=== PATIENT | male | born 1965 | race Caucasian/White ===

== ENCOUNTER 2018-09-10 07:36 | Day surgery (SDC) | payer OTHER ==
--- OUTSIDE RECORDS SUMMARY | 2018-09-10 07:50 | XMS REPORT | Continuity of Care Document ---
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 Inactive [facility] MI, Drug Form: 2013 AUSTEN, Dosing Weight 58.182, kg, ONCE, Start date: 01/25/14 17:00:00, Duration: 1 doses or times, Stop date: 01/25/14 17:00:00Notes: Non formulary item Cascara sagrada 450 mg, 1 cap, Inactive [facility] Route: PO, Drug 2013 Form: CAP, Dosing Weight 58.182, kg, ONCE, Start date: 01/25/14 14:00:00, Stop date: 01/25/14 14:00:00Notes: Non-Formulary Item Milk of Magnesia 60 ml, Route: Inactive [facility] PO, Drug Form: 2014 SUSP, Dosing Weight 58.182, kg, ONCE, Start date: 01/25/14 14:00:00, Stop date: 01/25/14 14:00:00Notes: (Same as: Milk of Magnesia, MOM) Baclofen 10 mg, 1 tab, No Longer [facility] Route: GT, Drug Active 2013 form: TAB, TID, Dosing Weight 66, kg, Start date: 01/25/14 13:00:00, Duration: 60 day, Stop date: 03/26/14 8:30:00Notes: (Same As: Kassandraal) sennosides, [facility] 8.8 mg, 5 mL, Inactive [facility] Route: GT, Drug 2013 Form: SYRP, Dosing Weight 66, kg, QNoon, Start date: 01/25/14 12:00:00, Duration: 60 day, Stop date: 03/25/14 12:00:00Notes: (Same as: Senokot) Amantadine 100 mg, 10 mL, No Longer [facility] Route: GT, Drug Active 2013 form: SYRP, BID, Dosing Weight 66, kg, Start date: 01/25/14 12:00:00, Duration: 60 day, Stop date: 03/26/14 7:00:00Notes: (Same as: Symmetrel) Metoclopramide 5 mg, 5 mL, No Longer [facility] Route: GT, Drug Active 2013 form: SYRP, Q6H, Dosing Weight 66, kg, Start date: 01/25/14 12:00:00, Duration: 60 day, Stop date: 03/26/14 6:00:00Notes: (Same as: Reglan) Take 30 min before meals POLYETHYLENE GLYCOL 17 gm, 1 pkt, No Longer [facility] 3350 Route: GT, Drug Active 2013 form: PWDR, Daily, Dosing Weight 66, kg, Start date: 01/25/14 8:30:00, Duration: 30 day, Stop date: 02/23/14 8:30:00Notes: Dissolve in 8 oz of water or juice. (Same as: Miralax) lansoprazole 30 mg, Route: No Longer [facility] GT, Drug form: Active 2013 TABDIS, Daily, Dosing Weight 66, kg, Start date: 01/25/14 8:30:00, Duration: 30 day, Stop date: 02/23/14 8:30:00 aspirin 325 mg 325 mg, 1 tab, No Longer [facility] tablet Route: GT, Drug Active 2013 form: TAB, Daily, Dosing Weight 66, kg, Start date: 01/25/14 8:30:00, Duration: 60 day, Stop date: 03/25/14 8:30:00Notes: Take with food. NexIUM 40 mg, 1 pkt, No Longer [facility] Route: GT, Drug Active 2013 form: PWDR, Before Breakfast, Start date: 01/25/14 7:30:00, Duration: 30 day, Stop date: 03/25/14 7:30:00Notes: Same as: NexIUM Non-Formulary For nasogastric/gas tric use empty the contents of the sachet into a cup with 15 mL water and drawn up into the syringe, allow to thicken over 2 minutes, and administer within 30 minutes. Propranolol 20 mg, 2 tab, No Longer [facility] Route: GT, Drug Active 2013 form: TAB, Q8H, Dosing Weight 66, kg, Start date: 01/25/14 0:00:00, Duration: 60 day, Stop date: 03/25/14 16:00:00Notes: Give with food. (Same as: Inderal) Levetiracetam 250 500 mg, 5 mL, No Longer [facility] MG Oral Tablet Route: GT, Drug Active 2013 [Keppra] form: SOLN, BID, Dosing Weight 66, kg, Start date: 01/24/14 21:00:00, Duration: 60 day, Stop date: 03/25/14 8:30:00Notes: Same as: Keppra Enoxaparin 30 mg, 0.3 mL, No Longer [facility] Route: SUB-Q, Active 2013 Drug form: INJ, Q12H, Dosing Weight 66, kg, Start date: 01/24/14 21:00:00, Duration: 30 day, Stop date: 02/23/14 9:00:00Notes: (Same as: Lovenox) Docusate Sodium 100 100 mg, 10 mL, No Longer [facility] MG Oral Capsule Route: GT, Drug Active 2013 [Colace] form: LIQ, Q12H, Dosing Weight 66, kg, Start date: 01/24/14 21:00:00, Duration: 60 day, Stop date: 03/25/14 9:00:00Notes: (Same as: Colace) Baclofen 15 mg, 1.5 tab, No Longer [facility] Route: GT, Drug Active 2013 form: TAB, TID, Dosing Weight 66, kg, Start date: 01/24/14 21:00:00, Duration: 60 day, Stop date: 03/25/14 13:00:00Notes: (Same As: Lioresal) Amantadine 100 mg, 10 mL, No Longer [facility] Route: GT, Drug Active 2013 form: SYRP, BID, Dosing Weight 66, kg, Start date: 01/24/14 21:00:00, Duration: 30 day, Stop date: 02/23/14 8:30:00Notes: (Same as: Symmetrel) Metoclopramide 10 mg, 10 mL, No Longer [facility] Route: GT, Drug Active 2013 form: SYRP, Q6H, Dosing Weight 66, kg, Start date: 01/24/14 18:00:00, Duration: 30 day, Stop date: 02/23/14 12:00:00Notes: (Same as: Reglan) Take 30 min before meals Phenobarbital 1,320 mg, 20.31 No Longer [facility] mL, Route: IVP, Active 2013 Drug form: INJ, PRN, Dosing Weight 66, kg, PRN Seizure, Start date: 01/24/14 17:20:00, Duration: 60 day, Stop date: 03/25/14 16:19:00Notes: (Same as: Barbita) Lorazepam 2 mg, 1 mL, No Longer [facility] Route: IVP, Active 2013 Drug form: INJ, PRN, Dosing Weight 66, kg, PRN Seizure, Start date: 01/24/14 17:20:00, Duration: 60 day, Stop date: 03/25/14 16:19:00Notes: (Same as: Ativan) Phenytoin 990 mg, 19.8 No Longer [facility] mL, Route: IVP, Active 2013 Drug form: INJ, PRN, Dosing Weight 66, kg, PRN Seizure, Start date: 01/24/14 17:20:00, Duration: 60 day, Stop date: 03/25/14 16:19:00Notes: (Same as: Dilantin) Concentration=5 0mg/ml Do not infuse faster than 50 mg/min Saline Flush 0.9% 10 mL, Route: No Longer [facility] IVP, Drug Form: 2013 INJ, Dosing Weight 66, kg, PRN, PRN Line Flush, Start date: 01/24/14 17:20:00, Duration: 30 day, Stop date: 02/23/14 17:19:00Notes: (Same as: BD Posiflush) Bisacodyl 10 mg, 1 supp, No Longer [facility] Route: MI, Drug Active 2013 form: SUPP, Daily, Dosing Weight 66, kg, PRN as needed for constipation, Start date: 01/24/14 17:09:00, Duration: 30 day, Stop date: 02/23/14 17:08:00Notes: (Same As: Dulcolax, Bisco-Lax) Tylenol 325 mg, 10.15 No Longer [facility] mL, Route: GT, Active 2013 Drug form: LIQ, Q4H, Dosing Weight 66, kg, PRN Pain, Start date: 01/24/14 17:09:00, Duration: 30 day, Stop date: 02/23/14 17:08:00Notes: Max acetaminophen=4 000mg/day (4 gm/day). (Same as: Tylenol) Acetaminophen 325 1 tab, Route: No Longer [facility] MG / Hydrocodone GT, Drug Form: Active 2013 Bitartrate 5 MG TAB, Dosing Oral Tablet [Artie Weight 66, kg, 5/325] Q6H, PRN as needed for pain, Start date: 01/24/14 17:09:00, Stop date: 03/26/14 17:08:00Notes: (Same as: Artie 325/5) Do not exceed 4gm/day of acetaminophen. Baclofen 15 mg, PEG, On Hold [facility] TID, 0 2013 Refill(s) Acetaminophen 325 325 mg=1 tab, On Hold [facility] MG Oral Tablet PEG, Q4H, Pain, 2014 [Tylenol] # 60 tab, 0 Refill(s) Levetiracetam 250 500 mg=2 tab, On Hold [facility] MG Oral Tablet PEG, BID, # 120 2014 [Keppra] tab, 0 Refill(s) lansoprazole 30 mg 30 mg=1 tab, On Hold [facility] oral tablet, PEG, Daily, # 2014 disintegrating 30 tab, 0 Refill(s) Acetaminophen 325 1 tab, PEG, On Hold [facility] MG / Hydrocodone Q6H, # 30 tab, 2014 Bitartrate 5 MG 0 Refill(s) Oral Tablet [Artie 5/325] Docusate Sodium 100 100 mg=1 cap, On Hold [facility] MG Oral Capsule PEG, Q12H, 2014 [Colace] Constipation, # 20 cap, 0 Refill(s) polyethylene glycol 17 gm, PEG, Active [place] 3350 oral powder Daily, # 527 2014 Medical for reconstitution gm, 0 Center Refill(s), other pantoprazole 40 mg =40 mg, IVP, Active [facility] intravenous BID, # 500 mg, 2014 Medical injection 0 Refill(s), Center other metoclopramide 5 10 mg=2 mL, Active [place] mg/mL injectable IVP, Q6H, # 200 2014 Medical solution mL, 0 Center Refill(s), other Melatonin 3 mg oral 3 mg=1 tab, PO, Active [facility] tablet Bedtime, # 60 2013 Medical tab, 0 Center Refill(s), other labetalol 5 mg/mL 10 mg=2 mL, IV, Active [facility] intravenous Q4H, 2013 Medical solution Hypertension | Center sbp greater than 140 and hr greater than 100, # 200 mL, 0 Refill(s), other Erythromycin 800 mg=10 mL, Active [facility] Ethylsuccinate 80 PO, ABXQ6H, # 2013 Medical MG/ML Oral 200 mL, 0 Center Suspension Refill(s), other enoxaparin 30 30 mg=0.3 mL, Active [place] mg/0.3 mL SUB-Q, Q12H, # 2013 Medical subcutaneous 30 mL, 0 Center solution Refill(s), other bisacodyl 10 mg 10 mg=1 supp, Active [facility] rectal suppository MI, ONCE, 2013 Medical Constipation, # Center 1 supp, 0 Refill(s), other aspirin 325 mg 325 mg=1 tab, Active [facility] tablet PO, Daily, # 50 2013 Medical tab, 0 Center Refill(s), other amantadine 10 mg/ml 100 mg=10 mL, Active [facility] cmpd oral PO, BID, # 500 2013 Medical suspension mL, 0 Center Refill(s), other Potassium Chloride 40 mEq=30 mL, Active [facility] 1.33 MEQ/ML Oral PEG, ONCE, 2013 Medical Solution Abnormal Lab Center Result, # 30 mL, 0 Refill(s), other senna 8.8 mg/5 mL 17.6 mg=10 mL, Active [facility] oral syrup PO, QNoon, # 2013 Medical 240 mL, 0 Center Refill(s), other propranolol 20 mg 20 mg=1 tab, Active [facility] oral tablet PO, Q8H, # 30 2013 Medical tab, 0 Center Refill(s), other Erythromycin 800 mg, 10 mL, No Longer [facility] Ethylsuccinate 80 Route: PO, Drug Active 2013 Medical MG/ML Oral Form: SUSP, Center Suspension Dosing Weight 66, kg, ABXQ6H, Start date: 12/26/13 23:00:00, Stop date: 01/25/14 17:00:00Notes: (Same as: E.E.S.-400) Magnesium Sulfate 2 gm, 50 mL, Inactive [facility] Route: IVPB2013 Medical Drug form: INJ, Center Q2H, Dosing Weight 66, kg, Total dose=4 gm, Start date: 12/26/13 10:00:00, Duration: 2 doses or times, Stop date: 12/26/13 12:00:00 Reglan 10 mg, 2 mL, No Longer [facility] Route: IVP, Active 2013 Medical Drug form: INJ, Center Q6H, Dosing Weight 66, kg, Start date: 12/25/13 0:00:00, Duration: 30 day, Stop date: 01/23/14 18:00:00Notes: (Same as: Reglan) Erythromycin 500 mg, 1 tab, No Longer [facility] Route: PO, Drug Active 2013 Medical form: TAB, Center ABXQ6H, Dosing Weight 66, kg, Start date: 12/24/13 20:00:00, Duration: 30 day, Stop date: 01/23/14 16:00:00Notes: (Same as: erythromycin base) Give With Food "Do Not Crush" magnesium sulfate 2 gm, 50 mL, Inactive [facility] Route: IVPB2013 Medical Drug form: INJ, Center Q2H, Dosing Weight 66, kg, Total dose=4 gm, Start date: 12/24/13 16:05:00, Duration: 1 doses or times, Stop date: 12/24/13 16:05:00 Magnesium Sulfate 2 gm, 50 mL, Inactive [facility] Route: IVPB2013 Medical Drug form: INJ, Center Q2H, Dosing Weight 66, kg, Total dose=4 gm, Start date: 12/24/13 10:00:00, Duration: 2 doses or times, Stop date: 12/24/13 12:00:00 Phosphorus / 18 mmol, 6 mL, Inactive [facility] Potassium Route: IVPB2013 Medical ONCE, Dosing Center Weight 66, kg, Start date: 12/24/13 9:52:00, Stop date: 12/24/13 9:52:00Notes: (Same as: K Phosphate.) 1 mMol phoshate has 1.47 mEq potassium Infuse over 4 hours Potassium Chloride 20 mEq, 100 mL, Inactive [place] Route: IVPB, 2013 Medical Drug form: INJ, Center ONCE, Dosing Weight 66, kg, Start date: 12/24/13 9:51:00, Stop date: 12/24/13 9:51:00Notes: (Same as: KCL) Infuse no faster than 10 mEq/hr if given peripherally. Neutra-Phos 2 pkt, Route: Inactive [facility] PO, Drug Form: 2013 Medical PDR/REC, Dosing Center Weight 66, kg, ONCE, Start date: 12/24/13 9:25:00, Stop date: 12/24/13 9:25:00Notes: (Same as: Neutra-Phos) Each 1.25 gm pkt has 250mg phosphorous. Mix w/2.5oz water and stir. Potassium Chloride 40 mEq, 2 tab, Inactive [facility] Route: PO, Drug 2013 Medical form: ERTAB, Center ONCE, Dosing Weight 66, kg, Electrolyte replacement, Start date: 12/24/13 9:25:00, Stop date: 12/24/13 9:25:00Notes: (Same as: K-Dur 20) "Do Not Crush" With food and full glass of water Protonix 80 mg, Route: No Longer [facility] IVP, BID, Active 2013 Medical Dosing Weight Center 66, kg, Start date: 12/24/13 9:00:00, Duration: 30 day, Stop date: 01/22/14 17:00:00 Protonix 40 mg, Route: No Longer [facility] IVP, Drug form: Active 2013 Medical INJ, BID, Center Dosing Weight 66, kg, Start date: 12/23/13 17:00:00, Duration: 30 day, Stop date: 01/22/14 9:00:00Notes: For IV push reconstitute with 10 ml 0.9% sodium chloride and push over 2 minutes. (Same as: Protonix) Protonix 40 mg, Route: Inactive [facility] IVP, Drug form: 2013 Medical INJ, Daily, Center Dosing Weight 66, kg, Patient is NPO, Priority: STAT, Start date: 12/23/13 6:48:00, Duration: 30 day, Stop date: 01/21/14 9:00:00Notes: (Same as: Protonix) Propranolol 20 mg, 1 tab, No Longer [facility] Route: PO, Drug Active 2013 Medical form: TAB, Q8H, Center Dosing Weight 66, kg, Start date: 12/23/13 0:00:00, Duration: 30 day, Stop date: 01/21/14 16:00:00Notes: Give with food. (Same as: Inderal) Geodon 20 mg, 1 cap, No Longer [facility] Route: PO, Drug Active 2013 Medical form: CAP, Center Q12H, Dosing Weight 66, kg, PRN Agitation, Start date: 12/22/13 19:25:00, Duration: 30 day, Stop date: 01/21/14 19:24:00Notes: (Same As: Geodon) Give with Food Labetalol 10 mg, 2 mL, No Longer [place] Route: IV, Drug Active 2013 Medical form: INJ, Q4H, Center Dosing Weight 66, kg, PRN Hypertension, Start date: 12/22/13 19:25:00, Duration: 30 day, Stop date: 01/21/14 19:24:00, sbp greater than 140 and hr greater than 100 Potassium Chloride 20 mEq, 100 mL, Inactive [place] Route: IVPB, 2013 Medical Drug form: INJ, Center ONCE, Dosing Weight 66, kg, Start date: 12/22/13 16:09:00, Stop date: 12/22/13 16:09:00Notes: (Same as: KCL) Infuse no faster than 10 mEq/hr if given peripherally. Potassium Chloride 40 mEq, 30 mL, No Longer [facility] Route: PEG, Active 2013 Medical Drug form: LIQ, Center ONCE, Dosing Weight 66, kg, PRN Abnormal Lab Result, Electrolyte replacement, Start date: 12/22/13 16:07:00, Stop date: 01/21/14 16:06:00Notes: (Same as: Potassium Chloride) Lactated Ringers IV 1,000 mL, Rate: No Longer [facility] 1,000 mL 100 ml/hr, Active 2013 Medical Infuse over: 10 Center hr, Route: IV, Dosing Weight 66 kg, Total Volume: 1,000, Start date: 12/22/13 15:20:00, Duration: 30 day, Stop date: 01/21/14 15:19:00 Calcium Chloride 1,000 mL, Rate: Inactive [facility] 0.0014 MEQ/ML / 125 ml/hr, 2013 Medical Potassium Chloride Infuse over: 8 Center 0.004 MEQ/ML / hr, Route: IV, Sodium Chloride Dosing Weight 0.103 MEQ/ML / 66 kg, Total Sodium Lactate Volume: 1,000, 0.028 MEQ/ML Start date: Injectable Solution 12/21/13 14:44:00, Stop date: 12/22/13 0:00:00 Metoprolol 1 mg, 1 mL, Inactive 12/21[facility] Route: IVP2013 Medical Drug form: INJ, Center Q5Min, Dosing Weight 66, kg, PRN Other -See Comment, Start date: 12/21/13 14:44:00, Duration: 5 doses or times, Stop date: 12/22/13 0:00:00Notes: (Same as: Lopressor) Push over 2 minutes Hydromorphone 0.5 mg, 0.25 Inactive [facility] mL, Route: IVP, 2013 Medical Drug form: INJ, Center Q5Min, Dosing Weight 66, kg, PRN Pain Score 7-10, Start date: 12/21/13 14:44:00, Duration: 4 doses or times, Stop date: 12/22/13 0:00:00Notes: Same as: Dilaudid Ondansetron 4 mg, 2 mL, Inactive 12/21[facility] Route: IVP, 2013 Medical Drug form: INJ, Center ONCE, Dosing Weight 66, kg, PRN Nausea & Vomiting, Start date: 12/21/13 14:44:00Notes: (Same as: Zofran) Fleet Enema 133 ml, Route: Inactive 12/18[facility] [place], Drug Form: 2013 Medical AUSTEN, Dosing Center Weight 66, kg, ONCE, Start date: 12/18/13 11:03:00, Stop date: 12/18/13 11:03:00 Fleet Enema 133 ml, Route: Inactive [facility] MI, Drug Form: 2013 Medical AUSTEN, Dosing Center Weight 66, kg, ONCE, Start date: 12/17/13 21:12:00, Stop date: 12/17/13 21:12:00 Fleet Enema 133 ml, Route: Inactive [facility] MI, Drug Form: 2013 Medical AUSTEN, Dosing Center Weight 66, kg, ONCE, STAT, Start date: 12/17/13 20:03:00, Stop date: 12/17/13 20:03:00 Fleet Enema 133 ml, Route: Inactive [facility] MI, Drug Form: 2013 Medical AUSTEN, Dosing Center Weight 66, kg, ONCE, Start date: 12/17/13 18:39:00, Stop date: 12/17/13 18:39:00 Miralax 17 gm, 1 pkt, No Longer [place] Route: PEG, Active 2013 Medical Drug form: Center PWDR, Daily, Dosing Weight 66, kg, Start date: 12/17/13 15:00:00, Duration: 30 day, Stop date: 01/16/14 9:00:00Notes: Dissolve in 8 oz of water or juice. (Same as: Miralax) Bisacodyl 10 mg, 1 supp, No Longer [facility] Route: MI, Drug Active 2013 Medical form: SUPP, Center ONCE, Dosing Weight 66, kg, PRN Constipation, Start date: 12/17/13 11:43:00Notes: (Same As: Dulcolax, Bisco-Lax) Fleet Enema 133 ml, Route: Inactive [facility] MI, Drug Form: 2013 Medical AUSTEN, Dosing Center Weight 66, kg, ONCE, Start date: 12/17/13 8:30:00, Stop date: 12/17/13 8:30:00 Zosyn 3.375 gm, Inactive [facility] Route: IVPB, 2013 Medical Drug form: Center PDR/INJ, ABXQ6H, Dosing Weight 66, kg, Start date: 12/17/13 8:00:00, Duration: 30 day, Stop date: 01/16/14 2:00:00 Iohexol 78 mL, Route: No Longer [place] IVP, Drug Form: Active 2013 Medical SOLN, Dosing Center Weight 66, kg, ONCALL, STAT, Start date: 12/17/13 1:40:00, Duration: 1 doses or times, Stop date: 12/18/13 0:00:00, Weight=60 - 74kg -- "To be infused by Radiology Staff ONLY"Special Instructions: Weight=60 - 74kg -- "To be infused by Radiology Staff ONLY"Notes: (same as:Omnipaque 350). Flagyl 500 mg, 100 mL, No Longer [place] Route: IVPB, 2013 Medical Drug form: INJ, Center ABXQ6H, Dosing Weight 66, kg, Start date: 12/16/13 22:00:00, Duration: 30 day, Stop date: 01/15/14 16:00:00Notes: (Same as: Flagyl) Avoid alcohol. Zosyn 3.375 gm, No Longer [place] Route: IVPB, 2013 Medical Drug form: Center PDR/INJ, ABXQ8H, Dosing Weight 66, kg, CrCl >=20 ml/min infuse over 4 hours, Start date: 12/16/13 22:00:00, Stop date: 01/15/14 14:00:00Notes: (Same as: Zosyn) Dosing based on Piperacillin component NS 1,000 mL 1,000 mL, Rate: No Longer [place] 100 ml/hr, 2013 Medical Infuse over: 10 Center hr, Route: IV, Dosing Weight 66 kg, Total Volume: 1,000, Start date: 12/16/13 21:47:00, Duration: 30 day, Stop date: 01/15/14 21:46:00 Propranolol 20 mg, Route: No Longer [place] PEG, Drug form: Active 2013 Medical TAB, Q6H, Center Dosing Weight 66, kg, Start date: 12/16/13 12:00:00, Duration: 30 day, Stop date: 01/15/14 6:00:00Notes: Give with food. (Same as: Inderal) Amantadine 100 mg, 10 mL, No Longer [place] Route: PO, Drug Active 2013 Medical form: SYRP, Center BID, Dosing Weight 66, kg, please change time to 8 am and noon, Start date: 12/16/13 12:00:00, Duration: 30 day, Stop date: 01/15/14 8:00:00Notes: (Same as: Symmetrel) Milk of Magnesia 30 ml, Route: Inactive [place] PEG, Drug Form: 2013 Medical SUSP, Dosing Center Weight 66, kg, ONCE, Start date: 12/16/13 11:18:00, Stop date: 12/16/13 11:18:00Notes: (Same as: Milk of Magnesia, MOM) Ritalin 5 mg, 1 tab, No Longer [facility] Route: PO, Drug Active 2013 Medical form: TAB, Center BID-12-14, Dosing Weight 66, kg, please change time to 8 am and noon, Start date: 12/16/13 8:00:00, Duration: 30 day, Stop date: 01/14/14 13:00:00Notes: (Same as:Ritalin) Acetaminophen 325 1 tab, Route: No Longer [place] MG / Hydrocodone PEG, Drug Form: Active 2013 Medical Bitartrate 5 MG TAB, Dosing Center Oral Tablet [Artie Weight 66, kg, 5/325] Q6H, Start date: 12/15/13 18:00:00, Duration: 30 day, Stop date: 01/14/14 12:00:00Notes: (Same as: Artie 325/5) Do not exceed 4gm/day of acetaminophen. Acetaminophen 325 1 tab, Route: No Longer [place] MG / Hydrocodone PEG, Drug Form: Active 2013 Medical Bitartrate 5 MG TAB, Dosing Center Oral Tablet [Artie Weight 66, kg, 5/325] Q6H, PRN Pain, Start date: 12/15/13 13:46:00, Stop date: 01/14/14 13:45:00Notes: (Same as: Artie 325/5) Do not exceed 4gm/day of acetaminophen. Acetaminophen 325 1 tab, Route: Inactive [place] MG / Hydrocodone PO, Drug Form: 2013 Medical Bitartrate 5 MG TAB, Dosing Center Oral Tablet [Artie Weight 66, kg, 5/325] Q6H, PRN Pain, Start date: 12/15/13 13:45:00, Duration: 30 day, Stop date: 01/14/14 13:44:00 Melatonin 3 mg oral 3 mg, 1 tab, No Longer [place] tablet Route: PO, Drug Active 2013 Medical Form: TAB, Center Dosing Weight 66, kg, Bedtime, Start date: 12/14/13 21:00:00, Duration: 30 day, Stop date: 01/12/14 21:00:00Notes: (Same as: Melatonin) Non-Formulary Drug Dulcolax Laxative 10 mg, 1 supp, No Longer [facility] Route: [place], Drug Active 2013 Medical form: SUPP, Center Bedtime, Start date: 12/14/13 21:00:00, Duration: 30 day, Stop date: 01/12/14 21:00:00Notes: (Same As: Dulcolax, Bisco-Lax) Levaquin 500 mg, 1 tab, No Longer [facility] Route: PEG, Active 2013 Medical Drug form: TAB, Center [id number], Dosing Weight 66, kg, Start date: 12/14/13 19:00:00, Duration: 30 day, Stop date: 01/12/14 19:00:00 Ritalin 5 mg, 1 tab, No Longer [place] Route: PO, Drug Active 2013 Medical form: TAB, BID, Center Dosing Weight 66, kg, please change time to 8 am and noon, Start date: 12/14/13 17:00:00, Duration: 30 day, Stop date: 01/13/14 9:00:00Notes: (Same as:Ritalin) sennosides, [facility] 17.6 mg, 10 mL, No Longer [facility] Route: PO, Drug Active 2013 Medical Form: SYRP, Center Dosing Weight 66, kg, QNoon, Start date: 12/14/13 12:00:00, Duration: 30 day, Stop date: 01/12/14 12:00:00Notes: (Same as: Senokot) Amantadine 50 mg, 5 mL, No Longer [facility] Route: PO, Drug Active 2013 Medical form: SYRP, Center BID, Dosing Weight 66, kg, please change time to 8 am and noon, Start date: 12/14/13 12:00:00, Duration: 30 day, Stop date: 01/13/14 8:00:00Notes: (Same as: Symmetrel) Oxycodone 2.5 mg, 2.5 mL, No Longer [place] Hydrochloride 5 MG Route: PO, Drug Active 2013 Medical Oral Tablet form: LIQ, Q6H, Center Dosing Weight 81.818, kg, Start date: 12/14/13 12:00:00, Duration: 30 day, Stop date: 01/13/14 6:00:00Notes: (Same as: 'Roxicodone) Milk of Magnesia 30 ml, Route: Inactive [facility] PEG, Drug Form: 2013 Medical SUSP, Dosing Center Weight 66, kg, ONCE, Start date: 12/14/13 11:21:00, Stop date: 12/14/13 11:21:00Notes: (Same as: Milk of Magnesia, MOM) Tylenol 325 mg, 1 tab, No Longer [facility] Route: PO, Drug Active 2013 Medical form: TAB, Q4H, Center Dosing Weight 66, kg, PRN Fever, Start date: 12/13/13 4:39:00, Duration: 30 day, Stop date: 01/12/14 4:38:00Notes: Do not exceed 4 gm/day. (Same as: Tylenol) Bromocriptine 0.8 2.5 mg, 1 tab, No Longer [place] MG Oral Tablet Route: PO, Drug Active 2013 Medical form: TAB, Center Q12H, Dosing Weight 66, kg, Start date: 12/12/13 9:00:00, Duration: 30 day, Stop date: 01/10/14 21:00:00Notes: (Same As: Parlodel) Morphine 2 mg, Route: Inactive [place] IVP, ONCE, 2013 Medical Dosing Weight Center 66, kg, Start date: 12/12/13 4:10:00, Stop date: 12/12/13 4:10:00 Morphine 2 mg, 1 mL, Inactive [place] Route: IVP, 2013 Medical Drug form: INJ, Center ONCE, Dosing Weight 66, kg, Start date: 12/11/13 22:39:00, Stop date: 12/11/13 22:39:00Notes: (Same as:MORPhine Sulfate) magnesium sulfate 2 gm, 50 mL, Inactive [place] Route: IVPB, 2013 Medical Drug form: INJ, Center ONCE, Start date: 12/10/13 4:30:00, Stop date: 12/10/13 4:30:00 Rocuronium 50 mg, 5 mL, Inactive [place] Route: IV, Drug 2013 Medical form: INJ, Center ONCE, Dosing Weight 66, kg, Start date: 12/09/13 11:40:00, Stop date: 12/09/13 11:40:00Notes: (Same as: Rodolfo) Propofol 10 MG/ML 1,000 mg, 100 No Longer [place] Injectable mL, Rate: Active 2013 Medical Suspension Titrate as Center directed, Dosing Weight 66, kg, Route: IV, Total Volume: 100 ml, Start date: 12/09/13 11:38:00, Duration: 30 day, Stop date: 01/08/14 11:37:00, Replace Every: 12 hrNotes: If Diprivan - change bottle & tubing every 12 hr Per state nursing law propofol can only be given by a nurse if patient is intubated or being intubated (unless the nurse is a CONSTRUCTION CARPENTER). Same as: Diprivan Lidocaine 5 ml, Route: Inactive [place] Hydrochloride 40 MUCOUS MEM, 2013 Medical MG/ML Mucous Drug Form: [place] Membrane Topical SOLN, Dosing Solution Weight 66, kg, ONCE, Start date: 12/09/13 11:15:00, Stop date: 12/09/13 11:15:00Notes: (Same as: Xylocaine) Fentanyl 200 microgram, Inactive [place] 4 mL, Route: 2013 Medical IVP, Drug form: Center INJ, ONCE, Dosing Weight 66, kg, Start date: 12/09/13 11:15:00, Stop date: 12/09/13 11:15:00Notes: (Same as: Sublimaze) Preservative free. Propofol 10 MG/ML 500 mg, 50 mL, No Longer [place] Injectable Rate: Titrate Active 2013 Medical Suspension as directed, Center Dosing Weight 66, kg, Route: IV, Total Volume: 50 ml, Start date: 12/09/13 11:14:00, Duration: 30 day, Stop date: 01/08/14 11:13:00, Replace Every: 12 hrNotes: If Diprivan - change bottle & tubing every 12 hr Per state nursing law propofol can only be given by a nurse if patient is intubated or being intubated (unless the nurse is a CONSTRUCTION CARPENTER). Same as: Diprivan Magnesium Sulfate 1 gm, 100 mL, Inactive [place] Route: IVPB, 2013 Medical Drug form: INJ, Center ONCE, Dosing Weight 66, kg, Total dose=2 gm, Start date: 12/07/13 10:55:00, Duration: 1 doses or times, Stop date: 12/07/13 10:55:00 potassium 250 mg, 1 tab, No Longer [place] phosphate-sodium Route: PO, Drug Active 2013 Medical phosphate 250 mg-45 Form: TAB, Center mg-298 mg oral TID-Before tablet Meals, Start date: 12/06/13 18:00:00, Duration: 30 day, Stop date: 01/05/14 16:30:00Notes: Non-Fomrulary Drug. (Same as: K-Phos) Ancef 2 gm, Route: Inactive [facility] IVPB, ONCE, 2013 Medical Dosing Weight Center 66, kg, Start date: 12/06/13 16:01:00, Duration: 1 doses or times, Stop date: 12/06/13 16:01:00 Dulcolax Laxative 10 mg, 1 supp, No Longer [facility] Route: MI, Drug Active 2013 Medical form: SUPP, Center Daily, Start date: 12/06/13 9:00:00, Duration: 30 day, Stop date: 01/04/14 9:00:00Notes: (Same As: Dulcolax, Bisco-Lax) Neutra-Phos 1 pkt, Route: Inactive [facility] PO, Drug Form: 2013 Medical PDR/REC, Dosing Center Weight 66, kg, TID-Before Meals, Start date: 12/06/13 7:30:00, Duration: 30 day, Stop date: 01/04/14 16:30:00Notes: (Same as: Neutra-Phos) Each 1.25 gm pkt has 250mg phosphorous. Mix w/2.5oz water and stir. Magnesium Sulfate 2 gm, 50 mL, Inactive [facility] Route: IVPB2013 Medical Drug form: INJ, Center ONCE, Dosing Weight 66, kg, Start date: 12/06/13 5:57:00, Duration: 2 hr, Stop date: 12/06/13 5:57:00 Magnesium Sulfate 2 gm, 50 mL, Inactive [facility] Route: IVPB2013 Medical Drug form: INJ, Center ONCE, Dosing Weight 66, kg, Total dose=2 gm, Start date: 12/06/13 3:10:00, Duration: 1 doses or times, Stop date: 12/06/13 3:10:00 Dilantin 100 mg, 2 mL, No Longer [facility] Route: IV, Drug Active 2013 Medical form: INJ, Q8H, Center Start date: 12/05/13 12:00:00, Stop date: 12/08/13 18:15:00Notes: (Same as: Dilantin) Do not infuse greater than 50 mg/min. potassium 500 mg, 2 tab, No Longer [facility] phosphate-sodium Route: NG, Drug Active 2013 Medical phosphate 250 mg-45 Form: TAB, Q6H, Center mg-298 mg oral Start date: tablet 12/05/13 12:00:00, Duration: 3 day, Stop date: 12/08/13 6:00:00Notes: Non-Fomrulary Drug. (Same as: K-Phos) Neutra-Phos 2 pkt, Route: Inactive [place] NG, Dosing 2013 Medical Weight 66, kg, Center Q6H, Start date: 12/05/13 12:00:00, Duration: 30 day, Stop date: 01/04/14 6:00:00 Lovenox 30 mg, 0.3 mL, No Longer [facility] Route: SUB-Q, Active 2013 Medical Drug form: INJ, Center Q12H, Dosing Weight 66, kg, Priority: NOW, Start date: 12/05/13 11:07:00, Duration: 30 day, Stop date: 02/03/14 4:00:00Notes: (Same as: Lovenox) Potassium Chloride 20 mEq, 15 mL, No Longer [facility] 1.33 MEQ/ML Oral Route: PO, Drug Active 2013 Medical Solution form: LIQ, Center Daily, Dosing Weight 66, kg, Start date: 12/05/13 9:00:00, Duration: 30 day, Stop date: 01/03/14 9:00:00 Aspirin / Calcium 325 mg, 1 tab, No Longer [facility] Carbonate Route: PO, Drug Active 2013 Medical form: TAB, Center Daily, Dosing Weight 66, kg, Start date: 12/05/13 9:00:00, Duration: 30 day, Stop date: 02/02/14 9:00:00Notes: Take with food. Propranolol 15 mg, 1.5 tab, No Longer [facility] Route: PO, Drug Active 2013 Medical form: TAB, Q6H, Center Dosing Weight 66, kg, Start date: 12/04/13 12:00:00, Stop date: 01/03/14 6:00:00Notes: Give with food. (Same as: Inderal) Potassium Chloride 20 mEq, 15 mL, Inactive [facility] 1.33 MEQ/ML Oral Route: PO, Drug 2013 Medical Solution form: LIQ, Center ONCE, Dosing Weight 66, kg, Start date: 12/04/13 10:36:00, Stop date: 12/04/13 10:36:00Notes: (Same as: Potassium Chloride) Haldol 2 mg, 1 tab, No Longer [facility] Route: PO, Drug Active 2013 Medical form: TAB, TID, Center Dosing Weight 66, kg, PRN Agitation, Start date: 12/04/13 10:30:00, Duration: 30 day, Stop date: 01/03/14 10:29:00Notes: (Same as: Haldol) Aspirin / Calcium 325 mg, 1 tab, Inactive [facility] Carbonate Route: NG, Drug 2013 Medical form: TAB, Center Daily, Dosing Weight 66, kg, Start date: 12/04/13 9:00:00, Duration: 30 day, Stop date: 01/02/14 9:00:00Notes: Take with food. Dilantin 300 mg, 3 cap, No Longer [facility] Route: PO, Drug Active 2013 Medical form: ERCAP, Alexander Bedtime, Dosing Weight 81.818, kg, Start date: 12/03/13 21:00:00, Duration: 30 day, Stop date: 01/01/14 21:00:00Notes: (Same as: Dilantin) Do not open, crush, or chew. Reglan 10 mg, 10 mL, Inactive [facility] Route: NG, Drug 2013 Medical form: SYRP, [place] ONCE, Dosing Weight 66, kg, Start date: 12/03/13 17:20:00, Stop date: 12/03/13 17:20:00Notes: (Same as: Reglan) Take 30 min before meals Lyrica 50 mg, 1 cap, No Longer [facility] Route: PO, Drug Active 2013 Medical form: CAP, Q8H, Center Dosing Weight 66, kg, Start date: 12/03/13 16:00:00, Duration: 30 day, Stop date: 01/02/14 8:00:00Notes: Same as Lyrica aspirin 325 mg 325 mg, 1 tab, Inactive [facility] tablet Route: PO, Drug 2013 Medical form: TAB, Center Daily, Dosing Weight 66, kg, Priority: NOW, Start date: 12/03/13 14:50:00, Duration: 30 day, Stop date: 01/02/14 9:00:00Notes: Take with food. Bisacodyl 10 mg, 2 tab, No Longer [facility] Route: PO, Drug Active 2013 Medical form: ECTAB, Center Daily, Dosing Weight 81.818, kg, Start date: 12/03/13 9:00:00, Duration: 30 day, Stop date: 01/01/14 9:00:00Notes: (Same As: Dulcolax, Correctol) (Do Not Crush) "Do Not Crush" docusate sodium 100 mg, 1 cap, Inactive [facility] Route: PO, Drug 2013 Medical form: CAP, BID, Center Dosing Weight 81.818, kg, Start date: 12/03/13 9:00:00, Duration: 30 day, Stop date: 01/01/14 17:00:00Notes: (Same as: Colace) (Do Not Crush) Celebrex 200 mg, 2 cap, No Longer [place] Route: PO, Drug Active 2013 Medical form: CAP, Center Q12H, Dosing Weight 66, kg, Start date: 12/03/13 9:00:00, Duration: 30 day, Stop date: 01/01/14 21:00:00Notes: NSAID. Please check indication. Not for seizure. (Same As: CeleBREX ) Famotidine 20 mg, 2 mL, No Longer [place] Route: IV, Drug Active 2013 Medical form: INJ, Center Q12H, Dosing Weight 81.818, kg, Start date: 12/03/13 9:00:00, Duration: 30 day, Stop date: 01/01/14 21:00:00Notes: (Same as: Pepcid) Docusate 100 mg, 10 mL, No Longer [place] Route: NG, Drug Active 2013 Medical form: LIQ, Center Q12H, Dosing Weight 66, kg, Start date: 12/03/13 8:58:00, Stop date: 02/01/14 9:00:00Notes: (Same as: Colace) Magnesium Sulfate 4 gm, 100 mL, Inactive [place] Route: IV, Drug 2013 Medical form: INJ, Center ONCE, Dosing Weight 66, kg, Start date: 12/03/13 8:49:00, Stop date: 12/03/13 8:49:00 Tylenol 1,000 mg, 2 No Longer [place] tab, Route: PO, Active 2013 Medical Drug form: TAB, Center Q6H, Dosing Weight 81.818, kg, Start date: 12/03/13 6:00:00, Duration: 30 day, Stop date: 01/02/14 0:00:00Notes: Max acetaminophen 4000 mg/day (4 gm/day). (Same as: Tylenol Extra Strength) Oxycodone 5 mg, 1 tab, No Longer [place] Hydrochloride 5 MG Route: PO, Drug Active 2013 Medical Oral Tablet form: TAB, Q6H, Center Dosing Weight 81.818, kg, Start date: 12/03/13 6:00:00, Duration: 30 day, Stop date: 01/02/14 0:00:00Notes: (Same as: Roxicodone) NS 1,000 mL 1,000 mL, Rate: No Longer [place] 100 ml/hr, Active 2013 Medical Infuse over: 10 Center hr, Route: IV, Dosing Weight 81.818 kg, Total Volume: 1,000, Start date: 12/03/13 4:00:00, Duration: 30 day, Stop date: 01/02/14 3:59:00 Oxycodone 5 mg, 1 tab, No Longer [place] Hydrochloride 5 MG Route: NG, Drug Active 2013 Medical Oral Tablet form: TAB, Q4H, Center Dosing Weight 81.818, kg, PRN Pain Score 6-10, Start date: 12/03/13 3:43:00, Stop date: 01/02/14 3:42:00Notes: (Same as: Roxicodone) Dextrose 50% 12.5 gm, 25 mL, No Longer [place] Syringe Route: IVP, Active 2013 Medical Drug Form: INJ, Center Dosing Weight 81.818, kg, PRN, PRN Abnormal Lab Result, Start date: 12/03/13 3:42:00, Duration: 30 day, Stop date: 01/02/14 3:41:00, For [facility]SBG 40mg/dL - 60mg/dLSpecial Instructions: For [facility]SBG 40mg/dL - 60mg/dL Insulin, Regular, 10 unit, 0.1 No Longer [place] Pork mL, Route: Active 2013 Medical SUB-Q, Drug Center form: SOLN, PRN, Dosing Weight 81.818, kg, PRN Abnormal Lab Result, Start date: 12/03/13 3:42:00, Duration: 30 day, Stop date: 01/02/14 3:41:00, For FSBG 200mg/dL - 249mg/dLSpecial Instructions: For [facility]SBG 200mg/dL - 249mg/dLNotes: (Same as: Humulin R) Roll in palms of hands gently; Do not shake vigorously. "single patient use only" (Restricted to patients requiring a dose > 60 units) Stable for 28 days at room temperature Expires in days from D ate Oxycodone 5 mg, 1 tab, No Longer [place] Hydrochloride 5 MG Route: PO, Drug Active 2013 Medical Oral Tablet form: TAB, Q4H, Center Dosing Weight 81.818, kg, PRN Pain Score 4-6, Start date: 12/02/13 23:53:00, Duration: 30 day, Stop date: 01/01/14 23:52:00Notes: (Same as: Roxicodone) Tramadol 50 mg, 1 tab, No Longer [facility] Route: PO, Drug Active 2013 Medical form: TAB, Q6H, Center Dosing Weight 81.818, kg, Priority: NOW, Start date: 12/02/13 23:53:00, Duration: 30 day, Stop date: 01/01/14 18:00:00Notes: Not to exceed 400mg/day. (Same As: Ultram) Acetaminophen 1,000 mg, 100 No Longer [place] mL, Route: Active 2013 Medical IVPB, Drug Center form: INJ, Q6H, Dosing Weight 81.818, kg, Priority: NOW, Start date: 12/02/13 23:53:00, Duration: 48 hr, Stop date: 12/04/13 18:00:00Notes: Infuse over 15 minutes Do not exceed 4gm/day of acetaminophen pregabalin 100 mg, 1 cap, No Longer [place] Route: PO, Drug Active 2013 Medical form: CAP, Q8H, Center Dosing Weight 81.818, kg, Priority: NOW, Start date: 12/02/13 23:53:00, Duration: 48 hr, Stop date: 12/04/13 16:00:00Notes: (Same as: Lyrica) celecoxib 200 mg, 2 cap, No Longer [facility] Route: PO, Drug Active 2013 Medical form: CAP, Center Q12H, Dosing Weight 81.818, kg, Priority: NOW, Start date: 12/02/13 23:53:00, Duration: 48 hr, Stop date: 12/04/13 21:00:00Notes: NSAID. Please check indication. Not for seizure. (Same As: CeleBREX ) fosphenytoin 1,000 mg, 20 No Longer [place] mL, Route: Active 2013 Medical IVPB, ONCE, Center Dosing Weight 81.818, kg, Priority: STAT, Start date: 12/02/13 23:47:00, Stop date: 12/02/13 23:47:00, Loading doseSpecial Instructions: Loading doseNotes: (Same as: Cerebyx) Stated mg=mgPE. Refrigerate ANTICONVULSANT* * Do not confuse with celebrex. Propofol 10 MG/ML 1,000 mg, 100 No Longer [place] Injectable mL, Rate: Active 2013 Medical Suspension Titrate, Dosing Center Weight 81.818, kg, Route: IV, Total Volume: 100, Start date: 12/02/13 23:44:00, Duration: 30 day, Stop date: 01/01/14 23:43:00, Replace Every: 12 hrNotes: If Diprivan - change bottle & tubing every 12 hr Per state nursing law propofol can only be given by a nurse if patient is intubated or being intubated (unless the nurse is a CONSTRUCTION CARPENTER). Same as: Diprivan Cefazolin 2 gm, Route: Inactive [place] IVPB, ONCE, 2013 Medical Dosing Weight Center 81.818, kg, Priority: STAT, Start date: 12/02/13 23:29:00, Stop date: 12/02/13 23:29:00 iodixanol 100 mL, Route: Inactive [facility] IVP, Drug Form: 2013 Medical SOLN, Dosing Center Weight 81.818, kg, ONCALL, STAT, Start date: 12/02/13 23:09:00, Duration: 1 doses or times, Dose=2.2ml/kg, Max flkh=[id number] -- "To be infused by Radiology Staff ONLY"Special Instructions: Dose=2.2ml/kg, Max ucwp=794sf -- "To be infused by Radiology Staff ONLY" Saline Flush 0.9% 5 mL, Route: No Longer [facility] IVP, Drug Form: Active 2013 Medical INJ, kg, PRN, Center PRN Line Flush, Administer at least once every 12 hours, Start date: 12/02/13 22:53:00, Duration: 30 day, Stop date: 01/01/14 22:52:00Notes: (Same as: BD Posiflush) Allergies, Adverse Reactions, Alerts Substance Category Reaction Severity Reaction Status Date Comments Source type Reported Thiopental Assertion anphlyatic Drug Active [facility] Sodium allergy [facility] Immunizations Immunization Date Given Site Status Last Comments Source Updated diphtheria/pertus 12/03/2013 Left completed [facility], sis, acel/tetanus deltoid [facility], [facility] diphtheria/pertus 12/03/2013 Left completed [facility], sis, acel/tetanus deltoid [facility], [facility] [place] Results Order Name Results Value Reference Date Interpretation Comments Source Range Ankle 3 Ankle 3 views EXAM: XR RIGHT ANKLE 3 VIEWS 09/04 - [facility] views DX - [place] EXAM: XR RIGHT FOOT 3 VIEWS This report was dictated by a Finished Yarn Examiner/Fellow. I have personally reviewed the images as well as the Resident's interpretation and agree with the findings. Read by: Karri Olivarez MD Resident: Karri Olivarez MD Dictated Date/time: 09/05/15 08:10 DATE: 09/05/2015 0748 hours Electronically Signed by: Maddi Block 09/05/15 14:35 FINAL REPORT INDICATION: Pain. 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 COMPARISON: X-ray right ankle 3 views 05/09/2015 0945 hours TECHNIQUE: Nonweightbearing AP, lateral and oblique radiographs of the right ankle FINDINGS: The overlying fiberglass cast obscures fine osseous and soft tissue detail. 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 The ankle mortise is congruent. No new or superimposed acute osseous or soft tissue abnormality is identified. IMPRESSION: Cast in place with improved appearance of the previously seen equinovarus status post reconstruction. Foot series Foot series EXAM: XR RIGHT ANKLE 3 VIEWS 09/04 - [facility] DX - [place] EXAM: XR RIGHT FOOT 3 VIEWS This report was dictated by a Finished Yarn Examiner/Fellow. I have personally reviewed the images as well as the Resident's interpretation and agree with the findings. Read by: Karri Olivarez MD Resident: Karri Olivarez MD Dictated Date/time: 09/05/15 08:10 DATE: 09/05/2015 0748 hours Electronically Signed by: Maddi Block 09/05/15 14:35 FINAL REPORT INDICATION: Pain. 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 COMPARISON: X-ray right ankle 3 views 05/09/2015 0945 hours TECHNIQUE: Nonweightbearing AP, lateral and oblique radiographs of the right ankle FINDINGS: The overlying fiberglass cast obscures fine osseous and soft tissue detail. 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 The ankle mortise is congruent. No new or superimposed acute osseous or soft tissue abnormality is identified. IMPRESSION: Cast in place with improved appearance of the previously seen equinovarus status post reconstruction. CHEM PANEL eGFR 123 07/22 Result Comment: The eGFR is calculated using the CKD-EPI formula. In most young, healthy individuals the eGFR will be >90 mL/ min/1.73m2. The eGFR declines with age. An eGFR of 60-89 may be normal in [place] mL/min/1.7 /2015 some populations, particularly the elderly, for whom the CKD-EPI formula has not been extensively validated. Use of the eGFR is not recommended in the following populations: [place] 3m2 Individuals with unstable creatinine concentrations, including patients and those with serious co-morbid conditions. Patients with extremes in muscle mass or diet. The data above are obtained from the National Kidney Disease Education Program (NKDEP) which additionally recommends that when the eGFR is used in patients with extremes of body mass index for purposes of drug dosing, the eGFR should be multiplied by the estimated BMI. CHEM PANEL Glucose Lvl 80 mg/dL 70 - 99 07/22 [facility] CHEM PANEL Creatinine 0.55 mg/dL 0.50 - 07/22 [place] Lvl 1.40 [facility] CHEM PANEL BUN 8 mg/dL 7 - 07/22 [facility] CHEM PANEL CO2 28 meq/L 24 - 32 07/22 [facility] CHEM PANEL Calcium Lvl 8.7 mg/dL 8.5 - 10.5 07/22 [facility] CHEM PANEL AGAP 11.6 meq/L 10.0 - 07/22 [place] . [facility] CHEM PANEL Chloride Lvl 95 meq/L 95 - 109 07/22 [facility] CHEM PANEL Sodium Lvl 130 meq/L 135 - 145 07/22 [facility] CHEM PANEL Potassium Lvl 4.6 meq/L 3.5 - 5.1 07/22 [facility] ELECTROLYTE CO2 21 meq/L 24 - 32 05/24 [facility] [address] ELECTROLYTE Chloride Lvl 99 meq/L 95 - 109 05/24 [facility] ELECTROLYTE Sodium Lvl 131 meq/L 135 - 145 05/24 [facility] ELECTROLYTE Potassium Lvl 4.7 meq/L 3.5 - 5.1 05/24 [facility] 2015 [facility] ELECTROLYTE AGAP 15.7 meq/L 10.0 - 05/24 [facility] . [facility] ELECTROLYTE eGFR 122 05/24 Result Comment: The eGFR is calculated using the CKD-EPI formula. In most young, healthy individuals the eGFR will be > 90 mL/min/1.73m2. The eGFR declines with age. An eGFR of 60-89 may be normal in [facility] mL/min/1. some populations, particularly the elderly, for whom the CKD-EPI formula has not been extensively validated. Use of the eGFR is not recommended in the following populations: [address] Individuals with unstable creatinine concentrations, including patients and those with serious co-morbid conditions. Patients with extremes in muscle mass or diet. The data above are obtained from the National Kidney Disease Education Program (NKDEP) which additionally recommends that when the eGFR is used in patients with extremes of body mass index for purposes of drug dosing, the eGFR should be multiplied by the estimated BMI. ELECTROLYTE Calcium Lvl 8.8 mg/dL 8.5 - 10.5 05/24 [facility]2015 [facility] ELECTROLYTE Creatinine 0.56 mg/dL 0.50 - 05/24 [facility] Lvl 1.40 /2015 [facility] ELECTROLYTE BUN 9 mg/dL 7 - 22 05/24 [facility]2015 [facility] ELECTROLYTE Glucose Lvl 72 mg/dL 70 - 99 05/[address] Hand 3 Hand 3 views RIGHT HAND, 3 views. 05/14 - [facility] views DX DX DATE: 05/14/2015 Read by: Reva Molina MD Dictated Date/time: 05/14/15 10:04 Electronically Signed by: Reva Molina MD 05/14/15 10:12 FINAL REPORT CLINICAL INDICATION: Pain. FINDINGS: Frontal, oblique, and lateral views of the right hand are obtained and submitted for interpretation. No prior study is available for comparison. The right hand and wrist are fixed in radiocarpal hyperflexion, as well as in metacarpophalangeal and proximal interphalangeal flexion, and thumb interphalangeal hyperflexion. This deformities limit edvin luation of the joint spaces, however no significant dislocation is identified. No erosive lesions or destructive lesion is identified. The bones are diffusely osteopenic. There is moderate swelling about the ankle and at the level of the knuckles. 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 Moderate soft tissue swelling about the wrist and knuckles, without associated erosions. Ankle 3 Ankle 3 views EXAM: RIGHT ANKLE 3 VIEWS 05/09 [facility] OPID views DX DX DATE: May 09, 2015 09:54:00 AM Read by: Dat Duron MD Dictated Date/time: 05/09/15 11:09 Electronically Signed by: Dat Duron MD 05/09/15 11:11 FINAL REPORT INDICATION: M25.571 Pain in right ankle and joints of right foot. ADDITIONAL CLINICAL INFORMATION: Paralysis COMPARISON: None available. TECHNIQUE: AP, lateral and oblique radiographs of the right ankle FINDINGS: The ankle is imaged in extreme plantar flexion and there is internal rotation transverse tarsal joint in keeping with spastic paralysis. Allowing for this unusual positioning, no fracture, dis location or other acute bony abnormality is identified. The ankle mortise is congruent. No soft tissue abnormality is identified. IMPRESSION: 1. 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 2. No acute traumatic abnormality or significant arthritis. ELECTROLYTE AGAP 13.0 meq/L 10.0 - 02/20 [facility] . ELECTROLYTE eGFR 112 02/20 1Result Comment: The eGFR is calculated using the CKD-EPI formula. In most young, healthy individuals the eGFR will be > 90 mL/min/1.73m2. The eGFR declines with age. An eGFR of 60-89 may be normal in [facility] mL/min/1.7 some populations, particularly the elderly, for whom the CKD-EPI formula has not been extensively validated. Use of the eGFR is not recommended in the following populations: 3m2 Individuals with unstable creatinine concentrations, including patients and those with serious co-morbid conditions. Patients with extremes in muscle mass or diet. The data above are obtained from the National Kidney Disease Education Program (NKDEP) which additionally recommends that when the eGFR is used in patients with extremes of body mass index for purposes of drug dosing, the eGFR should be multiplied by the estimated BMI. ELECTROLYTE CO2 27 meq/L 24 - 32 02/20 [facility] ELECTROLYTE Calcium Lvl 9.5 mg/dL 8.5 - 10.5 02/20 [facility] ELECTROLYTE Chloride Lvl 103 meq/L 95 - 109 02/20 [facility] ELECTROLYTE BUN 13 mg/dL 7 - 22 02/20 [facility] ELECTROLYTE Sodium Lvl 139 meq/L 135 - 145 02/20 [facility] ELECTROLYTE Creatinine 0.7 mg/dL 0.5 - 1.4 02/20 [facility] Lvl ELECTROLYTE Potassium Lvl 4.0 meq/L 3.5 - 5.1 02/20 [facility] ELECTROLYTE Glucose Lvl 87 mg/dL 70 - 99 02/20 4Interpretive Data: Adult reference range values reflect the clinical guidelines TIR of the [place] [employer]. HEMATOLOGY MPV 9.4 fL 7.4 - 10.4 02/20 [facility] HEMATOLOGY Platelet 263 K/CMM 133 - 450 02/20 [facility] HEMATOLOGY RDW 12.6 % 11.5 - 02/20 [facility] 14.5 /2014 HEMATOLOGY MCHC 33.9 g/dL 32.0 - 02/20 [facility] 36.0 /2013 HEMATOLOGY MCH 30.1 pg 27.0 - 02/20 [facility] 31.0 HEMATOLOGY MCV 88.9 fL 80.0 - 02/20 [facility] 94.0 HEMATOLOGY Hct 27.5 % 42.0 - 02/20 [facility] 54.0 HEMATOLOGY Hgb 9.3 g/dL 14.0 - 02/20 [facility] 18.0 HEMATOLOGY RBC 3.09 M/CMM 4.70 - 02/20 [facility] 6.10 HEMATOLOGY WBC 4.9 K/CMM 3.7 - 10.4 02/20 [facility] HEMATOLOGY Segs-Bands # 2.4 K/CMM 1.5 - 8.1 02/20 [facility] HEMATOLOGY Lymphocytes # 1.8 K/CMM 1.0 - 5.5 02/20 [facility] HEMATOLOGY Basophils # 0.0 K/CMM 0.0 - 0.2 02/20 [facility] HEMATOLOGY Monocytes # 0.5 K/CMM 0.0 - 0.8 02/20 [facility] HEMATOLOGY Eosinophils # 0.2 K/CMM 0.0 - 0.5 02/20 [facility] HEMATOLOGY Eosinophils 3.1 % 0.0 - 4.0 02/20 [facility] HEMATOLOGY Basophils 0.4 % 0.0 - 1.0 02/20 [facility] HEMATOLOGY Lymphocytes 37.2 % 20.0 - 02/20 [facility] 40.0 HEMATOLOGY Monocytes 11.2 % 2.0 - 12.0 02/20 [facility] HEMATOLOGY Segs 48.1 % 45.0 - 02/20 [facility] 75.0 URINE AND UA Leuk Est Negative Negative 02/15 [facility] STOOL (02/15/14 6:01 AM) URINE AND UA Nitrite Negative Negative 02/15 [facility] (02/15/14 6:01 AM) URINE AND UA pH 8.0 5.0 - 8.0 02/15 [facility] URINE AND UA Glucose Negative Negative 02/15 [facility] mg/dL mg/dL URINE AND UA Protein Negative Negative 02/15 [facility] mg/dL mg/dL URINE AND UA Turbidity Slight Cloudy Clear 02/15 [facility] (02/15/14 6:01 AM) URINE AND UA Spec Grav 1.010 <=1.030 02/15 [facility] URINE AND UA Ketones Negative Negative 02/15 [facility] mg/dL mg/dL URINE AND UA Color Yellow Yellow 02/15 [facility] *NA* (02/15/14 6:01 AM) URINE AND UA Bili Negative Negative 02/15 [facility] *NA* (02/15/14 6:01 AM) URINE AND UA Blood Negative Negative 02/15 [facility] (02/15/14 6:01 AM) URINE AND UA 0.2 EU/dL 0.1 - 1.0 02/15 [facility] Urobilinogen URINE AND UA Amorph Few /HPF None Seen 02/15 [facility] Fernanda /HPF URINE AND Micro? Performed 02/15 [facility] (02/15/14 6:01 AM) URINE AND UA Mucus None Seen None Seen 02/15 [facility] (02/15/14 6:01 AM) URINE AND UA Bacteria Few /HPF None Seen 02/15 [facility] /HPF URINE AND UA Sq Epi Rare /LPF Few /LPF 02/15 [facility] URINE AND UA WBC 0-2 /HPF None Seen 02/15 [facility] /HPF URINE AND UA RBC None Seen 0 - 2 02/15 [facility] (02/15/14 6:01 AM) CHEM PANEL eGFR 107 02/08 2Result Comment: The eGFR is calculated using the CKD-EPI formula. In most young, healthy individuals the eGFR will be > 90 mL/min/1.73m2. The eGFR declines with age. An eGFR of 60-89 may be normal in [facility] mL/min/1.7 /2013 some populations, particularly the elderly, for whom the CKD-EPI formula has not been extensively validated. Use of the eGFR is not recommended in the following populations: 3m2 Individuals with unstable creatinine concentrations, including patients and those with serious co-morbid conditions. Patients with extremes in muscle mass or diet. The data above are obtained from the National Kidney Disease Education Program (NKDEP) which additionally recommends that when the eGFR is used in patients with extremes of body mass index for purposes of drug dosing, the eGFR should be multiplied by the estimated BMI. CHEM PANEL CO2 30 meq/L 24 - 32 02/08 [facility] CHEM PANEL Calcium Lvl 9.4 mg/dL 8.5 - 10.5 02/08 [facility] CHEM PANEL Chloride Lvl 104 meq/L 95 - 109 02/08 [facility] CHEM PANEL Potassium Lvl 4.2 meq/L 3.5 - 5.1 02/08 [facility] CHEM PANEL Sodium Lvl 141 meq/L 135 - 145 02/08 [facility] CHEM PANEL Creatinine 0.8 mg/dL 0.5 - 1.4 02/08 [facility] Lv CHEM PANEL BUN 15 mg/dL 7 - 22 02/08 [facility] CHEM PANEL Glucose Lvl 84 mg/dL 70 - 99 02/08 5Interpretive Data: Adult reference range values reflect the clinical guidelines of the [place] [employer]. CHEM PANEL AGAP 11.2 meq/L 10.0 - 02/08 [facility] 20.0 HEMATOLOGY MPV 10.0 fL 7.4 - 10.4 02/08 [facility] HEMATOLOGY Platelet 295 K/CMM 133 - 450 02/08 [facility] HEMATOLOGY MCHC 33.7 g/dL 32.0 - 02/08 [facility] 36.0 /2013 HEMATOLOGY MCH 31.0 pg 27.0 - 02/08 [facility] 31.0 HEMATOLOGY RDW 12.8 % 11.5 - 02/08 [facility] 14. HEMATOLOGY MCV 92.2 fL 80.0 - 02/08 [facility] 94.0 /2013 HEMATOLOGY Hct 29.0 % 42.0 - 02/08 [facility] 54.0 HEMATOLOGY RBC 3.15 M/CMM 4.70 - 10 [facility] 6.10 HEMATOLOGY Hgb 9.8 g/dL 14.0 - 02/08 [facility] 18.0 HEMATOLOGY WBC 4.9 K/CMM 3.7 - 10.4 02/08 [facility] HEMATOLOGY Lymphocytes # 1.8 K/CMM 1.0 - 5.5 02/08 [facility] HEMATOLOGY Monocytes # 0.6 K/CMM 0.0 - 0.8 02/08 [facility] HEMATOLOGY Eosinophils # 0.1 K/CMM 0.0 - 0.5 02/08 [facility] HEMATOLOGY Segs-Bands # 2.4 K/CMM 1.5 - 8.1 02/08 [facility] HEMATOLOGY Basophils 0.4 % 0.0 - 1.0 02/08 [facility] HEMATOLOGY Basophils # 0.0 K/CMM 0.0 - 0.2 02/08 [facility] HEMATOLOGY Segs 47.7 % 45.0 - 02/08 [facility] 75.0 HEMATOLOGY Lymphocytes 36.3 % 20.0 - 02/08 [facility] 40.0 HEMATOLOGY Monocytes 12.8 % 2.0 - 12.0 02/08 [facility] HEMATOLOGY Eosinophils 2.8 % 0.0 - 4.0 02/08 [facility] ANEMIA Ferritin Lvl 38 ng/mL 22 - 275 02/02 [facility] ANEMIA UIBC 319 ug/dl 110 - 370 02/02 [facility] STUDY ANEMIA % [place] Fe 10 % 12 - 57 02/02 [facility] ANEMIA Iron 34 ug/dl 45 - 160 02/02 [facility] ANEMIA TIBC 353 ug/dl 228 - 428 02/02 [facility] CHEM PANEL eGFR 102 02/02 3Result Comment: The eGFR is calculated using the CKD-EPI formula. In most young, healthy individuals the eGFR will be > 90 mL/min/1.73m2. The eGFR declines with age. An eGFR of 60-89 may be normal in R mL/min/1. some populations, particularly the elderly, for whom the CKD-EPI formula has not been extensively validated. Use of the eGFR is not recommended in the following populations: 3m2 Individuals with unstable creatinine concentrations, including patients and those with serious co-morbid conditions. Patients with extremes in muscle mass or diet. The data above are obtained from the National Kidney Disease Education Program (NKDEP) which additionally recommends that when the eGFR is used in patients with extremes of body mass index for purposes of drug dosing, the eGFR should be multiplied by the estimated BMI. CHEM PANEL CO2 29 meq/L 24 - 32 02/02 [facility] CHEM PANEL Calcium Lvl 9.5 mg/dL 8.5 - 10.5 02/02 [facility] CHEM PANEL Sodium Lvl 139 meq/L 135 - 145 02/02 [facility] CHEM PANEL Potassium Lvl 4.2 meq/L 3.5 - 5.1 02/02 [facility] CHEM PANEL Chloride Lvl 102 meq/L 95 - 109 02/02 [facility] CHEM PANEL Creatinine 0.9 mg/dL 0.5 - 1.4 02/02 [facility] Lvl CHEM PANEL Glucose Lvl 88 mg/dL 70 - 99 02/02 6Interpretive Data: Adult reference range values reflect the clinical guidelines of the [place] [employer]. CHEM PANEL BUN 17 mg/dL 7 - 22 02/02 [facility] CHEM PANEL AGAP 12.2 meq/L 10.0 - 02/02 [facility] 20.0 HEMATOLOGY Eosinophils # 0.1 K/CMM 0.0 - 0.5 02/02 [facility] HEMATOLOGY Monocytes # 0.6 K/CMM 0.0 - 0.8 02/02 [facility] HEMATOLOGY Basophils 0.6 % 0.0 - 1.0 02/02 [facility] HEMATOLOGY Eosinophils 3.3 % 0.0 - 4.0 02/02 [facility] HEMATOLOGY Lymphocytes # 1.2 K/CMM 1.0 - 5.5 02/02 [facility] HEMATOLOGY Segs-Bands # 2.3 K/CMM 1.5 - 8.1 02/02 [facility] HEMATOLOGY Basophils # 0.0 K/CMM 0.0 - 0.2 02/02 [facility] HEMATOLOGY Monocytes 13.7 % 2.0 - 12.0 02/02 [facility] HEMATOLOGY Lymphocytes 28.7 % 20.0 - 02/02 [facility] 40.0 HEMATOLOGY Segs 53.7 % 45.0 - 02/02 [facility] 75.0 HEMATOLOGY Hct 26.6 % 42.0 - 02/02 [facility] 54.0 HEMATOLOGY MCV 90.0 fL 80.0 - 02/02 [facility] 94.0 HEMATOLOGY WBC 4.2 K/CMM 3.7 - 10.4 10 [facility] HEMATOLOGY MCH 30.3 pg 27.0 - 02/02 [facility] 31.0 HEMATOLOGY MPV 9.8 fL 7.4 - 10.4 02/02 [facility] HEMATOLOGY RBC 2.96 M/CMM 4.70 - 02/02 [facility] 6. HEMATOLOGY Hgb 9.0 g/dL 14.0 - 02/02 [facility] 18.0 HEMATOLOGY Platelet 268 K/CMM 133 - 450 02/02 [facility] HEMATOLOGY RDW 13.3 % 11.5 - 02/02 [facility] 14. HEMATOLOGY MCHC 33.7 g/dL 32.0 - 02/02 [facility] 36.0 URINE AND UA Sperm Occasional None Seen 01/25 [facility] /HPF /HPF URINE AND UA Bacteria Occasional None Seen 01/25 [facility] /HPF /HPF URINE AND UA Sq Epi None Seen Few 01/25 [facility] (01/25/14 6:00 AM) URINE AND Micro? Performed 01/25 [facility] (01/25/14 6:00 AM) URINE AND UA RBC 0-2 /HPF 0 - 2 01/25 [facility] URINE AND UA WBC 3-5 /HPF None Seen 01/25 [facility] /HPF URINE AND UA Leuk Est Negative Negative 01/25 [facility] (01/25/14 6:00 AM) URINE AND UA Glucose Negative Negative 01/25 [facility] (01/25/14 6:00 AM) URINE AND UA Blood Negative Negative 01/25 [facility] (01/25/14 6:00 AM) URINE AND UA 0.2 EU/dL 0.1 - 1.0 01/25 [facility] Urobilinogen URINE AND UA Nitrite Positive Negative 01/25 [facility] *ABN* (01/25/14 6:00 AM) URINE AND UA Ketones Negative Negative 01/25 [facility] *NA* (01/25/14 6:00 AM) URINE AND UA Bili Negative Negative 01/25 [facility] *NA* (01/25/14 6:00 AM) URINE AND UA Turbidity Slight Cloudy Clear 01/25 [facility] (01/25/14 6:00 AM) URINE AND UA Color Yellow Yellow 01/25 [facility] *NA* (01/25/14 6:00 AM) URINE AND UA Protein Negative Negative 01/25 (01/25/14 6:00 AM) URINE AND UA pH 7.0 5.0 - 8.0 01/25 [facility]A Spec Grav 1.015 <=1.030 01/25 [facility] CHEM PANEL Bili Total 0.2 mg/dL 0.2 - 1.3 01/25 [facility] CHEM PANEL Alk Phos 152 unit/L 39 - 136 01/25 CHEM PANEL AST 21 unit/L 0 - 37 01/25 CHEM PANEL ALT 44 unit/L 0 - 65 01/25 CHEM PANEL Albumin Lvl 3.1 g/dL 3.5 - 5.0 01/25 CHEM PANEL Total Protein 6.4 g/dL 6.4 - 8.4 01/25 CHEM PANEL A/G Ratio 0.9 0.7 - 1.6 01/25 CHEM PANEL Globulin 3.3 g/dL 2.0 - 4.0 01/25 CHEM PANEL B/C Ratio 22 6 - 25 01/25 CHEM PANEL Phosphorus 4.4 mg/dL 2.5 - 4.5 01/25 CHEM PANEL Magnesium Lvl 1.8 mg/dL 1.8 - 2.4 01/25 HEMATOLOGY PT 13.6 s 12.0 - 01/25 [facility] 14.7 HEMATOLOGY INR 1.04 0.85 - 01/25 7Interpretive Data: RECOMMENDED RANGES FOR PROTIME INR: [facility] 1. 2.0-3.0 for most medical and surgical thromboembolic states. 2.5-3.5 for artificial heart valves and recurrent embolism. INR SHOULD BE USED ONLY FOR PATIENTS ON STABLE ANTICOAGULANT THERAPY. HEMATOLOGY PTT 31.7 s 22.9 - 01/25 8Interpretive [facility] 35.8 /2014 Data: Heparin Therapeutic Range: 57 - 92 Seconds IMMUNOLOGY Prealbumin 28.4 mg/dL 18.0 - 01/25 [facility] 45.0 LIPIDS CHD Risk 3.26 4.00 - 01/25 [facility] 7.30 LIPIDS VLDL 28 01/25 [facility] LIPIDS LDL 92 mg/dL <=99 mg/dL 01/25 [facility] (Calculated) LIPIDS HDL 53 mg/dL >=61 mg/dL 01/25 [facility] LIPIDS Chol 173 mg/dL <=199 01/25 [facility] mg/dL LIPIDS Trig 140 mg/dL <=149 01/25 [facility] mg/dL THYROID TSH 2.950 0.360 - 01/25 [facility] uIU/mL 3.740 THYROID T4 Free 0.79 ng/dL 0.76 - 01/25 [facility] PANEL 1.46 SPECIAL Hgb A1C <3.5 % <=5.6 % 01/25 [facility] CHEMISTRY IMMUNOLOGY Prealbumin 15.3 mg/dL 18.0 - 12/27 [facility] 45. [facility] IMMUNOLOGY C-REACTIVE 28.5 mg/L <=2.9 mg/L 12/27 [facility] CHEM PANEL eGFR 130 12/26 1Result Comment: The eGFR is calculated using the CKD-EPI formula. In most young, healthy individuals the eGFR will be > 90 mL/min/1.73m2. The eGFR declines with age. An eGFR of 60-89 may be normal in [facility] mL/min/1. some populations, particularly the elderly, for whom the CKD-EPI formula has not been extensively validated. Use of the eGFR is not recommended in the following populations: [address] Individuals with unstable creatinine concentrations, including patients and those with serious co-morbid conditions. Patients with extremes in muscle mass or diet. The data above are obtained from the National Kidney Disease Education Program (NKDEP) which additionally recommends that when the eGFR is used in patients with extremes of body mass index for purposes of drug dosing, the eGFR should be multiplied by the estimated BMI. CHEM PANEL Potassium Lvl 3.6 meq/L 3.5 - 5.1 12/26 [facility] CHEM PANEL Sodium Lvl 139 meq/L 135 - 145 12/26 [facility] CHEM PANEL CO2 28 meq/L 24 - 32 12/26 [facility] CHEM PANEL Chloride Lvl 102 meq/L 95 - 109 12/26 [facility] CHEM PANEL Calcium Lvl 8.5 mg/dL 8.5 - 10.5 12/26 [facility] CHEM PANEL Glucose Lvl 95 mg/dL 70 - 99 12/26 4Interpretive Data: Adult reference range values reflect the clinical guidelines of the [place] [employer]. [facility] CHEM PANEL Creatinine 0.5 mg/dL 0.5 - 1.4 12/26 [facility] CHEM PANEL BUN 6 mg/dL 7 - 22 12/26 [facility] CHEM PANEL AGAP 12.6 meq/L 10.0 - 12/26 . [facility] CHEM PANEL Phosphorus 3.2 mg/dL 2.5 - 4.5 12/26 [facility] CHEM PANEL Magnesium Lvl 1.7 mg/dL 1.8 - 2.4 12/26 [facility] HEMATOLOGY Eosinophils # 0.4 K/CMM 0.0 - 0.5 12/26 [facility] HEMATOLOGY Lymphocytes # 1.2 K/CMM 1.0 - 5.5 12/26 [facility] HEMATOLOGY Basophils # 0.1 K/CMM 0.0 - 0.2 12/26 [facility] HEMATOLOGY Monocytes # 0.9 K/CMM 0.0 - 0.8 12/26 [facility] HEMATOLOGY Segs-Bands # 5.4 K/CMM 1.5 - 8.1 12/26 [facility] HEMATOLOGY Basophils 0.7 % 0.0 - 1.0 12/26 [facility] HEMATOLOGY Eosinophils 4.6 % 0.0 - 4.0 12/26 [facility] HEMATOLOGY Monocytes 11.7 % 2.0 - 12.0 12/26 [facility] HEMATOLOGY Lymphocytes 14.7 % 20.0 - 12/26 40.0 [facility] HEMATOLOGY Segs 68.3 % 45.0 - 12/26 75.0 [facility] HEMATOLOGY MPV 7.9 fL 7.4 - 10.4 12/26 [facility] HEMATOLOGY Hgb 8.0 g/dL 14.0 - 12/26 18.0 [facility] HEMATOLOGY RBC 2.58 M/CMM 4.70 - 12/26 6.10 [facility] HEMATOLOGY WBC 7.8 K/CMM 3.7 - 10.4 12/26 [facility] HEMATOLOGY MCH 31.2 pg 27.0 - 12/26 31.0 [facility] HEMATOLOGY MCV 92.3 fL 80.0 - 12/26 [place] 94.0 [facility] HEMATOLOGY Hct 23.8 % 42.0 - 12/26 54.0 [facility] HEMATOLOGY Platelet 455 K/CMM 133 - 450 12/26 [facility] HEMATOLOGY RDW 13.3 % 11.5 - 12/26 14. [facility] HEMATOLOGY MCHC 33.8 g/dL 32.0 - 12/26 36.0 [facility] CHEM PANEL Phosphorus 3.6 mg/dL 2.5 - 4.5 12/25 [facility] CHEM PANEL Magnesium Lvl 2.0 mg/dL 1.8 - 2.4 12/25 [facility] CHEM PANEL Phosphorus 2.9 mg/dL 2.5 - 4.5 12/24 [facility] CHEM PANEL eGFR 121 12/24 2Result Comment: The eGFR is calculated using the CKD-EPI formula. In most young, healthy individuals the eGFR will be > 90 mL/min/1.73m2. The eGFR declines with age. An eGFR of 60-89 may be normal in [facility] mL/min/1. some populations, particularly the elderly, for whom the CKD-EPI formula has not been extensively validated. Use of the eGFR is not recommended in the following populations: [place] [address] [facility] Individuals with unstable creatinine concentrations, including patients and those with serious co-morbid conditions. Patients with extremes in muscle mass or diet. The data above are obtained from the National Kidney Disease Education Program (NKDEP) which additionally recommends that when the eGFR is used in patients with extremes of body mass index for purposes of drug dosing, the eGFR should be multiplied by the estimated BMI. CHEM PANEL Glucose Lvl 80 mg/dL 70 - 99 12/24 5Interpretive Data: Adult reference range values reflect the clinical guidelines of the [place] [employer]. [facility] CHEM PANEL BUN 9 mg/dL 7 - 22 12/24 [facility] CHEM PANEL Potassium Lvl 3.5 meq/L 3.5 - 5.1 12/24 [facility] CHEM PANEL Chloride Lvl 108 meq/L 95 - 109 12/24 [facility] CHEM PANEL CO2 25 meq/L 24 - 32 12/24 [facility] CHEM PANEL Creatinine 0.6 mg/dL 0.5 - 1.4 12/24 [facility] CHEM PANEL Sodium Lvl 145 meq/L 135 - 145 12/24 [facility] CHEM PANEL AGAP 15.5 meq/L 10.0 - 12/24 20. [facility] CHEM PANEL Calcium Lvl 8.7 mg/dL 8.5 - 10.5 12/24 [facility] CHEM PANEL Magnesium Lvl 1.7 mg/dL 1.8 - 2.4 12/24 [facility] HEMATOLOGY Eosinophils # 0.3 K/CMM 0.0 - 0.5 12/24 [facility] HEMATOLOGY Lymphocytes # 1.2 K/CMM 1.0 - 5.5 12/24 [facility] HEMATOLOGY Monocytes # 1.0 K/CMM 0.0 - 0.8 12/24 [facility] HEMATOLOGY Basophils 0.4 % 0.0 - 1.0 12/24 [facility] HEMATOLOGY Eosinophils 2.7 % 0.0 - 4.0 12/24 [facility] HEMATOLOGY Segs-Bands # 8.8 K/CMM 1.5 - 8.1 12/24 [facility] HEMATOLOGY Segs 78.1 % 45.0 - 12/24 75.0 [facility] HEMATOLOGY Monocytes 8.5 % 2.0 - 12.0 12/24 [facility] HEMATOLOGY Lymphocytes 10.3 % 20.0 - 12/24 40.0 [facility] HEMATOLOGY MCV 94.1 fL 80.0 - 12/24 94.0 [facility] HEMATOLOGY Hct 24.4 % 42.0 - 12/24 [place] 54.0 [facility] HEMATOLOGY Hgb 8.2 g/dL 14.0 - 12/24 [place] 18.0 [facility] HEMATOLOGY WBC 11.3 K/CMM 3.7 - 10.4 12/24 [facility] HEMATOLOGY RBC 2.59 M/CMM 4.70 - 12/24 [place] 6.10 [facility] HEMATOLOGY MPV 7.5 fL 7.4 - 10.4 12/24 [facility] HEMATOLOGY Platelet 488 K/CMM 133 - 450 12/24 [facility] HEMATOLOGY RDW 14.2 % 11.5 - 12/24 [place] 14.5 [facility] HEMATOLOGY MCHC 33.8 g/dL 32.0 - 12/24 [place] 36.0 [facility] HEMATOLOGY MCH 31.8 pg 27.0 - 12/24 [place] 31.0 [facility] CARDIAC Troponin-T null 0.000 - 12/23 [facility] ENZYMES 0.100 [facility] CARDIAC Troponin-I null 0.00 - 12/23 [facility] ENZYMES 0.40 [facility] CARDIAC Total CK 509 unit/L 12 - 191 12/23 [place] ENZYMES [facility] CARDIAC CK MB Index 0.5 0.0 - 2.5 12/23 [facility] ENZYMES [facility] CARDIAC CK MB 2.3 ng/mL 0.5 - 3.6 12/23 [place] [facility] ELECTROLYTE AGAP 16.1 meq/L 10.0 - 12/23 [facility] S 20.0 [facility] ELECTROLYTE eGFR 121 12/23 3Result Comment: The eGFR is calculated using the CKD-EPI formula. In most young, healthy individuals the eGFR will be > 90 mL/min/1.73m2. The eGFR declines with age. An eGFR of 60-89 may be normal in [facility] S mL/min/1.7 some populations, particularly the elderly, for whom the CKD-EPI formula has not been extensively validated. Use of the eGFR is not recommended in the following populations: [place] [address] [facility] Individuals with unstable creatinine concentrations, including patients and those with serious co-morbid conditions. Patients with extremes in muscle mass or diet. The data above are obtained from the National Kidney Disease Education Program (NKDEP) which additionally recommends that when the eGFR is used in patients with extremes of body mass index for purposes of drug dosing, the eGFR should be multiplied by the estimated BMI. ELECTROLYTE Glucose Lvl 118 mg/dL 70 - 99 12/23 6Interpretive Data: Adult reference range values reflect the clinical guidelines of the [place] [employer]. [facility] ELECTROLYTE BUN 10 mg/dL 7 - 12/23 [facility] ELECTROLYTE Creatinine 0.6 mg/dL 0.5 - 1.4 12/23 [facility] Lvl [facility] ELECTROLYTE Chloride Lvl 109 meq/L 95 - 109 12/23 [facility] ELECTROLYTE Calcium Lvl 8.3 mg/dL 8.5 - 10.5 12/23 [facility] ELECTROLYTE CO2 22 meq/L 24 - 32 12/23 [facility] ELECTROLYTE Sodium Lvl 143 meq/L 135 - 145 12/23 [facility] ELECTROLYTE Potassium Lvl 4.1 meq/L 3.5 - 5.1 12/23 [facility] HEMATOLOGY Angle 82 degrees 64 - 80 12/23 [facility] HEMATOLOGY K-time 0.8 min 0.6 - 2.3 12/23 [facility] HEMATOLOGY Max Amp 78 mm 52 - 71 12/23 [facility] HEMATOLOGY G-value 17.4 K 5.0 - 11.6 12/23 [facility] d/ [facility] HEMATOLOGY Estimated % 1.2 % 0.0 - 7.5 12/23 [facility] HEMATOLOGY Rapid TEG Citrated 12/23 [facility] Sample Type [facility] HEMATOLOGY ACT (TEG) 128 s 86 - 118 12/23 [facility] HEMATOLOGY R-time 0.8 min 0.4 - 0.7 12/23 [facility] HEMATOLOGY [place] 0.8 min 12/23 [facility] HEMATOLOGY MPV 7.2 fL 7.4 - 10.4 12/23 [facility] HEMATOLOGY Hct 22.8 % 42.0 - 12/23 54.0 [facility] HEMATOLOGY MCHC 33.7 g/dL 32.0 - 12/23 [facility] 36.0 [facility] HEMATOLOGY RDW 13.9 % 11.5 - 12/23 14. [facility] HEMATOLOGY MCV 93.6 fL 80.0 - 12/23 [facility] 94.0 /2013 [facility] HEMATOLOGY MCH 31.5 pg 27.0 - 12/23 31.0 /2013 [facility] HEMATOLOGY Platelet 543 K/CMM 133 - 450 12/23 [facility] HEMATOLOGY Hgb 7.7 g/dL 14.0 - 12/23 18.0 /2013 [facility] HEMATOLOGY RBC 2.44 M/CMM 4.70 - 12/23 6.10 /2013 [facility] HEMATOLOGY WBC 15.1 K/CMM 3.7 - 10.4 12/23 [facility] HEMATOLOGY Lymphocytes 5.3 % 20.0 - 12/23 [facility] 40.0 /2013 [facility] HEMATOLOGY Segs 87.4 % 45.0 - 12/23 [facility] 75.0 /2013 [facility] HEMATOLOGY Lymphocytes # 0.8 K/CMM 1.0 - 5.5 12/23 [facility] HEMATOLOGY Eosinophils # 0.1 K/CMM 0.0 - 0.5 12/23 [facility] HEMATOLOGY Segs-Bands # 13.2 K/CMM 1.5 - 8.1 12/23 [facility] HEMATOLOGY Monocytes 6.3 % 2.0 - 12.0 12/23 [facility] HEMATOLOGY Basophils 0.3 % 0.0 - 1.0 12/23 [facility] HEMATOLOGY Monocytes # 0.9 K/CMM 0.0 - 0.8 12/23 [facility] HEMATOLOGY Eosinophils 0.7 % 0.0 - 4.0 12/23 [facility] BLOOD BANK ABO/Rh B NEG 12/23 [facility] BLOOD BANK Antibody Scrn Negative 12/23 [facility] (12/23/13 8:00 AM) [facility] CHEM PANEL AST 59 unit/L 0 - 37 12/21 [facility] CHEM PANEL Total Protein 6.0 g/dL 6.4 - 8.4 12/21 [facility] CHEM PANEL Albumin Lvl 2.7 g/dL 3.5 - 5.0 12/21 [facility] CHEM PANEL ALT 60 unit/L 0 - 65 12/21 [facility] CHEM PANEL Alk Phos 179 unit/L 39 - 136 12/21 [facility] CHEM PANEL Bili Total 0.7 mg/dL 0.2 - 1.3 12/21 [facility] CHEM PANEL A/G Ratio 0.8 0.7 - 1.6 12/21 [facility] CHEM PANEL Globulin 3.3 g/dL 2.0 - 4.0 12/21 [facility] CHEM PANEL B/C Ratio 20 6 - 25 12/21 [facility] HEMATOLOGY Basophils # 0.1 K/CMM 0.0 - 0.2 12/21 [facility] BLOOD BANK Antibody Scrn Negative 12/20 [facility] (12/20/13 11:10 AM) [place] BLOOD BANK ABO/Rh B NEG 12/20 [facility] HEMATOLOGY Basophils # 0.1 K/CMM 0.0 - 0.2 12/20 [facility] CHEM PANEL ALT 66 unit/L 0 - 65 12/19 [facility] CHEM PANEL AST 39 unit/L 0 - 37 12/19 [facility] CHEM PANEL Total Protein 6.1 g/dL 6.4 - 8.4 12/19 [facility] CHEM PANEL Alk Phos 200 unit/L 39 - 136 12/19 [facility] CHEM PANEL Bili Total 0.6 mg/dL 0.2 - 1.3 12/19 [facility] CHEM PANEL Albumin Lvl 2.7 g/dL 3.5 - 5.0 12/19 [facility] CHEM PANEL Bili Direct 0.1 mg/dL 0.0 - 0.3 12/19 [facility] CHEM PANEL A/G Ratio 0.8 0.7 - 1.6 12/19 [facility] CHEM PANEL Globulin 3.4 g/dL 2.0 - 4.0 12/19 [facility] CHEM PANEL Bili Indirect 0.5 mg/dL 0.0 - 1.0 12/19 [facility] CHEM PANEL Bili Total 0.8 mg/dL 0.2 - 1.3 12/17 [facility] CHEM PANEL B/C Ratio 48 6 - 25 12/17 [facility] CHEM PANEL Total Protein 7.1 g/dL 6.4 - 8.4 12/17 [facility] CHEM PANEL Alk Phos 263 unit/L 39 - 136 12/17 [facility] CHEM PANEL AST 47 unit/L 0 - 37 12/17 [facility] CHEM PANEL ALT 107 unit/L 0 - 65 12/17 [facility] CHEM PANEL Albumin Lvl 2.9 g/dL 3.5 - 5.0 12/17 [facility] CHEM PANEL Globulin 4.2 g/dL 2.0 - 4.0 12/17 [facility] CHEM PANEL A/G Ratio 0.7 0.7 - 1.6 12/17 [facility] CHEM PANEL B/C Ratio 46 6 - 25 12/17 [facility] PARATHYROID Ca Ion WB 1.09 1.05 - 12/12 [facility] PROFILE mMol/L 1. [facility] PARATHYROID Ca Norm WB 1.10 1.05 - 12/12 [facility] PROFILE mMol/L 1. [facility] PARATHYROID Ca Ion WB 1.13 1.05 - 12/11 [facility] PROFILE mMol/L 1. [facility] PARATHYROID Ca Norm WB 1.16 1.05 - 12/11 [facility] PROFILE mMol/L . [facility] CHEM PANEL VITAMIN B1 121 nMol/L 78 - 185 12/10 7Result Comment: Test Performed at: [facility] (THIAMINE) [facility] WHOLE BLOOD [address] [place] [address] Pastora Basurto MD, PhD ANEMIA Folate Lvl 28.5 ng/mL >=3.0 12/10 [facility] STUDY ng/mL /2013 [facility] ANEMIA Vitamin B12 561 pg/mL 254 - 1320 12/10 [facility] STUDY Lvl /2013 [facility] THYROID TSH 3.090 0.360 - 12/10 [facility] PANEL uIU/mL 3.740 [facility] IMMUNOLOGY Prealbumin 14.8 mg/dL 18.0 - 08 [facility] 45.0 [facility] IMMUNOLOGY C-REACTIVE 236.0 mg/L <=2.9 mg/L 12/10 [facility] PROTEIN [facility] PARATHYROID Ca Norm WB 1.14 1.05 - 12/10 [facility] PROFILE mMol/L 1. [facility] PARATHYROID Ca Ion WB 1.16 1.05 - 12/10 [facility] PROFILE mMol/L 1.25 [facility] IMMUNOLOGY C-REACTIVE 88.6 mg/L <=2.9 mg/L 12/06 [facility] PROTEIN [facility] IMMUNOLOGY Prealbumin 14.9 mg/dL 18.0 - 12/06 [facility] 45.0 [facility] BACTERIAL - MRSA by PCR Positive 12/03 12Interpretive Data: Interpretive Data: The [facility] LightC[employer] MRSA assay is a qualitative test for the direct detection of nasal colonization with methicillin-resistant Staphylococcus aureus (MRSA) to aid [facility] in the prevention and control of MRSA infections in healthcare settings. A positive result does not indicate an infection or require treatment. A negative result does not exclude colonization or infection. Medical *ABN* Center The polymerase chain reaction (PCR) assay detects a proprietary sequence indicative of the integration of the SCCmec cassette into the Staphylococcus aureus chromosome, indicating the presence of MRSA D (12/03/13 4:38 AM) NA. The assay utilizes FDA cleared IVD reagents. Performance characteristics have been verified by the [facility] within the [facility]. The [facility] atory is authorized under the Clinical Laboratory Improvement Amendment of 1988 (CLIA-88) to perform high complexity testing. HEMATOLOGY G-value 7.8 K d/sc 4.5 - 11.0 12/03 [facility] HEMATOLOGY Coag Index 2.2 -3.0-3.0 - 12/03 [facility] 3.0 [facility] HEMATOLOGY Max Amp 60.9 mm 50.0 - 12/03 [facility] 70.0 [facility] HEMATOLOGY Angle 69.6 53.0 - 12/03 [facility] degrees 72.0 [facility] HEMATOLOGY K-time 1.6 min 1.0 - 3.0 12/03 [facility] HEMATOLOGY R-time 3.3 min 5.0 - 10.0 12/03 [facility] HEMATOLOGY TEG Data See Note 10 12/03 10Interpretive Data: Normal ranges are for citrated whole blood with kaolin activator. [facility] (12/03/13 4:38 AM) R TIME: Reflects the degree of anti-coagulation due to LMWH, unfractionated heparin, and coumadin as well as non-specific Center factor deficiencies. K TIME, ALPHA ANGLE, AND MA(MAX AMPLITUDE): Have been associated with the platelet release reaction and fibrin polymer formation. These parameters assess the speed of clot formation and the tensil strength of the clot. Higher levels are associated with hypercoagulable states. G VALUE: Another measure of clot strength. LY30: Percent lysis in 30 Minutes is associated with the degree of fibrinolysis. CI or COAG INDEX: A calculation from the above measured data indicating an overall hyper or hypo coagulability with values above (plus) +3.0 being relatively hypercoagulable and those below (minus) -3.0 being relatively hypocoagulable. These measurements are functional in nature with many variables and require close clinical correlation. Thromboelasography (TEG) is mostly used to monitor significant coagulopathy in trauma patients or surgical patients. It assesses gloabal ( primary and secondary) hemostasis using whole blood and therefo re, not expected to correlate well with conventional coagulation tests. TEG results need to be correlated with clinical evaluation for patient management. HEMATOLOGY TEG Interp Thrombelas 12/03 [facility] tograph [facility] show shortened value of R. This finding is suggestive of enzymatic hypercoagu lation.CPT :07975 HEMATOLOGY Ly30 0.3 % 0.0 - 7.5 12/03 [facility] BLOOD BANK FFP product Product available 12/03 [facility] RESULTS Medical (12/03/13 12:13 AM) [facility] Antibody Scrn Negative 12/03 [facility] (12/02/13 10:59 PM) [facility] ABO/Rh B NEG 12/03 [facility] RESULTS [facility] CHEM PANEL Lactic Acid 2.9 mMol/L 0.5 - 2.2 12/03 [facility] Lvl [facility] HEMATOLOGY Rapid TEG Citrated 12/03 [facility] Sample Type Whole /2013 [facility] Blood [facility] HEMATOLOGY R-time 0.8 min 0.4 - 0.7 12/03 [facility] HEMATOLOGY [place] 0.8 min 12/03 [facility] HEMATOLOGY ACT (TEG) 128 s 86 - 118 12/03 [facility] HEMATOLOGY K-time 1.8 min 0.6 - 2.3 12/03 [facility] HEMATOLOGY G-value 7.2 K d/sc 5.0 - 11.6 12/03 [facility] HEMATOLOGY Max Amp 59 mm 52 - 71 12/03 [facility] HEMATOLOGY Angle 68 degrees 64 - 80 12/03 [facility] HEMATOLOGY Estimated % 0.7 % 0.0 - 7.5 12/03 [facility] HEMATOLOGY RBC Morph Normal 12/03 [facility] (12/02/13 10:55 PM) [facility] HEMATOLOGY Plt Morph Normal 12/03 [facility] (12/02/13 10:55 PM) [facility] HEMATOLOGY Atypical 0.0 % <=0.0 % 12/03 [facility] HEMATOLOGY Bands 1.0 % 0.0 - 11.0 12/03 [facility] TOXICOLOGY Etoh (%) 0.072 % 12/03 8Interpretive Data: Ethanol testing results should be used for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
[2018-09-10 08:36] LABS: Absolute Lymphocytes (CBC) 1.2 K/uL (0.7-4.9); Absolute Monocytes 0.8 K/uL (0.1-1.3); Absolute Neutrophil 3.9 K/uL (1.8-8.0); Basophils % 0.5 % (0-1.3); Eosinophils % 2.4 % (0-4.4); Hematocrit 45.2 % (39.6-49.0); Lymphocytes % 20.1 % (15.3-44.8); MPV 7.6 fL (7.6-11.3); Monocytes % 12.7 % (3.3-12.3)
[2018-09-10] MEDS ORDERED: PROPOFOL 200 MG/20 ML VIAL IV ONE ×2 (08:38→09:25)
[2018-09-10] MEDS ORDERED: FENTANYL CITR 100 MCG/2 ML ONE ×2 (08:38→09:25)
[2018-09-10] MEDS ORDERED: MIDAZOLAM HCL 2 MG/2 ML INJ ONE ×2 (08:39→09:25)
[2018-09-10] MEDS ORDERED: LIDOCAINE 1% MPF 2 ML AMPULE ONE (08:40)
--- NOTE | 2018-09-10 08:40 | RAD REPORT ---
EXAM DESCRIPTION: RAD - Chest Pa And Lat (2 Views) - 09/10/2018 8:30 am CLINICAL HISTORY: PRE-OP Chest pain. COMPARISON: Chest Single View dated 08/27/2015; CHEST SINGLE VIEW dated 09/20/2014; CHEST SINGLE VIEW dated 07/13/2014; CHEST SINGLE VIEW dated 06/22/2014 FINDINGS: The lungs are mildly underinflated with linear atelectasis in the right lung base. No foca l infiltrate is present. The heart is normal in size. No displaced fractures. IMPRESSION: Right lower lobe subsegmental atelectasis.
[2018-09-10] MEDS ORDERED: Ringers Lactate 1,000 ML IV ONE (08:43)
[2018-09-10] MEDS ORDERED: CEFAZOLIN/SWI 1gm 1 GM/10 ML SYR ONE (08:43)
[2018-09-10 08:44] LABS: BUN Blood Urea Nitrogen 9 mg/dL (7-18); Bicarbonate 25 mmol/L (21-32); Glucose Level 80 mg/dL (74-106); Potassium 4.2 mmol/L (3.5-5.1); Sodium Level 135 mmol/L (136-145)
[2018-09-10] MEDS ORDERED: LIDOCAINE 1% MPF 30 ML VIAL ONE (08:47)
[2018-09-10] MEDS ORDERED: BUPIVACAINE 0.5% PF 10 ML VIAL ONE (08:47)
[2018-09-10] MEDS ORDERED: LIDOCAINE 2% MPF 5 ML VIAL ONE (09:25)
[2018-09-10] MEDS ORDERED: ONDANSETRON 4 MG/2 ML VIAL ONE (09:26)
[2018-09-10 12:03] VITALS: BP 107/78; TEMP 97.2; O2SAT 18
--- NOTE | 2018-09-10 14:43 | EKG ---
Test Date: 2018-09-10 Test Time: 08:09:52 General Internist And Physician Leader: ADRI MEASUREMENT RESULTS: Intervals: Rate: 76 MS: 132 QRSD: 72 QT: 370 QTc: 416 [place]: P: 59 MS: 132 QRS: 69 T: 40 INTERPRETIVE STATEMENTS: Normal sinus rhythm Normal ECG Compared to ECG 08/27/2015 02:26:40 Sinus tachycardia no longer present T-wave abnormality no longer present Electronically Signed On 09-10-18 14:41:01 CDT by Gildardo Valerio
--- NOTE | 2018-09-10 20:48 | OP ---
Date of Procedure: 09/10/2018 Surgeon: Cole Rodrigues MD Preoperative Diagnosis: Abscess, right arm. Postoperative Diagnosis: Infected sebaceous cyst, inflamed. Procedure Performed: Wide excision of right arm mass, 6 x 4 cm, to subcutaneous tissue. Estimated Blood Loss: Minimal. Specimen: Pus and cyst. Findings: As above. Anesthesia: General. Complications: None. Disposition: The patient tolerated the procedure in stable condition, taken to Recovery in good gene ral condition. Procedure In Detail: The patient was brought to the OR and placed in supine position. General anest hesia was begun. The patient was prepped and draped in usual sterile fashion. Marcaine 0.5% was inf iltrated locally. The patient had a red inflamed approximately 4 x 4 cm tender, warm, and fluctuant mass. This was excised through the subcutaneous tissue in an ellipse of skin 6 x 4 cm, and appeared to be a sebaceous cyst with a punctum. Entire cyst excised. Cultures done on the pus and cyst sent to Pathology. Wound irrigated. Bleeding controlled with cautery. Flaps created, and then 2-0 chrom ic used to approximate the subcutaneous tissue. The skin left open. Sterile dressing was applied. The patient was awakened and taken to Recovery in good general condition. /MODL Voice ID: [id number] Report ID: [id number]
--- NOTE | 2018-09-10 20:59 | DS ---
Date of Discharge: 09/10/2018 The patient will go to day surgery and home when stable. Disposition: Home. Condition: Stable. Discharge Instructions: Resume home medications and diet. Activity as tolerated. No heavy lifting. Remove outer dressing in 2 days. Shower. Keep wound clean and dry. I will follow up the patient in the intermediate in a week. Tylenol No. 3 one tablet p.o. q.4 p.r.n. pain. Augmentin 875 p.o. q. 12. /LETIL Voice ID: [id number] Report ID: [id number]
== END 2018-09-10 11:30 | disposition home or self-care (01) ==
LOC: OR 07:36
PROVIDERS: ATTEND Surgery
PROC: 0JBD0ZZ Excision of Right Upper Arm Subcutaneous Tissue and Fascia, Open Approach (ICD-10-PCS; principal; 2018-09-10 09:30)
DX: L72.0 Epidermal cyst (principal); L03.113 Cellulitis of right upper limb; F03.90 Unspecified dementia, unspecified severity, without behavioral disturbance, psychotic disturbance, mood disturbance, and anxiety; F41.9 Anxiety disorder, unspecified; F32.9 Major depressive disorder, single episode, unspecified; G81.90 Hemiplegia, unspecified affecting unspecified side; F48.2 Pseudobulbar affect
CPT/HCPCS: 11406; 93005; 87070; 85025; 80048; 36415; 87205; 88304; 87075; 87077; 87186; 71046; J2704; J3010; J2001; J0690; J2405; 88305; J2250

== ENCOUNTER 2019-01-06 12:05 | Inpatient (IN) | payer OTHER ==
--- OUTSIDE RECORDS SUMMARY | 2019-01-06 12:13 | XMS REPORT | Continuity of Care Document ---
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 Dosing Weight 66, kg, PRN Constipation, Start date: 12/17/13 11:43:00Notes: (Same As: Dulcolax, Bisco-Lax) Fleet Enema 133 ml, Route: Inactive [place], Drug Form: 2013 Medical AUSTEN, Dosing Center Weight 66, kg, ONCE, Start date: 12/17/13 8:30:00, Stop date: 12/17/13 8:30:00 Zosyn 3.375 gm, Inactive [facility] Route: IVPB, 2013 Medical Drug form: Center PDR/INJ, ABXQ6H, Dosing Weight 66, kg, Start date: 12/17/13 8:00:00, Duration: 30 day, Stop date: 01/16/14 2:00:00 Iohexol 78 mL, Route: No Longer [place] IVP, Drug Form: Active 2013 Medical SOLN, Dosing Center Weight 66, kg, ONCALL, STAT, Start date: 12/17/13 1:40:00, Duration: 1 doses or times, Stop date: 12/18/13 0:00:00, Weight=60 - 74kg -- "To be infused by Radiology Staff ONLY"Special Instructions: Weight=60 - 74kg -- "To be infused by Radiology Staff ONLY"Notes: (same as:Omnipaque 350). Flagyl 500 mg, 100 mL, No Longer [place] Route: IVPB, 2013 Medical Drug form: INJ, Center ABXQ6H, Dosing Weight 66, kg, Start date: 12/16/13 22:00:00, Duration: 30 day, Stop date: 01/15/14 16:00:00Notes: (Same as: Flagyl) Avoid alcohol. Zosyn 3.375 gm, No Longer [place] Route: IVPB, Active 2013 Medical Drug form: Center PDR/INJ, ABXQ8H, Dosing Weight 66, kg, CrCl >=20 ml/min infuse over 4 hours, Start date: 12/16/13 22:00:00, Stop date: 01/15/14 14:00:00Notes: (Same as: Zosyn) Dosing based on Piperacillin component NS 1,000 mL 1,000 mL, Rate: No Longer Kee 100 ml/hr, Active 2013 Medical Infuse over: 10 Center hr, Route: IV, Dosing Weight 66 kg, Total Volume: 1,000, Start date: 12/16/13 21:47:00, Duration: 30 day, Stop date: 01/15/14 21:46:00 Propranolol 20 mg, Route: No Longer [facility] PEG, Drug form: Active 2013 Medical TAB, Q6H, Center Dosing Weight 66, kg, Start date: 12/16/13 12:00:00, Duration: 30 day, Stop date: 01/15/14 6:00:00Notes: Give with food. (Same as: Inderal) Amantadine 100 mg, 10 mL, No Longer [place] Route: PO, Drug Active 2013 Medical form: [...] Ritalin 5 mg, 1 tab, No Longer [place] Route: PO, Drug Active 2013 Medical form: TAB, Center BID-12-14, Dosing Weight 66, kg, please change time to 8 am and noon, Start date: 12/16/13 8:00:00, Duration: 30 day, Stop date: 01/14/14 13:00:00Notes: (Same as:Ritalin) Acetaminophen 325 1 tab, Route: No Longer [place] MG / Hydrocodone PEG, Drug Form: Active 2013 Medical Bitartrate 5 MG TAB, Dosing Center Oral Tablet [[place] Weight 66, kg, 5/325] Q6H, Start date: 12/15/13 18:00:00, Duration: 30 day, Stop date: 01/14/14 12:00:00Notes: (Same as: [place] 325/5) Do not exceed 4gm/day of acetaminophen. Acetaminophen 325 1 tab, Route: No Longer [place] MG / Hydrocodone PEG, Drug Form: Active 2013 Medical Bitartrate 5 MG TAB, Dosing Center Oral Tablet [[place] Weight 66, kg, 5/325] Q6H, PRN Pain, Start date: 12/15/13 13:46:00, Stop date: 01/14/14 13:45:00Notes: (Same as: [place] 325/5) Do not exceed 4gm/day of acetaminophen. Acetaminophen 325 1 tab, Route: Inactive [place] MG / Hydrocodone PO, Drug Form: 2013 Medical Bitartrate 5 MG TAB, Dosing Center Oral Tablet [[place] Weight 66, kg, 5/325] Q6H, PRN Pain, Start date: 12/15/13 13:45:00, Duration: 30 day, Stop date: 01/14/14 13:44:00 Melatonin 3 mg oral 3 mg, 1 tab, No Longer [facility] tablet Route: PO, Drug Active 2013 Medical Form: TAB, Center Dosing Weight 66, kg, Bedtime, Start date: 12/14/13 21:00:00, Duration: 30 day, Stop date: 01/12/14 21:00:00Notes: (Same as: Melatonin) Non-Formulary Drug Dulcolax Laxative 10 mg, 1 supp, No Longer [facility] Route: RI, Drug Active 2013 Medical form: SUPP, Center Bedtime, Start date: 12/14/13 21:00:00, Duration: 30 day, Stop date: 01/12/14 21:00:00Notes: (Same As: Dulcolax, Bisco-Lax) Levaquin 500 mg, 1 tab, No Longer [facility] Route: PEG, Active 2013 Medical Drug form: TAB, Center [id number], Dosing Weight 66, kg, Start date: 12/14/13 19:00:00, Duration: 30 day, Stop date: 01/12/14 19:00:00 Ritalin 5 mg, 1 tab, No Longer [facility] Route: PO, Drug Active 2013 Medical form: TAB, BID, Center Dosing Weight 66, kg, please change time to 8 am and noon, Start date: 12/14/13 17:00:00, Duration: 30 day, Stop date: 01/13/14 9:00:00Notes: (Same as:Ritalin) sennosides, SHELTER 17.6 mg, 10 mL, No Longer [facility] Route: PO, Drug Active 2013 Medical Form: SYRP, Center Dosing Weight 66, kg, QNoon, Start date: 12/14/13 12:00:00, Duration: 30 day, Stop date: 01/12/14 12:00:00Notes: (Same as: Senokot) Amantadine 50 mg, 5 mL, No Longer [facility] Route: PO, Drug Active 2013 Medical form: SYRP, Center BID, Dosing Weight 66, kg, please change time to 8 am and noon, Start date: 12/14/13 12:00:00, Duration: 30 day, Stop date: 01/13/14 8:00:00Notes: (Same as: Symmetrel) Oxycodone 2.5 mg, 2.5 mL, No Longer [facility] Hydrochloride 5 MG Route: PO, Drug Active [...] Tylenol 325 mg, 1 tab, No Longer [facility] Route: PO, Drug Active 2013 Medical form: TAB, Q4H, Center Dosing Weight 66, kg, PRN Fever, Start date: 12/13/13 4:39:00, Duration: 30 day, Stop date: 01/12/14 4:38:00Notes: Do not exceed 4 gm/day. (Same as: Tylenol) Bromocriptine 0.8 2.5 mg, 1 tab, No Longer [place] MG Oral Tablet Route: PO, Drug Active 2013 Medical form: TAB, Center Q12H, Dosing Weight 66, kg, Start date: 12/12/13 9:00:00, Duration: 30 day, Stop date: 01/10/14 21:00:00Notes: (Same As: [place]) Morphine 2 mg, Route: Inactive [facility] IVP, ONCE, 2013 Medical Dosing Weight Center 66, kg, Start date: 12/12/13 4:10:00, Stop date: 12/12/13 4:10:00 Morphine 2 mg, 1 mL, Inactive [facility] Route: IVP, 2013 Medical Drug form: INJ, Center ONCE, Dosing Weight 66, kg, Start date: 12/11/13 22:39:00, Stop date: 12/11/13 22:39:00Notes: (Same as:MORPhine Sulfate) magnesium sulfate 2 gm, 50 mL, Inactive [facility] Route: IVPB, 2013 Medical Drug form: INJ, Center ONCE, Start date: 12/10/13 4:30:00, Stop date: 12/10/13 4:30:00 Rocuronium 50 mg, 5 mL, Inactive [facility] Route: IV, Drug 2013 Medical form: INJ, Center ONCE, Dosing Weight 66, kg, Start date: 12/09/13 11:40:00, Stop date: 12/09/13 11:40:00Notes: (Same as: Rodolfo) Propofol 10 MG/ML 1,000 mg, 100 No Longer [place] Injectable mL, Rate: Active 2013 Medical Suspension [...] being intubated (unless the nurse is a EXPERIMENTAL FLIGHT TEST MECHANIC). Same as: Diprivan Lidocaine 5 ml, Route: Inactive [place] Hydrochloride 40 MUCOUS MEM, 2013 Medical MG/ML Mucous Drug Form: [place] Membrane Topical SOLN, Dosing Solution Weight 66, kg, ONCE, Start date: 12/09/13 11:15:00, Stop date: 12/09/13 11:15:00Notes: (Same as: Xylocaine) Fentanyl 200 microgram, Inactive [place] 4 mL, Route: 2013 Medical IVP, Drug form: [place] INJ, ONCE, Dosing Weight 66, kg, Start date: 12/09/13 11:15:00, Stop date: 12/09/13 11:15:00Notes: (Same as: Sublimaze) Preservative free. Propofol 10 MG/ML 500 mg, 50 mL, No Longer [place] Injectable Rate: Titrate Active 2013 Medical Suspension [...] being intubated (unless the nurse is a EXPERIMENTAL FLIGHT TEST MECHANIC). Same as: Diprivan Magnesium Sulfate 1 gm, 100 mL, Inactive [place] Route: IVPB, 2013 Medical Drug form: INJ, Center ONCE, Dosing Weight 66, kg, Total dose=2 gm, Start date: 12/07/13 10:55:00, Duration: 1 doses or times, Stop date: 12/07/13 10:55:00 potassium 250 mg, 1 tab, No Longer [place] phosphate-sodium Route: PO, Drug Active 2013 Medical phosphate 250 mg-45 Form: TAB, [place] mg-298 mg oral TID-Before tablet Meals, Start date: 12/06/13 18:00:00, Duration: 30 day, Stop date: 01/05/14 16:30:00Notes: Non-Fomrulary Drug. (Same as: K-Phos) Ancef 2 gm, Route: Inactive [facility] IVPB, ONCE, 2013 Medical Dosing Weight Center 66, kg, Start date: 12/06/13 16:01:00, Duration: 1 doses or times, Stop date: 12/06/13 16:01:00 Dulcolax Laxative 10 mg, 1 supp, No Longer [facility] Route: RI, Drug Active 2013 Medical form: SUPP, Center Daily, Start date: 12/06/13 9:00:00, Duration: 30 day, Stop date: 01/04/14 9:00:00Notes: (Same As: Dulcolax, Bisco-Lax) Neutra-Phos 1 pkt, Route: Inactive [facility] PO, Drug Form: 2013 Medical PDR/REC, Dosing Center Weight 66, kg, TID-Before Meals, Start date: 12/06/13 7:30:00, Duration: 30 day, Stop date: 01/04/14 16:30:00Notes: (Same as: Neutra-Phos) Each 1.25 gm pkt has 250mg phosphorous. Mix w/2.5oz water and stir. Magnesium Sulfate 2 gm, 50 mL, Inactive [facility] Route: IVPB2013 Medical Drug form: INJ, Center ONCE, Dosing Weight 66, kg, Start date: 12/06/13 5:57:00, Duration: 2 hr, Stop date: 12/06/13 5:57:00 Magnesium Sulfate 2 gm, 50 mL, Inactive [facility] Route: IVPB2013 Medical Drug form: INJ, Center ONCE, Dosing Weight 66, kg, Total dose=2 gm, Start date: 12/06/13 3:10:00, Duration: 1 doses or times, Stop date: 12/06/13 3:10:00 Dilantin 100 mg, 2 mL, No Longer [facility] Route: IV, Drug Active 2013 Medical form: INJ, Q8H, Center Start date: 12/05/13 12:00:00, Stop date: 12/08/13 18:15:00Notes: (Same as: Dilantin) Do not infuse greater than 50 mg/min. potassium 500 mg, 2 tab, No Longer [facility] phosphate-sodium Route: NG, Drug Active 2013 Medical phosphate 250 mg-45 Form: TAB, Q6H, Center mg-298 mg oral Start date: tablet 12/05/13 12:00:00, Duration: 3 day, Stop date: 12/08/13 6:00:00Notes: Non-Fomrulary Drug. (Same as: K-Phos) Neutra-Phos 2 pkt, Route: Inactive [facility] NG, Dosing 2013 Medical Weight 66, kg, Center Q6H, Start date: 12/05/13 12:00:00, Duration: 30 day, Stop date: 01/04/14 6:00:00 Lovenox 30 mg, 0.3 mL, No Longer [facility] Route: SUB-Q, Active 2013 Medical Drug form: INJ, Center Q12H, Dosing Weight 66, kg, Priority: NOW, Start date: 12/05/13 11:07:00, Duration: 30 day, Stop date: 02/03/14 4:00:00Notes: (Same as: Lovenox) Potassium Chloride 20 mEq, 15 mL, No Longer [facility] 1.33 MEQ/ML Oral Route: PO, Drug Active 2013 Medical Solution form: LIQ, Center Daily, Dosing Weight 66, kg, Start date: 12/05/13 9:00:00, Duration: 30 day, Stop date: 01/03/14 9:00:00 Aspirin / Calcium 325 mg, 1 tab, No Longer [facility] Carbonate Route: PO, Drug Active 2013 Medical form: TAB, Center Daily, Dosing Weight 66, kg, Start date: 12/05/13 9:00:00, Duration: 30 day, Stop date: 02/02/14 9:00:00Notes: Take with food. Propranolol 15 mg, 1.5 tab, No Longer [facility] Route: PO, Drug Active 2013 Medical form: TAB, Q6H, Center Dosing Weight 66, kg, Start date: 12/04/13 12:00:00, Stop date: 01/03/14 6:00:00Notes: Give with food. (Same as: Inderal) Potassium Chloride 20 mEq, 15 mL, Inactive [facility] 1.33 MEQ/ML Oral Route: PO, Drug 2013 Medical Solution form: LIQ, Center ONCE, Dosing Weight 66, kg, Start date: 12/04/13 10:36:00, Stop date: 12/04/13 10:36:00Notes: (Same as: Potassium Chloride) Haldol 2 mg, 1 tab, No Longer [facility] Route: PO, Drug Active 2013 Medical form: TAB, TID, Center Dosing Weight 66, kg, PRN Agitation, Start date: 12/04/13 10:30:00, Duration: 30 day, Stop date: 01/03/14 10:29:00Notes: (Same as: Haldol) Aspirin / Calcium 325 mg, 1 tab, Inactive [facility] Carbonate Route: NG, Drug 2013 Medical form: TAB, Center Daily, Dosing Weight 66, kg, Start date: 12/04/13 9:00:00, Duration: 30 day, Stop date: 01/02/14 9:00:00Notes: Take with food. Dilantin 300 mg, 3 cap, No Longer [facility] Route: PO, Drug Active 2013 Medical form: ERCAP, Center Bedtime, Dosing Weight 81.818, kg, Start date: 12/03/13 21:00:00, Duration: 30 day, Stop date: 01/01/14 21:00:00Notes: (Same as: Dilantin) Do not open, crush, or chew. Reglan 10 mg, 10 mL, Inactive [facility] Route: NG, Drug 2013 Medical form: SYRP, Center ONCE, Dosing Weight 66, kg, Start date: 12/03/13 17:20:00, Stop date: 12/03/13 17:20:00Notes: (Same as: Reglan) Take 30 min before meals Lyrica 50 mg, 1 cap, No Longer [facility] Route: PO, Drug Active 2013 Medical form: CAP, Q8H, Center Dosing Weight 66, kg, Start date: 12/03/13 16:00:00, Duration: 30 day, Stop date: 01/02/14 8:00:00Notes: Same as Lyrica aspirin 325 mg 325 mg, 1 tab, Inactive [facility] tablet Route: PO, Drug 2013 Medical form: TAB, Center Daily, Dosing Weight 66, kg, Priority: NOW, Start date: 12/03/13 14:50:00, Duration: 30 day, Stop date: 01/02/14 9:00:00Notes: Take with food. Bisacodyl 10 mg, 2 tab, No Longer [place] Route: PO, Drug Active 2013 Medical form: ECTAB, Center Daily, Dosing Weight 81.818, kg, Start date: 12/03/13 9:00:00, Duration: 30 day, Stop date: 01/01/14 9:00:00Notes: (Same As: Dulcolax, Correctol) (Do Not Crush) "Do Not Crush" docusate sodium 100 mg, 1 cap, Inactive [place] Route: PO, Drug 2013 Medical form: CAP, BID, Center Dosing Weight 81.818, kg, Start date: 12/03/13 9:00:00, Duration: 30 day, Stop date: 01/01/14 17:00:00Notes: (Same as: Colace) (Do Not Crush) Celebrex 200 mg, 2 cap, No Longer [place] Route: PO, Drug Active 2013 Medical form: CAP, Center Q12H, Dosing Weight 66, kg, Start date: 12/03/13 9:00:00, Duration: 30 day, Stop date: 01/01/14 21:00:00Notes: NSAID. Please check indication. Not for seizure. (Same As: CeleBREX ) Famotidine 20 mg, 2 mL, No Longer [place] Route: IV, Drug Active 2013 Medical form: INJ, Center Q12H, Dosing Weight 81.818, kg, Start date: 12/03/13 9:00:00, Duration: 30 day, Stop date: 01/01/14 21:00:00Notes: (Same as: Pepcid) Docusate 100 mg, 10 mL, No Longer [place] Route: NG, Drug Active 2013 Medical form: LIQ, Center Q12H, Dosing Weight 66, kg, Start date: 12/03/13 8:58:00, Stop date: 02/01/14 9:00:00Notes: (Same as: Colace) Magnesium Sulfate 4 gm, 100 mL, Inactive [place] Route: IV, Drug 2013 Medical form: INJ, Center ONCE, Dosing Weight 66, kg, Start date: 12/03/13 8:49:00, Stop date: 12/03/13 8:49:00 Tylenol 1,000 mg, 2 No Longer [facility] tab, Route: PO, Active 2013 Medical Drug form: TAB, Center Q6H, Dosing Weight 81.818, kg, Start date: 12/03/13 6:00:00, Duration: 30 day, Stop date: 01/02/14 0:00:00Notes: Max acetaminophen 4000 mg/day (4 gm/day). (Same as: Tylenol Extra Strength) Oxycodone 5 mg, 1 tab, No Longer [facility] Hydrochloride 5 MG Route: PO, Drug Active 2013 Medical Oral Tablet form: TAB, Q6H, Center Dosing Weight 81.818, kg, Start date: 12/03/13 6:00:00, Duration: 30 day, Stop date: 01/02/14 0:00:00Notes: (Same as: Roxicodone) NS 1,000 mL 1,000 mL, Rate: No Longer [facility] 100 ml/hr, Active 2013 Medical Infuse over: 10 Center hr, Route: IV, Dosing Weight 81.818 kg, Total Volume: 1,000, Start date: 12/03/13 4:00:00, Duration: 30 day, Stop date: 01/02/14 3:59:00 Oxycodone 5 mg, 1 tab, No Longer [facility] Hydrochloride 5 MG Route: NG, Drug Active 2013 Medical Oral Tablet form: TAB, Q4H, Center Dosing Weight 81.818, kg, PRN Pain Score 6-10, Start date: 12/03/13 3:43:00, Stop date: 01/02/14 3:42:00Notes: (Same as: Roxicodone) Dextrose 50% 12.5 gm, 25 mL, No Longer [facility] Syringe Route: IVP, Active 2013 Medical Drug Form: INJ, Center Dosing Weight 81.818, kg, PRN, PRN Abnormal Lab Result, Start date: 12/03/13 3:42:00, Duration: 30 day, Stop date: 01/02/14 3:41:00, For FSBG 40mg/dL - 60mg/dLSpecial Instructions: For FSBG 40mg/dL - 60mg/dL Insulin, Regular, 10 unit, 0.1 No Longer [facility] [place] mL, Route: Active 2013 Medical SUB-Q, [...] Tramadol 50 mg, 1 tab, No Longer [facility] Route: PO, Drug Active 2013 Medical form: TAB, Q6H, Center Dosing Weight 81.818, kg, Priority: NOW, Start date: 12/02/13 23:53:00, Duration: 30 day, Stop date: 01/01/14 18:00:00Notes: Not to exceed 400mg/day. (Same As: Ultram) Acetaminophen 1,000 mg, 100 No Longer [place] mL, Route: Active 2013 Medical IVPB, Drug Center form: INJ, Q6H, Dosing Weight 81.818, kg, Priority: NOW, Start date: 12/02/13 23:53:00, Duration: 48 hr, Stop date: 12/04/13 18:00:00Notes: Infuse over 15 minutes Do not exceed 4gm/day of acetaminophen pregabalin 100 mg, 1 cap, No Longer [place] Route: PO, Drug Active 2013 Medical form: CAP, Q8H, Center Dosing Weight 81.818, kg, Priority: NOW, Start date: 12/02/13 23:53:00, Duration: 48 hr, Stop date: 12/04/13 16:00:00Notes: (Same as: Lyrica) celecoxib 200 mg, 2 cap, No Longer [facility] Route: PO, Drug Active 2013 Medical form: CAP, Center Q12H, Dosing Weight 81.818, kg, Priority: NOW, Start date: 12/02/13 23:53:00, Duration: 48 hr, Stop date: 12/04/13 21:00:00Notes: NSAID. Please check indication. Not for seizure. (Same As: CeleBREX ) fosphenytoin 1,000 mg, 20 No Longer [place] mL, Route: Active 2013 Medical IVPB, ONCE, Center Dosing Weight 81.818, kg, Priority: STAT, Start date: 12/02/13 23:47:00, Stop date: 12/02/13 23:47:00, Loading doseSpecial Instructions: Loading doseNotes: (Same as: Cerebyx) Stated mg=mgPE. Refrigerate ANTICONVULSANT* * Do not confuse with celebrex. Propofol 10 MG/ML 1,000 mg, 100 No Longer [place] Injectable mL, Rate: Active 2013 Medical Suspension [...] being intubated (unless the nurse is a EXPERIMENTAL FLIGHT TEST MECHANIC). Same as: Diprivan Cefazolin 2 gm, Route: Inactive [facility] IVPB, ONCE, 2013 Medical Dosing Weight Center 81.818, kg, Priority: STAT, Start date: 12/02/13 23:29:00, Stop date: 12/02/13 23:29:00 iodixanol 100 mL, Route: Inactive 12/03/ [facility] IVP, Drug Form: 2013 Medical SOLN, Dosing Center Weight 81.818, kg, ONCALL, STAT, Start date: 12/02/13 23:09:00, Duration: 1 doses or times, Dose=2.2ml/kg, Max [id number]=[id number] -- "To be infused by Radiology Staff ONLY"Special Instructions: Dose=2.2ml/kg, Max pszp=[id number] -- "To be infused by Radiology Staff ONLY" Saline Flush 0.9% 5 mL, Route: No Longer 12/03/ [facility] IVP, Drug Form: Active 2013 Medical INJ, kg, PRN, Center PRN Line Flush, Administer at least once every 12 hours, Start date: 12/02/13 22:53:00, Duration: 30 day, Stop date: 01/01/14 22:52:00Notes: (Same as: BD Posiflush) Allergies, Adverse Reactions, Alerts Substance Category Reaction Severity Reaction Status Date Comments Source type Reported Thiopental Assertion anphlyatic Drug Active [facility] Sodium allergy [facility] Immunizations Immunization Date Given Site Status Last Comments Source Updated diphtheria/pertus 12/03/2013 Left completed Derrick [facility] sis, acel/tetanus deltoid [facility] adult [facility], [facility], [facility] [place],[facility] Results Order Name Results Value Reference Date Interpretation Comments Source Range CHEM PANEL eGFR 123 07/22 Result Sugar /2015 Comment: The [facility] eGFR is calculated using the CKD-EPI formula. In most young, healthy individuals the eGFR will be >90 mL/min/1.73m2 . The eGFR declines with age. An eGFR of 60-89 may be normal in some populations, particularly the elderly, for whom the CKD-EPI formula has not been extensively validated. Use of the eGFR is not recommended in the following populations:< br/>
Annette viduals with unstable creatinine concentration s, including patients and those with serious co-morbid conditions.<b r/>
Patie nts with extremes in muscle mass or diet.

The data above are obtained from the National Kidney Disease Education Program (NKDEP) which additionally recommends that when the eGFR is used in patients with extremes of body mass index for purposes of drug dosing, the eGFR should be multiplied by the estimated BMI. CHEM PANEL Glucose Lvl 80 70 - 99 07/22 [facility] CHEM PANEL Creatinine 0.55 0.50 - 07/22 [place] Lvl 1.40 [facility] CHEM PANEL BUN 8 7 - 22 07/22 [facility] CHEM PANEL CO2 28 24 - 32 07/22 [facility] CHEM PANEL Calcium Lvl 8.7 8.5 - 10.5 07/22 [facility] CHEM PANEL AGAP 11.6 10.0 - 07/22 Sugar 20.0 [facility] CHEM PANEL Chloride Lvl 95 95 - 109 07/22 [facility] CHEM PANEL Sodium Lvl 130 135 - 145 07/22 [facility] CHEM PANEL Potassium Lvl 4.6 3.5 - 5.1 07/22 [facility] ELECTROLYTE CO2 21 24 - 32 05/24 [facility] S /2016 [facility] ELECTROLYTE Chloride Lvl 99 95 - 109 05/24 [facility] S /2015 [facility] ELECTROLYTE Sodium Lvl 131 135 - 145 05/24 [facility] S /2015 [facility] ELECTROLYTE Potassium Lvl 4.7 3.5 - 5.1 05/24 [facility] S /2015 [facility] ELECTROLYTE AGAP 15.7 10.0 - 05/24 [facility] S . [facility] ELECTROLYTE eGFR 122 05/24 [facility] Comment: The Medical eGFR is Center calculated using the CKD-EPI formula. In most young, healthy individuals the eGFR will be >90 mL/min/1.73m2 . The eGFR declines with age. An eGFR of 60-89 may be normal in some populations, particularly the elderly, for whom the CKD-EPI formula has not been extensively validated. Use of the eGFR is not recommended in the following populations:< br/>
Annette viduals with unstable creatinine concentration s, including patients and those with serious co-morbid conditions.<b r/>
Patie nts with extremes in muscle mass or diet.

The data above are obtained from the National Kidney Disease Education Program (NKDEP) which additionally recommends that when the eGFR is used in patients with extremes of body mass index for purposes of drug dosing, the eGFR should be multiplied by the estimated BMI. ELECTROLYTE Calcium Lvl 8.8 8.5 - 10.5 05/24 [facility] ELECTROLYTE Creatinine 0.56 0.50 - 05/24 [facility] S Lvl 1.40 /2015 [facility] ELECTROLYTE BUN 9 7 - 22 05/24 [facility] ELECTROLYTE Glucose Lvl 72 70 - 99 05/24 [facility] ELECTROLYTE AGAP 13.0 10.0 - 02/20 [facility] S 20.0 ELECTROLYTE eGFR 112 02/20 <sup>1</sup>R [facility] S esult Comment: The eGFR is calculated using the CKD-EPI formula. In most young, healthy individuals the eGFR will be >90 mL/min/1.73m2 . The eGFR declines with age. An eGFR of 60-89 may be normal in some populations, particularly the elderly, for whom the CKD-EPI formula has not been extensively validated. Use of the eGFR is not recommended in the following populations:& lt;br/>
I ndividuals with unstable creatinine concentration s, including patients and those with serious co-morbid conditions.<b r/>
Patie nts with extremes in muscle mass or diet.

The data above are obtained from the National Kidney Disease Education Program (NKDEP) which additionally recommends that when the eGFR is used in patients with extremes of body mass index for purposes of drug dosing, the eGFR should be multiplied by the estimated BMI. ELECTROLYTE CO2 27 24 - 32 02/20 [facility] S ELECTROLYTE Calcium Lvl 9.5 8.5 - 10.5 02/20 [facility] S ELECTROLYTE Chloride Lvl 103 95 - 109 02/20 [facility] S ELECTROLYTE BUN 13 7 - 22 02/20 [facility] S ELECTROLYTE Sodium Lvl 139 135 - 145 02/20 [facility] S /2013 ELECTROLYTE Creatinine 0.7 0.5 - 1.4 02/20 [facility] S Lvl ELECTROLYTE Potassium Lvl 4.0 3.5 - 5.1 02/20 [facility] S ELECTROLYTE Glucose Lvl 87 70 - 99 02/20 <sup>4</sup>I [facility] nterpretive Data: Adult reference range values reflect the clinical guidelines
of the [place] [employer]. HEMATOLOGY MPV 9.4 7.4 - 10.4 02/20 [facility] HEMATOLOGY Platelet 263 133 - 450 02/20 [facility] HEMATOLOGY RDW 12.6 11.5 - 02/20 [facility] 14.5 HEMATOLOGY MCHC 33.9 32.0 - 02/20 [facility] 36.0 HEMATOLOGY MCH 30.1 27.0 - 02/20 [facility] 31.0 HEMATOLOGY MCV 88.9 80.0 - 02/20 [facility] 94.0 HEMATOLOGY Hct 27.5 42.0 - 02/20 [facility] 54.0 HEMATOLOGY Hgb 9.3 14.0 - 02/20 [facility] 18.0 HEMATOLOGY RBC 3.09 4.70 - 02/20 [facility] 6. HEMATOLOGY WBC 4.9 3.7 - 10.4 02/20 [facility] HEMATOLOGY Segs-Bands # 2.4 1.5 - 8.1 02/20 [facility] HEMATOLOGY Lymphocytes # 1.8 1.0 - 5.5 02/20 [facility] HEMATOLOGY Basophils # 0.0 0.0 - 0.2 02/20 [facility] HEMATOLOGY Monocytes # 0.5 0.0 - 0.8 02/20 [facility] HEMATOLOGY Eosinophils # 0.2 0.0 - 0.5 02/20 [facility] HEMATOLOGY Eosinophils 3.1 0.0 - 4.0 02/20 [facility] HEMATOLOGY Basophils 0.4 0.0 - 1.0 02/20 [facility] HEMATOLOGY Lymphocytes 37.2 20.0 - 02/20 [facility] 40.0 HEMATOLOGY Monocytes 11.2 2.0 - 12.0 02/20 [facility] HEMATOLOGY Segs 48.1 45.0 - 02/20 [facility] 75.0 URINE AND UA Leuk Est Negative Negative 02/15 [facility] STOOL (02/15/14 6:01 AM) URINE AND UA Nitrite Negative Negative 02/15 [facility] STOOL (02/15/14 6:01 AM) /2013 URINE AND UA pH 8.0 5.0 - [...] Color Yellow Yellow 02/15 [facility] STOOL *NA* /2013 (02/15/14 6:01 AM) URINE AND UA Bili Negative Negative 02/15 [facility] STOOL *NA* (02/15/14 6:01 AM) URINE AND UA Blood Negative Negative 02/15 [facility] STOOL (02/15/14 6:01 AM) URINE AND UA 0.2 0.1 - 1.0 02/15 [facility] STOOL Urobilinogen [...] 6:01 AM) CHEM PANEL eGFR 107 02/08 <sup>2</sup>R [facility] esult Comment: The eGFR is calculated using the CKD-EPI formula. In most young, healthy individuals the eGFR will be >90 mL/min/1.73m2 . The eGFR declines with age. An eGFR of 60-89 may be normal in some populations, particularly the elderly, for whom the CKD-EPI formula has not been extensively validated. Use of the eGFR is not recommended in the following populations:& lt;br/>
I ndividuals with unstable creatinine concentration s, including patients and those with serious co-morbid conditions.<b r/>
Patie nts with extremes in muscle mass or diet.

The data above are obtained from the National Kidney Disease Education Program (NKDEP) which additionally recommends that when the eGFR is used in patients with extremes of body mass index for purposes of drug dosing, the eGFR should be multiplied by the estimated BMI. CHEM PANEL CO2 30 24 - 32 10 [facility] CHEM PANEL Calcium Lvl 9.4 8.5 - 10.5 02/08 [facility] /2013 CHEM PANEL Chloride Lvl 104 95 - 109 02/08 [facility] /2013 CHEM PANEL Potassium Lvl 4.2 3.5 - 5.1 02/08 [facility] CHEM PANEL Sodium Lvl 141 135 - 145 02/08 [facility] CHEM PANEL Creatinine 0.8 0.5 - 1.4 02/08 [facility] Lvl CHEM PANEL BUN 15 7 - 22 02/08 [facility] /2013 CHEM PANEL Glucose Lvl 84 70 - 99 02/08 <sup>5</sup>I [facility] nterpretive Data: Adult reference range values reflect the clinical guidelines
of the [place] [employer]. CHEM PANEL AGAP 11.2 10.0 - 02/08 [facility] 20.0 /2013 HEMATOLOGY MPV 10.0 7.4 - 10.4 02/08 [facility] HEMATOLOGY Platelet 295 133 - 450 02/08 [facility] /2013 HEMATOLOGY MCHC 33.7 32.0 - 10 [facility] 36.0 /2013 HEMATOLOGY MCH 31.0 27.0 - 10 [facility] 31.0 /2013 HEMATOLOGY RDW 12.8 11.5 - 02/08 [facility] 14.5 HEMATOLOGY MCV 92.2 80.0 - 10 [facility] 94.0 /2013 HEMATOLOGY Hct 29.0 42.0 - 10 [facility] 54.0 /2013 HEMATOLOGY RBC 3.15 4.70 - 10 [facility] 6.10 HEMATOLOGY Hgb 9.8 14.0 - 02/08 [facility] 18.0 /2013 HEMATOLOGY WBC 4.9 3.7 - 10.4 02/08 [facility] HEMATOLOGY Lymphocytes # 1.8 1.0 - 5.5 02/08 [facility] HEMATOLOGY Monocytes # 0.6 0.0 - 0.8 02/08 [facility] HEMATOLOGY Eosinophils # 0.1 0.0 - 0.5 02/08 [facility] HEMATOLOGY Segs-Bands # 2.4 1.5 - 8.1 02/08 [facility] HEMATOLOGY Basophils 0.4 0.0 - 1.0 02/08 [facility] HEMATOLOGY Basophils # 0.0 0.0 - 0.2 02/08 [facility] HEMATOLOGY Segs 47.7 45.0 - 02/08 [facility] 75.0 HEMATOLOGY Lymphocytes 36.3 20.0 - 02/08 [facility] 40.0 HEMATOLOGY Monocytes 12.8 2.0 - 12.0 02/08 [facility] HEMATOLOGY Eosinophils 2.8 0.0 - 4.0 02/08 [facility] ANEMIA Ferritin Lvl 38 22 - 275 02/02 [facility] STUDY ANEMIA UIBC 319 110 - 370 02/02 [facility] STUDY ANEMIA % Satur Fe 10 12 - 57 02/02 [facility] STUDY ANEMIA Iron 34 45 - 160 02/02 [facility] STUDY ANEMIA TIBC 353 228 - 428 02/02 [facility] STUDY CHEM PANEL eGFR 102 02/02 <sup>3</sup>R esult Comment: The eGFR is calculated using the CKD-EPI formula. In most young, healthy individuals the eGFR will be >90 mL/min/1.73m2 . The eGFR declines with age. An eGFR of 60-89 may be normal in some populations, particularly the elderly, for whom the CKD-EPI formula has not been extensively validated. Use of the eGFR is not recommended in the following populations:& lt;br/>
I ndividuals with unstable creatinine concentration s, including patients and those with serious co-morbid conditions.<b r/>
Patie nts with extremes in muscle mass or diet.

The data above are obtained from the National Kidney Disease Education Program (NKDEP) which additionally recommends that when the eGFR is used in patients with extremes of body mass index for purposes of drug dosing, the eGFR should be multiplied by the estimated BMI. CHEM PANEL CO2 29 24 - 32 02/02 [facility] CHEM PANEL Calcium Lvl 9.5 8.5 - 10.5 02/02 [facility] CHEM PANEL Sodium Lvl 139 135 - 145 02/02 [facility] CHEM PANEL Potassium Lvl 4.2 3.5 - 5.1 02/02 [facility] CHEM PANEL Chloride Lvl 102 95 - 109 02/02 [facility] CHEM PANEL Creatinine 0.9 0.5 - 1.4 02/02 [facility] Lvl /2013 CHEM PANEL Glucose Lvl 88 70 - 99 02/02 <sup>6</sup>I [facility] nterpretive Data: Adult reference range values reflect the clinical guidelines
of the [place] [employer]. CHEM PANEL BUN 17 7 - 22 02/02 [facility] CHEM PANEL AGAP 12.2 10.0 - 02/02 [facility] 20.0 HEMATOLOGY Eosinophils # 0.1 0.0 - 0.5 02/02 [facility] HEMATOLOGY Monocytes # 0.6 0.0 - 0.8 02/02 [facility] HEMATOLOGY Basophils 0.6 0.0 - 1.0 02/02 [facility] HEMATOLOGY Eosinophils 3.3 0.0 - 4.0 02/02 [facility] HEMATOLOGY Lymphocytes # 1.2 1.0 - 5.5 02/02 [facility] HEMATOLOGY Segs-Bands # 2.3 1.5 - 8.1 02/02 [facility] HEMATOLOGY Basophils # 0.0 0.0 - 0.2 02/02 [facility] HEMATOLOGY Monocytes 13.7 2.0 - 12.0 02/02 [facility] HEMATOLOGY Lymphocytes 28.7 20.0 - 02/02 [facility] 40.0 /2013 HEMATOLOGY Segs 53.7 45.0 - 02/02 [facility] 75.0 /2013 HEMATOLOGY Hct 26.6 42.0 - 02/02 [facility] 54.0 /2013 HEMATOLOGY MCV 90.0 80.0 - 02/02 [facility] 94.0 /2013 HEMATOLOGY WBC 4.2 3.7 - 10.4 02/02 [facility] HEMATOLOGY MCH 30.3 27.0 - 10 [facility] 31.0 /2013 HEMATOLOGY MPV 9.8 7.4 - 10.4 02/02 [facility] HEMATOLOGY RBC 2.96 4.70 - 10 [facility] 6.10 HEMATOLOGY Hgb 9.0 14.0 - 02/02 [facility] 18.0 /2013 HEMATOLOGY Platelet 268 133 - 450 02/02 [facility] HEMATOLOGY RDW 13.3 11.5 - 02/02 [facility] 14.5 HEMATOLOGY MCHC 33.7 32.0 - 02/02 [facility] 36.0 URINE AND [...] (01/25/14 6:00 AM) URINE AND UA 0.2 0.1 - 1.0 01/25 [facility] STOOL Urobilinogen URINE AND UA Nitrite Positive Negative 01/25 [facility] ST[facility]OL *ABN* (01/25/14 6:00 AM) URINE AND UA Ketones Negative Negative 01/25 [facility] ST[facility]OL *NA* (01/25/14 6:00 AM) URINE AND UA Bili Negative Negative 01/25 [facility] STOOL *NA* (01/25/14 6:00 AM) URINE AND UA Turbidity Slight Cloudy Clear 01/25 [facility] STOOL (01/25/14 6:00 AM) URINE AND UA Color Yellow Yellow 01/25 [facility] STOOL *NA* /2013 (01/25/14 6:00 AM) URINE AND UA Protein Negative Negative 01/25 [facility] STOOL (01/25/14 6:00 AM) URINE AND UA pH 7.0 5.0 - 8.0 01/25 [facility] STOOL URINE AND UA Spec Grav 1.015 <=1.030 01/25 [facility] STOOL CHEM PANEL Bili Total 0.2 0.2 - 1.3 01/25 [facility] CHEM PANEL Alk Phos 152 39 - 136 01/25 [facility] CHEM PANEL AST 21 0 - 37 01/25 [facility] CHEM PANEL ALT 44 0 - 65 01/25 [facility] CHEM PANEL Albumin Lvl 3.1 3.5 - 5.0 01/25 [facility] CHEM PANEL Total Protein 6.4 6.4 - 8.4 01/25 [facility] CHEM PANEL A/G Ratio 0.9 0.7 - 1.6 01/25 [facility] CHEM PANEL Globulin 3.3 2.0 - 4.0 01/25 [facility] CHEM PANEL B/C Ratio 22 6 - 25 01/25 [facility] CHEM PANEL Phosphorus 4.4 2.5 - 4.5 01/25 [facility] CHEM PANEL Magnesium Lvl 1.8 1.8 - 2.4 01/25 [facility] HEMATOLOGY PT 13.6 12.0 - 01/25 [facility] 14.7 HEMATOLOGY INR 1.04 0.85 - 01/25 <sup>7</sup>I [facility] 1.17 nterpretive Data: RECOMMENDED RANGES FOR PROTIME INR:
2.0-3.0 for most medical and surgical thromboemboli c states.
2.5-3.5 for artificial heart valves and recurrent embolism.<br/ >
INR SHOULD BE USED ONLY FOR PATIENTS ON STABLE ANTICOAGULANT THERAPY. HEMATOLOGY PTT 31.7 22.9 - 01/25 <sup>8</sup>I [facility] 35.8 /2013 nterpretive Data: Heparin Therapeutic Range: 57 - 92 Seconds IMMUNOLOGY Prealbumin 28.4 18.0 - 01/25 [facility] 45.0 LIPIDS CHD Risk 3.26 4.00 - 01/25 [facility] 7.30 LIPIDS VLDL 28 01/25 [facility] LIPIDS LDL 92 <=99 mg/dL 01/25 [facility] (Calculated) LIPIDS HDL 53 >=61 mg/dL 01/25 [facility] LIPIDS Chol 173 <=199 01/25 [facility] mg/dL LIPIDS Trig 140 <=149 01/25 [facility] mg/dL THYROID TSH 2.950 0.360 - 01/25 [facility] PANEL 3.740 THYROID T4 Free 0.79 0.76 - 01/25 [facility] PANEL 1.46 SPECIAL Hgb A1C <3.5 % <=5.6 % 01/25 [facility] CHEMISTRY IMMUNOLOGY Prealbumin 15.3 18.0 - 12/27 [facility] 45. [facility] IMMUNOLOGY C-REACTIVE 28.5 <=2.9 mg/L 12/27 [facility] CHEM PANEL eGFR 130 12/26 <sup>1</sup>R esult Medical Comment: The Center eGFR is calculated using the CKD-EPI formula. In most young, healthy individuals the eGFR will be >90 mL/min/1.73m2 . The eGFR declines with age. An eGFR of 60-89 may be normal in some populations, particularly the elderly, for whom the CKD-EPI formula has not been extensively validated. Use of the eGFR is not recommended in the following populations:& lt;br/>
I ndividuals with unstable creatinine concentration s, including patients and those with serious co-morbid conditions.<b r/>
Patie nts with extremes in muscle mass or diet.

The data above are obtained from the National Kidney Disease Education Program (NKDEP) which additionally recommends that when the eGFR is used in patients with extremes of body mass index for purposes of drug dosing, the eGFR should be multiplied by the estimated BMI. CHEM PANEL Potassium Lvl 3.6 3.5 - 5.1 12/26 [facility] CHEM PANEL Sodium Lvl 139 135 - 145 12/26 [facility] CHEM PANEL CO2 28 24 - 32 12/26 [facility] CHEM PANEL Chloride Lvl 102 95 - 109 12/26 [facility] CHEM PANEL Calcium Lvl 8.5 8.5 - 10.5 12/26 [facility] CHEM PANEL Glucose Lvl 95 70 - 99 12/26 <sup>4</sup>I nterpretive Medical Data: Adult Center reference range values reflect the clinical guidelines
of the [place] [employer]. CHEM PANEL Creatinine 0.5 0.5 - 1.4 12/26 [facility] CHEM PANEL BUN 6 7 - 22 12/26 [facility] CHEM PANEL AGAP 12.6 10.0 - 12/26 20. [facility] CHEM PANEL Phosphorus 3.2 2.5 - 4.5 12/26 [facility] CHEM PANEL Magnesium Lvl 1.7 1.8 - 2.4 12/26 [facility] HEMATOLOGY Eosinophils # 0.4 0.0 - 0.5 12/26 [facility] HEMATOLOGY Lymphocytes # 1.2 1.0 - 5.5 12/26 [facility] HEMATOLOGY Basophils # 0.1 0.0 - 0.2 12/26 [facility] HEMATOLOGY Monocytes # 0.9 0.0 - 0.8 12/26 [facility] HEMATOLOGY Segs-Bands # 5.4 1.5 - 8.1 12/26 [facility] HEMATOLOGY Basophils 0.7 0.0 - 1.0 12/26 [facility] HEMATOLOGY Eosinophils 4.6 0.0 - 4.0 12/26 [facility] HEMATOLOGY Monocytes 11.7 2.0 - 12.0 12/26 [facility] HEMATOLOGY Lymphocytes 14.7 20.0 - 12/26 [place] 40.0 [facility] HEMATOLOGY Segs 68.3 45.0 - 12/26 75.0 [facility] HEMATOLOGY MPV 7.9 7.4 - 10.4 12/26 [facility] HEMATOLOGY Hgb 8.0 14.0 - 12/26 18.0 [facility] HEMATOLOGY RBC 2.58 4.70 - 12/26 [place] 6.10 [facility] HEMATOLOGY WBC 7.8 3.7 - 10.4 12/26 [facility] HEMATOLOGY MCH 31.2 27.0 - 12/26 [place] 31.0 [facility] HEMATOLOGY MCV 92.3 80.0 - 12/26 94.0 /2013 [facility] HEMATOLOGY Hct 23.8 42.0 - 12/26 [place] 54.0 /2013 [facility] HEMATOLOGY Platelet 455 133 - 450 12/26 [facility] HEMATOLOGY RDW 13.3 11.5 - 12/26 14.5 [facility] HEMATOLOGY MCHC 33.8 32.0 - 12/26 [place] 36.0 [facility] CHEM PANEL Phosphorus 3.6 2.5 - 4.5 12/25 [facility] CHEM PANEL Magnesium Lvl 2.0 1.8 - 2.4 12/25 [facility] CHEM PANEL Phosphorus 2.9 2.5 - 4.5 12/24 [facility] CHEM PANEL eGFR 121 12/24 <sup>2</sup>R esult Medical Comment: The Center eGFR is calculated using the CKD-EPI formula. In most young, healthy individuals the eGFR will be >90 mL/min/1.73m2 . The eGFR declines with age. An eGFR of 60-89 may be normal in some populations, particularly the elderly, for whom the CKD-EPI formula has not been extensively validated. Use of the eGFR is not recommended in the following populations:& lt;br/>
I ndividuals with unstable creatinine concentration s, including patients and those with serious co-morbid conditions.<b r/>
Patie nts with extremes in muscle mass or diet.

The data above are obtained from the National Kidney Disease Education Program (NKDEP) which additionally recommends that when the eGFR is used in patients with extremes of body mass index for purposes of drug dosing, the eGFR should be multiplied by the estimated BMI. CHEM PANEL Glucose Lvl 80 70 - 99 12/24 <sup>5</sup>I nterpretive Medical Data: Adult Center reference range values reflect the clinical guidelines
of the [place] [employer]. CHEM PANEL BUN 9 7 - 22 12/24 [facility] CHEM PANEL Potassium Lvl 3.5 3.5 - 5.1 12/24 [facility] CHEM PANEL Chloride Lvl 108 95 - 109 12/24 [facility] CHEM PANEL CO2 25 24 - 32 12/24 [facility] CHEM PANEL Creatinine 0.6 0.5 - 1.4 12/24 [facility] CHEM PANEL Sodium Lvl 145 135 - 145 12/24 [facility] CHEM PANEL AGAP 15.5 10.0 - 12/24 20.0 [facility] CHEM PANEL Calcium Lvl 8.7 8.5 - 10.5 12/24 [facility] CHEM PANEL Magnesium Lvl 1.7 1.8 - 2.4 12/24 [facility] HEMATOLOGY Eosinophils # 0.3 0.0 - 0.5 12/24 [facility] HEMATOLOGY Lymphocytes # 1.2 1.0 - 5.5 12/24 [facility] HEMATOLOGY Monocytes # 1.0 0.0 - 0.8 12/24 [facility] HEMATOLOGY Basophils 0.4 0.0 - 1.0 12/24 [facility] HEMATOLOGY Eosinophils 2.7 0.0 - 4.0 12/24 [facility] HEMATOLOGY Segs-Bands # 8.8 1.5 - 8.1 12/24 [facility] HEMATOLOGY Segs 78.1 45.0 - 12/24 [place] 75.0 [facility] HEMATOLOGY Monocytes 8.5 2.0 - 12.0 12/24 [facility] HEMATOLOGY Lymphocytes 10.3 20.0 - 12/24 [place] 40.0 /2013 [facility] [place] HEMATOLOGY MCV 94.1 80.0 - 12/24 [place] 94.0 [facility] HEMATOLOGY Hct 24.4 42.0 - 12/24 [place] 54.0 [facility] HEMATOLOGY Hgb 8.2 14.0 - 12/24 [place] 18.0 [facility] HEMATOLOGY WBC 11.3 3.7 - 10.4 12/24 [facility] HEMATOLOGY RBC 2.59 4.70 - 12/24 [place] 6.10 [facility] HEMATOLOGY MPV 7.5 7.4 - 10.4 12/24 [facility] HEMATOLOGY Platelet 488 133 - 450 12/24 [facility] HEMATOLOGY RDW 14.2 11.5 - 12/24 [place] 14.5 /2013 [facility] 33.[facility] 32.0 - 12/24 [place] 36.0 /2013 [facility] HEMATOLOGY [facility] 31.8 27.0 - 12/24 [place] 31.0 /2013 [facility] CARDIAC Troponin-T <0.010 0.000 - 12/23 [place] ENZYMES 0.100 /2013 [facility] CARDIAC Troponin-I <0.02 0.00 - 12/23 [place] ENZYMES 0.40 /2013 [facility] CARDIAC Total CK 509 12 - 191 12/23 [place] ENZYMES /2013 [facility] CARDIAC CK MB Index 0.5 0.0 - 2.5 12/23 [place] ENZYMES /2013 [facility] CARDIAC CK MB 2.3 0.5 - 3.6 12/23 [place] ENZYMES /2013 [facility] ELECTROLYTE AGAP 16.1 10.0 - 12/23 [place] S 20.0 /2013 [facility] ELECTROLYTE eGFR 121 12/23 <sup>3</sup>R esult Medical Comment: The Center eGFR is calculated using the CKD-EPI formula. In most young, healthy individuals the eGFR will be >90 mL/min/1.73m2 . The eGFR declines with age. An eGFR of 60-89 may be normal in some populations, particularly the elderly, for whom the CKD-EPI formula has not been extensively validated. Use of the eGFR is not recommended in the following populations:& lt;br/>
I ndividuals with unstable creatinine concentration s, including patients and those with serious co-morbid conditions.<b r/>
Patie nts with extremes in muscle mass or diet.

The data above are obtained from the National Kidney Disease Education Program (NKDEP) which additionally recommends that when the eGFR is used in patients with extremes of body mass index for purposes of drug dosing, the eGFR should be multiplied by the estimated BMI. ELECTROLYTE Glucose Lvl 118 70 - 99 12/23 <sup>6</sup>I nterpretive Medical Data: Adult Center reference range values reflect the clinical guidelines
of the [place] [employer]. ELECTROLYTE BUN 10 7 - 22 12/23 [place] [facility] ELECTROLYTE Creatinine 0.6 0.5 - 1.4 12/23 [facility] S Lvl /2013 [facility] ELECTROLYTE Chloride Lvl 109 95 - 109 12/23 [facility] ELECTROLYTE Calcium Lvl 8.3 8.5 - 10.5 12/23 [facility] ELECTROLYTE CO2 22 24 - 32 12/23 [facility] ELECTROLYTE Sodium Lvl 143 135 - 145 12/23 [facility] ELECTROLYTE Potassium Lvl 4.1 3.5 - 5.1 12/23 [facility] HEMATOLOGY Angle 82 64 - 80 12/23 [facility] HEMATOLOGY K-time 0.8 0.6 - 2.3 12/23 [facility] HEMATOLOGY Max Amp 78 52 - 71 12/23 [facility] HEMATOLOGY G-value 17.4 5.0 - 11.6 12/23 [facility] HEMATOLOGY Estimated % 1.2 0.0 - 7.5 12/23 [facility] HEMATOLOGY Rapid TEG Citrated 12/23 [facility] Sample Type [facility] Center HEMATOLOGY ACT (TEG) 128 86 - 118 12/23 [facility] HEMATOLOGY R-time 0.8 0.4 - 0.7 12/23 [facility] HEMATOLOGY [place] 0.8 12/23 [facility] HEMATOLOGY MPV 7.2 7.4 - 10.4 12/23 [facility] HEMATOLOGY Hct 22.8 42.0 - 12/23 [place] 54.0 [facility] HEMATOLOGY MCHC 33.7 32.0 - 12/23 36.0 [facility] HEMATOLOGY RDW 13.9 11.5 - 12/23 [place] 14.5 [facility] HEMATOLOGY MCV 93.6 80.0 - 12/23 [place] 94.0 /2013 [facility] HEMATOLOGY MCH 31.5 27.0 - 12/23 [place] 31.0 [facility] HEMATOLOGY Platelet 543 133 - 450 12/23 [facility] HEMATOLOGY Hgb 7.7 14.0 - 12/23 [place] 18.0 [facility] HEMATOLOGY RBC 2.44 4.70 - 12/23 [place] 6.10 [facility] HEMATOLOGY WBC 15.1 3.7 - 10.4 12/23 [facility] HEMATOLOGY Lymphocytes 5.3 20.0 - 12/23 [place] 40.0 /2013 [facility] HEMATOLOGY Segs 87.4 45.0 - 08 [place] 75.0 [facility] HEMATOLOGY Lymphocytes # 0.8 1.0 - 5.5 12/23 [facility] HEMATOLOGY Eosinophils # 0.1 0.0 - 0.5 12/23 [facility] HEMATOLOGY Segs-Bands # 13.2 1.5 - 8.1 12/23 [facility] HEMATOLOGY Monocytes 6.3 2.0 - 12.0 12/23 [facility] HEMATOLOGY Basophils 0.3 0.0 - 1.0 12/23 [facility] HEMATOLOGY Monocytes # 0.9 0.0 - 0.8 12/23 [facility] HEMATOLOGY Eosinophils 0.7 0.0 - 4.0 12/23 [facility] BLOOD BANK ABO/Rh B NEG 12/23 [facility] BLOOD BANK Antibody Scrn Negative 12/23 [facility] RESULTS (12/23/13 8:00 AM) [facility] CHEM PANEL AST 59 0 - 37 12/21 [facility] CHEM PANEL Total Protein 6.0 6.4 - 8.4 12/21 [facility] CHEM PANEL Albumin Lvl 2.7 3.5 - 5.0 12/21 [facility] CHEM PANEL ALT 60 0 - 65 12/21 [facility] CHEM PANEL Alk Phos 179 39 - 136 12/21 [facility] CHEM PANEL Bili Total 0.7 0.2 - 1.3 12/21 [facility] CHEM PANEL A/G Ratio 0.8 0.7 - 1.6 12/21 [facility] CHEM PANEL Globulin 3.3 2.0 - 4.0 12/21 [facility] CHEM PANEL B/C Ratio 20 6 - 25 12/21 [facility] HEMATOLOGY Basophils # 0.1 0.0 - 0.2 12/21 [facility] BLOOD BANK Antibody Scrn Negative 12/20 [facility] RESULTS (12/20/13 11:10 AM) [facility] BLOOD BANK ABO/Rh B NEG 12/20 [facility] HEMATOLOGY Basophils # 0.1 0.0 - 0.2 12/20 [facility] CHEM PANEL ALT 66 0 - 65 12/19 [facility] CHEM PANEL AST 39 0 - 37 12/19 [facility] CHEM PANEL Total Protein 6.1 6.4 - 8.4 12/19 [facility] CHEM PANEL Alk Phos 200 39 - 136 12/19 [facility] CHEM PANEL Bili Total 0.6 0.2 - 1.3 12/19 [facility] CHEM PANEL Albumin Lvl 2.7 3.5 - 5.0 12/19 [facility] CHEM PANEL Bili Direct 0.1 0.0 - 0.3 12/19 [facility] CHEM PANEL A/G Ratio 0.8 0.7 - 1.6 12/19 [facility] CHEM PANEL Globulin 3.4 2.0 - 4.0 12/19 [facility] CHEM PANEL Bili Indirect 0.5 0.0 - 1.0 12/19 [facility] CHEM PANEL Bili Total 0.8 0.2 - 1.3 12/17 [facility] CHEM PANEL B/C Ratio 48 6 - 25 12/17 [facility] CHEM PANEL Total Protein 7.1 6.4 - 8.4 12/17 [facility] CHEM PANEL Alk Phos 263 39 - 136 12/17 [facility] CHEM PANEL AST 47 0 - 37 12/17 [facility] CHEM PANEL ALT 107 0 - 65 12/17 [facility] CHEM PANEL Albumin Lvl 2.9 3.5 - 5.0 12/17 [facility] CHEM PANEL Globulin 4.2 2.0 - 4.0 12/17 [facility] CHEM PANEL A/G Ratio 0.7 0.7 - 1.6 12/17 [facility] CHEM PANEL B/C Ratio 46 6 - 25 08/ [facility] PARATHYROID Ca Ion WB 1.09 1.05 - 08 [place] PROFILE 05.28 [facility] PARATHYROID Ca Norm WB 1.10 1.05 - 12/12 [place] PROFILE 05.28 [facility] PARATHYROID Ca Ion WB 1.13 1.05 - 12/11 [place] PROFILE 05.28 [facility] PARATHYROID Ca Norm WB 1.16 1.05 - 12/11 [facility] PROFILE . [facility] CHEM PANEL VITAMIN B1 121 78 - 185 12/10 <sup>7</sup>R [facility] (THIAMINE) [facility] WHOLE BLOOD Comment: Test Center Performed at:
[facility]<br/ >[id number] [facility]
[place] [address] Pastora Basurto MD, PhD ANEMIA Folate Lvl 28.5 >=3.0 12/10 [facility] STUDY ng/mL /2013 [facility] ANEMIA Vitamin B12 561 254 - 1320 12/10 [facility] STUDY Lvl /2013 [facility] THYROID TSH 3.090 0.360 - 12/10 [facility] PANEL 3.740 [facility] IMMUNOLOGY Prealbumin 14.8 18.0 - 12/10 [facility] 45.0 [facility] IMMUNOLOGY C-REACTIVE 236.0 <=2.9 mg/L 12/10 [facility] PROTEIN [facility] PARATHYROID Ca Norm WB 1.14 1.05 - 12/10 [facility] PROFILE 1. [facility] PARATHYROID Ca Ion WB 1.16 1.05 - 12/10 [facility] PROFILE 1. [facility] IMMUNOLOGY C-REACTIVE 88.6 <=2.9 mg/L 12/06 [facility] PROTEIN [facility] IMMUNOLOGY Prealbumin 14.9 18.0 - 12/06 [facility] 45.0 [facility] BACTERIAL - MRSA by PCR Positive 12/03 <sup>11</sup> [facility] SEROLOGY *ABN* Result Medical (12/03/13 4:38 AM) Comment: Center "Significant Findings called to Catalino Mckinley_at 0255pm___by fg___.Read Back OK."
<sup >12</sup>Inte rpretive Data: Interpretive Data: The [employer] MRSA assay is a qualitative test for the direct detection of nasal colonization with methicillin-r esistant Staphylococcu s aureus (MRSA) to aid in the prevention and control of MRSA infections in healthcare settings. A positive result does not indicate an infection or require treatment. A negative result does not exclude colonization or infection.

The polymerase chain reaction (PCR) assay detects a proprietary sequence indicative of the integration of the SCCmec cassette into the Staphylococcu s aureus chromosome, indicating the presence of MRSA DNA. The assay utilizes FDA cleared IVD reagents. Performance characteristi cs have been verified by the Molecular Diagnostic Laboratory within the [facility]. The Molecular Diagnostic Laboratory is authorized under the Clinical Laboratory Improvement Amendment of 1988 (CLIA-88) to perform high complexity testing. HEMATOLOGY G-value 7.8 4.5 - 11.0 12/03 [facility] HEMATOLOGY Coag Index 2.2 -3.0-3.0 - 12/03 [facility] 3.0 [facility] HEMATOLOGY Max Amp 60.9 50.0 - 12/03 [facility] 70.0 [facility] HEMATOLOGY Angle 69.6 53.0 - 12/03 [facility] 72.0 [facility] HEMATOLOGY K-time 1.6 1.0 - 3.0 12/03 [facility] HEMATOLOGY R-time 3.3 5.0 - 10.0 12/03 [facility] HEMATOLOGY TEG Data See Note 10 12/03 <sup>10</sup> [facility] (12/03/13 4:38 AM) Interpretive Medical Data: Normal Center ranges are for citrated whole blood with kaolin activator.

R TIME: Reflects the degree of anti-coagulat ion due to LMWH, unfractionate d heparin, and coumadin as well as non-specific< br/>factor deficiencies.

K TIME, ALPHA ANGLE, AND MA(MAX AMPLITUDE): Have been
asso ciated with the platelet release reaction and fibrin
po lymer formation. These parameters assess the speed of clot
form ation and the tensil strength of the clot. Higher levels
ar e associated with hypercoagulab le states.
< br/>G VALUE: Another measure of clot strength.<br/ >
LY30: Percent lysis in 30 Minutes is associated with the degree
of fibrinolysis.

CI or COAG INDEX: A calculation from the above measured data
annette cating an overall hyper or hypo coagulability with values
ab ove (plus) +3.0 being relatively hypercoagulab le and those
bel ow (minus) -3.0 being relatively hypocoagulabl e.
<br/&g t;These measurements are functional in nature with many variables<br/ >and require close clinical correlation.< br/>
Thro mboelasograph y (TEG) is mostly used to monitor significant coagulopathy in trauma patients or surgical patients. It assesses gloabal (primary and secondary) hemostasis using whole blood and therefore, not expected to correlate well with conventional coagulation tests. TEG results need to be correlated with clinical evaluation for patient management. HEMATOLOGY TEG Interp Thrombelas 12/03 [facility] tograph [facility] show shortened value of R. 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 CPT:71144 HEMATOLOGY Ly30 0.3 0.0 - 7.5 12/03 [facility] BLOOD BANK FFP product Product available 12/03 [facility] RESULTS (12/03/13 12:13 AM) [facility] BLOOD BANK Antibody Scrn Negative 12/03 [facility] RESULTS (12/02/13 10:59 PM) [facility] BLOOD BANK ABO/Rh B NEG 12/03 [facility] RESULTS /2013 [facility] CHEM PANEL Lactic Acid 2.9 0.5 - 2.2 12/03 [facility] Lvl /2013 [facility] HEMATOLOGY Rapid TEG Citrated 12/03 [facility] Sample Type Whole /2013 [facility] HEMATOLOGY R-time 0.8 0.4 - 0.7 12/03 [facility] HEMATOLOGY Split Point 0.8 12/03 [facility] HEMATOLOGY ACT (TEG) 128 86 - 118 12/03 [facility] HEMATOLOGY K-time 1.8 0.6 - 2.3 12/03 [facility] HEMATOLOGY G-value 7.2 5.0 - 11.6 12/03 [facility] HEMATOLOGY Max Amp 59 52 - 71 12/03 [facility] HEMATOLOGY Angle 68 64 - 80 12/03 [facility] HEMATOLOGY Estimated % 0.7 0.0 - 7.5 12/03 [facility] Lysis [facility] HEMATOLOGY RBC Morph Normal 12/03 [facility] (12/02/13 10:55 PM) [facility] HEMATOLOGY Plt Morph Normal 12/03 [facility] (12/02/13 10:55 PM) [facility] HEMATOLOGY Atypical 0.0 <=0.0 % 12/03 [facility] HEMATOLOGY Bands 1.0 0.0 - 11.0 12/03 [facility] TOXICOLOGY Etoh (%) 0.072 12/03 <sup>8</sup>I nterpretive Medical Data: Ethanol Center testing results should be used for medical purposes only.
Neg ative Range: <0.003%
T oxic Range: >0.25% TOXICOLOGY Ethanol Lvl 72 12/03 <sup>9</sup>I nterpretive Medical Data: Center Negative Range: <3 mg/dL
Tox ic Range: >250 mg/dL Pathology Reports No Data Provided for This Section Diagnostic Reports Report Value Date Source Ankle 3 views DX EXAM: XR RIGHT ANKLE 3 VIEWS 09/05/2015 MATT Christopher EXAM: XR RIGHT FOOT 3 VIEWS DATE: 09/05/2015 0748 hours INDICATION: Pain. Follow-up right spastic equinovarus foot [...] seen equinovarus status post reconstruction. Foot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
[2019-01-06] MEDS ORDERED: NA CHLORIDE 0.9% 0 ML ONE (12:21)
[2019-01-06] MEDS ORDERED: NA CHLORIDE 0.9% 2,000 ML ONE (12:28)
[2019-01-06] MEDS ORDERED: ACETAMINOPHEN 650MG/RECT SUPP PR ONE (12:28)
[2019-01-06] MEDS ORDERED: levETIRAcetam 1,000 MG in NA CHLORIDE 0.9% 100 ML IV ONE (12:30)
[2019-01-06 12:35] LABS: Absolute Lymphocytes (CBC) 3.5 K/uL (0.7-4.9); Basophils % 0.4 % (0-1.3); Hematocrit 42.1 % (39.6-49.0); Lymphocytes % 24.6 % (15.3-44.8); MPV 8.4 fL (7.6-11.3); RBC Red Blood Cell Count 4.46 M/uL (4.33-5.43)
--- NOTE | 2019-01-06 12:36 | RAD REPORT ---
EXAM DESCRIPTION: Fern Single View01/06/2019 12:26 pm CLINICAL HISTORY: Shortness of breath COMPARISON: September 2018 FINDINGS: The lungs appear clear of acute infiltrate. The heart is normal size Pneumoperitoneum is present IMPRESSION: Pneumoperitoneum. This may indicate a bowel perforation. Exam was discussed with Dr. Kyra borja in the Emergency Room at 12:30 p.m. January 06, 2019
--- NOTE | 2019-01-06 12:47 | RAD REPORT ---
EXAM DESCRIPTION: CT - Head Brain Wo Cont - 01/06/2019 12:40 pm CLINICAL HISTORY: Seizures COMPARISON: 2014 TECHNIQUE: Computed axial tomography of the head was obtained. IV contrast was not requested. All CT scans are performed using dose optimization technique as appropriate and may include automated exposure control or mA/KV adjustment according to patient size. FINDINGS: An intracranial bleed is not seen . The ventricles are normal in caliber. No extra-axial fluid collection is noted. Cerebral atrophy is present. Old right frontal lobe infarct Fluid within the sinuses/ mastoids is not seen. IMPRESSION: No acute intracranial abnormality is seen. If patient's symptoms persist MRI of the bra in would be recommended.
--- NOTE | 2019-01-06 12:54 | RAD REPORT ---
EXAM DESCRIPTION: CT - Abdomen Pelvis Wo Contrast - 01/06/2019 12:41 pm CLINICAL HISTORY: Abnormal radiologic exam COMPARISON: January 06, 2019 chest x-ray TECHNIQUE: Computed axial tomography of the abdomen and pelvis was obtained. IV and oral contrast we re not requested. All CT scans are performed using dose optimization technique as appropriate and may include automated exposure control or mA/KV adjustment according to patient size. FINDINGS: The evaluation of solid organs, vessels and bowel is limited secondary to the lack of con trast administration. Air filled colon abuts the right hemidiaphragm accounting for the lucency seen on the chest x-ray. Pn eumoperitoneum is not present The liver, spleen, pancreas, adrenals and kidneys appear grossly normal. The appendix is normal. There is no evidence of diverticulitis. The rectum is mildly distended with stool. Small left inguinal hernia contains fat IMPRESSION: Rectum is mildly distended with stool
[2019-01-06 13:03] LABS: Potassium 4.2 mmol/L (3.5-5.1)
[2019-01-06 13:11] LABS: Bilirubin Direct 0.1 mg/dL (0-0.2); Bilirubin Total 0.4 mg/dL (0.2-1.0); Protein, Total 7.9 g/dL (6.4-8.2)
[2019-01-06] MEDS ORDERED: PIPER/TAZO/NS 4.5gm 4.5 GM/100 ML BAG IV ONE (13:30)
[2019-01-06 13:47] LABS: Urine Blood 2+ (NEG); Urine Glucose TRACE (NEG); Urine Protein 2+ (NEG); Urine Specific Gravity 1.025 (1.005-1.030)
--- NOTE | 2019-01-06 13:47 | ER ---
Nurse's Notes [facility] Name: Rafy Blanca Age: 53 yrs Sex: Male : 1965 Arrival Date: 01/06/2019 Time: 12:08 Bed 4 Private MD: Diagnosis: Epileptic seizures related to external causes, not intractable, with status epilepticus;Acidosis;Altered mental status, unspecified;Dehydration Presentation: 01/06 12:09 Presenting complaint: EMS states: pt is resident at [facility], hx of TBI, iw hx of seizures, has had approx 4-5 seizures in past 30 minutes, EMS reports pt was actively seizing upon arrival, administered a total of 4 mg Ativan IVP, pt arrives to ER, snoring respiration, 98% on NRB, WE=113, blinking eyes, pt normally A\T\OX4. Transition of care: patient was received from another setting of care (long-term care facility), [facility]. Onset of symptoms was January 06, 2019. Risk Assessment: Do you want to hurt yourself or someone else? Patient reports no desire to harm self or others. Initial Sepsis Screen: Does the patient meet any 2 criteria? HR > 90 bpm. 12:09 Method Of Arrival: EMS: [facility] iw 12:09 Acuity: SHONDA 2 iw 12:23 Initial Sepsis Screen: Does the patient meet any 2 criteria? RR > 20 per min. Temp iw <36.0*C (96.8*F)) or > 38.3*C (100.9*F). HR > 90 bpm. Does the patient have a suspected source of infection? No. Patient's initial sepsis screen is negative. Care prior to arrival: IV initiated. 20 GA, in the left forearm, Glucose check: 242 Oxygen administered. via a non-rebreather mask. Triage Assessment: 15:30 General: Appears in no apparent distress. Behavior is calm, cooperative, appropriate sg for age. Historical: - Allergies: 12:12 THIOPENIAL; iw - Home Meds: 12:31 acetaminophen 325 mg Oral tab 1 tab every 4 hours [Active]; aspirin 325 mg Oral TbEC 1 iw tab once daily [Active]; Ativan 1 mg Oral tab 1 tab 2 times per day [Active]; Depakote Sprinkles 125 mg Oral cpSP nightly [Active]; ibuprofen 800 mg Oral tab 1 tab 3 times per day [Active]; levetiracetam 500 mg oral tab 1 tab 2 times per day [Active]; Miralax 17 gram Oral pwpk 1 packet once daily [Active]; Pepcid 20 mg Oral tab 1 tab once daily [Active]; Senokot 8.6 mg Oral tab 2 tabs once daily [Active]; acetaminophen-codeine 300-30 mg Oral tab 1 tab every 4-6 hours [Active]; - PMHx: 12:15 TBI; Seizures; iw - PSHx: 12:12 G-tube; tracheostomy; iw - Immunization history:: Adult Immunizations up to date. - Social history:: Smoking status: Patient/guardian denies using tobacco. - Ebola Screening: : Patient negative for fever greater than or equal to 101.5 degrees Fahrenheit, and additional compatible Ebola Virus Disease symptoms Patient denies exposure to infectious person Patient denies travel to an Ebola-affected area in the 21 days before illness onset No symptoms or risks identified at this time. - Family history:: not pertinent. - Hospitalizations: : No recent hospitalization is reported. Screenin:23 Abuse screen: Denies threats or abuse. Denies injuries from another. Tuberculosis iw screening: No symptoms or risk factors identified. Fall Risk IV access (20 points). Assessment: 12:15 General: Appears uncomfortable, ill, well developed, Behavior is listless. Pain: Unable iw to use pain scale. Patient is unresponsive. Neuro: Level of Consciousness is listless, Oriented to none. Cardiovascular: Capillary refill < 3 seconds in bilateral fingers toes Patient's skin is warm and dry. Rhythm is sinus tachycardia. Respiratory: Respiratory effort is labored, Respiratory pattern is snoring the patient has moderate shortness of breath. GI:. Derm: Skin is healthy with good turgor. Musculoskeletal: Range of motion:. 14:20 Reassessment: pt dad at bedside at this time, pt father updated on pt condition and sg POC, stated understanding, contact info left for pt chart. Kleber (Rafy's Dad) [phone]. Reassessment: Kaela ( Rafys Sister) [phone]. Vital Signs: 12:15 BP 138 / 94; Pulse 148; Resp 22 S; Pulse Ox 98% on Non-rebreather mask; Weight 74.84 iw kg; Height 5 ft. 7 in. (170.18 cm); 12:22 Temp 101.4(A); iw 13:07 BP 107 / 79; Pulse 125; Resp 20 S; Temp 99.3(R); Pulse Ox 98% on Non-rebreather mask; iw 13:45 Temp 99.8(R); sg 14:47 BP 124 / 86; Pulse 105; Resp 17; Temp 98.8; Pulse Ox 99% on 3 lpm NC; sg 12:15 Body Mass Index 25.84 (74.84 kg, 170.18 cm) iw [place] Coma Score: 12:15 Eye Response: to voice(3). Verbal Response: none(1). Motor Response: withdraws from sg pain(4). Total: 8. 15:30 Eye Response: to voice(3). Verbal Response: none(1). Motor Response: withdraws from sg pain(4). Total: 8. ED Course: 12:08 Patient arrived in ED. iw 12:08 Derrick Wyman MD is Attending Physician. rn 12:10 First set of blood cultures drawn by me. Initial lab(s) drawn, by me, sent to lab. sg Inserted saline lock: 20 gauge in left hand, using aseptic technique. Blood collected. 12:11 Triage completed. iw 12:15 Seizure precautions initiated. sg 12:16 Arm band placed on. iw 12:23 Maintain EMS IV. Dressing intact. Good blood return noted. Site clean \T\ dry. Gauge \T\ iw site: 20 LFA. 12:27 Ian Miguel, RN is Primary Nurse. sg 12:30 XRAY Chest (1 view) In Process Unspecified. EDMS 12:30 Radiology exam delayed due to. sj 12:30 Patient has correct armband on for positive identification. Bed in low position. Call sg light in reach. Side rails up X2. Placed in gown. cardiac monitor technician on. Pulse ox on. NIBP on. Pillow given. sheet provided for a bit of warmth Head of bed elevated. 12:30 Second set of blood cultures drawn by me. sg 12:43 CT Head Brain wo Cont In Process Unspecified. EDMS 12:43 CT Abd/Pelvis - Without Contrast In Process Unspecified. EDMS 13:00 Urine collected: Hinkle catheter specimen, clear, Amount Returned: 600mL. sg 13:42 Marilin Caberra MD is Hospitalizing Provider. rn 15:00 Repeat lab(s) drawn. by me, sent to lab. a lactate, and a CPK was drawn as ordered. sg 15:30 No provider procedures requiring assistance completed. Patient admitted, IV remains in sg place. intact, No redness/swelling at site. Administered Medications: Discontinued: NS 0.9% 1000 ml IV at 1000 ml once 12:25 Drug: NS 0.9% 1000 ml Route: IV; Rate: 1000 ml; Site: left antecubital; iw 12:40 Drug: Keppra 1000 mg Route: IV; Rate: 1 calculated rate; Site: left antecubital; sg 13:07 Drug: Tylenol Suppository 650 mg Route: DE; iw 14:00 Follow up: Response: No adverse reaction; Temperature is decreased sg 13:07 Drug: NS 0.9% (30 ml/kg) 30 ml/kg Route: IV; Rate: bolus; Site: left antecubital; iw 14:31 Follow up: Response: No adverse reaction; IV Status: Completed infusion; IV Intake: sg 2500ml 13:15 Drug: Zosyn 4.5 grams Route: IVPB; Infused Over: 60 mins; Site: left hand; sg 14:30 Follow up: Response: No adverse reaction; IV Status: Completed infusion sg Point of Care Testing: Blood Glucose: 12:25 Blood Glucose: 89 mg/dL; sg Ranges: Intake: 14:31 IV: 2500ml; Total: 2500ml. sg Outcome: 13:43 Decision to Hospitalize by Provider. rn 15:30 Admitted to ICU accompanied by nurse, accompanied by tech, via stretcher, room 7, with sg oxygen, on monitor, with chart, Report called to bedside report given to fransisco PRESCOTT 15:30 Condition: improved 15:30 Instructed on the need for admit. 15:33 Patient left the ED. jb1 Signatures: Dispatcher [employer] Angelo Lance jb1 Ian Miguel RN RN sg Jones, Susan sj Williams, Irene, RN RN Derrick Wyman MD MD rn
--- NOTE | 2019-01-06 13:48 | EDPHYS ---
Physician Documentation [facility] Name: Rafy Blanca Age: 53 yrs Sex: Male : 1965 Arrival Date: 01/06/2019 Time: 12:08 Bed 4 Private MD: ED Physician Derrick Wyman HPI: 01/06 12:27 This 53 yrs old Male presents to ER via EMS with complaints of Seizure. rn 12:27 The patient presents with a history of multiple seizures. Seizure onset: 1 hour(s) ago. rn Current symptoms: decreased level of consciousness. The patient has experienced similar episodes in the past. Patient with previous traumatic brain injury and SAH, hemiplegic, has seizure disorders, takes keppra and depakote, sent from group home for seizures that wouldn't stop, per EMS report, approx 30-35 min of seizure activity, generalized, EMS gave 2 doses of ativan after first did not stop seizure, second dose stopped seizure, now sedated. No know new trauma. Historical: - Allergies: 12:12 THIOPENIAL; iw - Home Meds: 12:31 acetaminophen 325 mg Oral tab 1 tab every 4 hours [Active]; aspirin 325 mg Oral TbEC 1 iw tab once daily [Active]; Ativan 1 mg Oral tab 1 tab 2 times per day [Active]; Depakote Sprinkles 125 mg Oral cpSP nightly [Active]; ibuprofen 800 mg Oral tab 1 tab 3 times per day [Active]; levetiracetam 500 mg oral tab 1 tab 2 times per day [Active]; Miralax 17 gram Oral pwpk 1 packet once daily [Active]; Pepcid 20 mg Oral tab 1 tab once daily [Active]; Senokot 8.6 mg Oral tab 2 tabs once daily [Active]; acetaminophen-codeine 300-30 mg Oral tab 1 tab every 4-6 hours [Active]; - PMHx: 12:15 TBI; Seizures; iw - PSHx: 12:12 G-tube; tracheostomy; iw - Immunization history:: Adult Immunizations up to date. - Social history:: Smoking status: Patient/guardian denies using tobacco. - Ebola Screening: : Patient negative for fever greater than or equal to 101.5 degrees Fahrenheit, and additional compatible Ebola Virus Disease symptoms Patient denies exposure to infectious person Patient denies travel to an Ebola-affected area in the 21 days before illness onset No symptoms or risks identified at this time. - Family history:: not pertinent. - Hospitalizations: : No recent hospitalization is reported. ROS: 12:27 Unable to obtain ROS due to altered mental status. rn Exam: 12:27 Constitutional: Thin male, no seizure activity, breathing spontaneously but with rn decreased LOC. Head/Face: Normocephalic, atraumatic. Eyes: Pupils reactive right pupil slightly larger than left, blinking spontaneously ENT: dry MM, with dry blood in oropharynx Neck: Trachea midline, no thyromegaly or masses palpated, and no cervical lymphadenopathy. Supple, full range of motion without nuchal rigidity, or vertebral point tenderness. No Meningismus. Cardiovascular: Tachycardic, regular Respiratory: + mild tachypnea, no retractions, coarse bilateral breath sounds Abdomen/GI: soft, non-distended MS/ Extremity: Pulses equal, no cyanosis. Neurovascular intact. Full, normal range of motion. Equal circumference. Neuro: Somnolent, not following commands, no seizure activity, blinking spontaneously, appears post-ictal. Vital Signs: 12:15 BP 138 / 94; Pulse 148; Resp 22 S; Pulse Ox 98% on Non-rebreather mask; Weight 74.84 iw kg; Height 5 ft. 7 in. (170.18 cm); 12:22 Temp 101.4(A); iw 13:07 BP 107 / 79; Pulse 125; Resp 20 S; Temp 99.3(R); Pulse Ox 98% on Non-rebreather mask; iw 13:45 Temp 99.8(R); sg 14:47 BP 124 / 86; Pulse 105; Resp 17; Temp 98.8; Pulse Ox 99% on 3 lpm NC; sg 12:15 Body Mass Index 25.84 (74.84 kg, 170.18 cm) iw [place] Coma Score: 12:15 Eye Response: to voice(3). Verbal Response: none(1). Motor Response: withdraws from sg pain(4). Total: 8. 15:30 Eye Response: to voice(3). Verbal Response: none(1). Motor Response: withdraws from sg pain(4). Total: 8. MDM: 12:08 Patient medically screened. rn 12:54 ED course: Per Dr. Srivastava, no free air on CT abdomen, just bowel trapped under rn diaphragm.. 13:32 ED course: Pt improved no longer with seizure activity, elevated lactate, febrile, no rn source yet. CT abdomen no acute findings. CXR clear. CT head no acute findings. improving with fluids. . 13:41 Differential diagnosis: cardiac arrhythmia, seizure. Data reviewed: vital signs, nurses rn notes, lab test result(s), EKG, radiologic studies, CT scan, plain films, and as a result, I will admit patient. Counseling: I had a detailed discussion with the patient and/or guardian regarding: the historical points, exam findings, and any diagnostic results supporting the discharge/admit diagnosis, lab results, radiology results, the need for further work-up and treatment in the hospital. Response to treatment: the patient's symptoms have mildly improved after treatment, and as a result, I will admit patient. Admission orders: after a detailed discussion of the patient's condition and case, the admit orders are written by me. ED course: Pt now mumbling with response to pain. Consulted with Dr. Reynaga who is willing to consult, spoke with Dr. Cabrera who will admit to ICU. Fever possibly from prolonged seizure or early aspiration. Zosyn, tylenol, and fluids given. Improving vitals. . 01/06 12:09 Order name: CBC with Diff; Complete Time: 13:10 rn 01/06 12:09 Order name: Basic Metabolic Panel; Complete Time: 13:16 rn 01/06 12:09 Order name: Urine Culture rn 01/06 12:09 Order name: Urine Microscopic Only rn 01/06 12:09 Order name: Procalcitonin; Complete Time: 13:34 rn 01/06 12:09 Order name: Lactate; Complete Time: 13:34 rn 01/06 12:09 Order name: Blood Culture Adult (2) rn 01/06 12:26 Order name: Flu; Complete Time: 14:06 rn 01/06 12:27 Order name: Creatinine for Radiology; Complete Time: 13:34 rn 01/06 12:27 Order name: Hepatic Function; Complete Time: 13:16 rn 01/06 12:27 Order name: Lipase; Complete Time: 13:16 rn 01/06 13:25 Order name: Urine Dipstick--Ancillary (enter results); Complete Time: 14:06 bd 01/06 13:37 Order name: CK rn 01/06 14:11 Order name: CBC with Automated Diff EDMS 01/06 12:09 Order name: CT Head Brain wo Cont; Complete Time: 13:10 rn 01/06 12:09 Order name: XRAY Chest (1 view); Complete Time: 13:10 rn 01/06 12:31 Order name: CT Abd/Pelvis - Without Contrast; Complete Time: 13:16 rn 01/06 14:11 Order name: CBC with Automated Diff EDMS 01/06 14:11 Order name: CBC with Automated Diff EDMS 01/06 14:12 Order name: CBC with Automated Diff EDMS 01/06 14:12 Order name: Comprehensive Metabolic Panel EDMS 01/06 14:12 Order name: Comprehensive Metabolic Panel EDMS 01/06 14:12 Order name: Comprehensive Metabolic Panel EDMS 01/06 14:12 Order name: Comprehensive Metabolic Panel EDMS 01/06 14:15 Order name: Lactate EDMS 01/06 14:32 Order name: KEPPRA (LEVETIRACETAM) EDMS 01/06 14:32 Order name: Valproic Acid (Depakene) Level EDMS 01/06 14:35 Order name: ABG bd 01/06 14:44 Order name: ABG Arterial Blood Gas EDMS 01/06 12:09 Order name: IV Start; Complete Time: 12:26 rn 01/06 12:09 Order name: Urine Dipstick-Ancillary (obtain specimen); Complete Time: 15:02 rn 01/06 12:27 Order name: Labs collected and sent; Complete Time: 12:31 rn 01/06 13:10 Order name: EKG; Complete Time: 13:10 rn 01/06 13:10 Order name: EKG - Nurse/Tech; Complete Time: 13:46 rn 01/06 14:11 Order name: CONS Pharmacy Consult EDMS Administered Medications: Discontinued: NS 0.9% 1000 ml IV at 1000 ml once 12:25 Drug: NS 0.9% 1000 ml Route: IV; Rate: 1000 ml; Site: left antecubital; iw 12:40 Drug: Keppra 1000 mg Route: IV; Rate: 1 calculated rate; Site: left antecubital; sg 13:07 Drug: Tylenol Suppository 650 mg Route: IN; iw 14:00 Follow up: Response: No adverse reaction; Temperature is decreased sg 13:07 Drug: NS 0.9% (30 ml/kg) 30 ml/kg Route: IV; Rate: bolus; Site: left antecubital; iw 14:31 Follow up: Response: No adverse reaction; IV Status: Completed infusion; IV Intake: sg 2500ml 13:15 Drug: Zosyn 4.5 grams Route: IVPB; Infused Over: 60 mins; Site: left hand; sg 14:30 Follow up: Response: No adverse reaction; IV Status: Completed infusion sg Point of Care Testing: Blood Glucose: 12:25 Blood Glucose: 89 mg/dL; sg Ranges: Critical Glucose Levels:Adult <50 mg/dl or >400 mg/dl <40 mg/dl or >180 mg/dl Disposition: 01/06/19 13:43 Hospitalization ordered by Marilin Cabrera for Inpatient Admission. Preliminary diagnosis are Epileptic seizures related to external causes, not intractable, with status epilepticus, Acidosis, Altered mental status, unspecified, Dehydration. - Bed requested for Intensive Care Unit. - Status is Inpatient Admission. jb1 - Condition is Fair. - Problem is new. - Symptoms have improved. UTI on Admission? No Critical care time excluding procedures: 13:41 Critical care time: Bedside Care: 25 minutes, Consultation: 5 minutes. Total time: 30 rn minutes Signatures: Dispatcher [employer] IMTIAZ Mike Angelo [email or web address] Nancy Marshall Steven, RN RN sg Williams, Irene, RN RN Derrick Wyman MD MD journeyman wireman: (The following items were deleted from the chart) 13:01 12:27 Constitutional: Thin male, no seizure activity, breathing spontaneously but with rn decreased LOC. Head/Face: Normocephalic, atraumatic. rn 14:35 13:43 Hospitalization Ordered by Marilin Cabrera MD for Inpatient Admission. Preliminary bd diagnosis is Epileptic seizures related to external causes, not intractable, with status epilepticus; Acidosis; Altered mental status, unspecified; Dehydration. Bed requested for Intensive Care Unit. Status is Inpatient Admission. Condition is Fair. Problem is new. Symptoms have improved. UTI on Admission? No. rn 15:33 14:35 01/06/2019 13:43 Hospitalization Ordered by Marilin Cabrera MD for Inpatient jb1 Admission. Preliminary diagnosis is Epileptic seizures related to external causes, not intractable, with status epilepticus; Acidosis; Altered mental status, unspecified; Dehydration. Bed requested for Intensive Care Unit. Status is Inpatient Admission. Condition is Fair. Problem is new. Symptoms have improved. UTI on Admission? No. bd
[2019-01-06 14:41] LABS: Arterial Blood Carboxyhemoglob 0.4 % (0-1.5); Blood Gas Oxyhemoglobin 96.4 % (94-97); Blood O2 Saturation 97.6 % (92-98.5)
[2019-01-06] MEDS ORDERED: VANCOMYCIN 1.25 GM in NA CHLORIDE 0.9% 250 ML IVPB SCH (15:00)
[2019-01-06] MEDS: OSELTAMIVIR 75 MG CAP PO SCH ×2 (15:00→20:21)
[2019-01-06] MEDS ORDERED: LORazepam 2 MG/ML VIAL IV PRN (15:07)
[2019-01-06] MEDS ORDERED: SODIUM CHLORIDE 0.9% 10ML INJ IV PRN (15:07)
[2019-01-06] MEDS ORDERED: VANCOMYCIN 1 GM/VIAL IVPB ONE (15:07)
[2019-01-06 15:15] LABS: Urine Bacteria <20 /HPF (NONE SEEN); Urine RBC 20-50 /HPF (NONE SEEN)
[2019-01-06 15:16] LABS: Urine Culture Reflex Order NOT NEEDED
[2019-01-06] MEDS ORDERED: NA CHLORIDE 0.9% 500 ML IV ONE (16:00)
[2019-01-06] MEDS: D5W 1,000 ML with NA BICARB 8.4% 100 MEQ IV SCH ×2 (16:35)
--- NOTE | 2019-01-06 16:55 | EKG ---
Test Date: 2019-01-06 Test Time: 13:27:07 Novelty Twister Tender: UNIQUE MEASUREMENT RESULTS: Intervals: Rate: 124 UT: 154 QRSD: 78 QT: 312 QTc: 448 [place]: P: 62 UT: 154 QRS: 67 T: -16 INTERPRETIVE STATEMENTS: Sinus tachycardia Nonspecific ST and T wave abnormality Abnormal ECG Compared to ECG 09/10/2018 08:09:52 ST (T wave) deviation now present Sinus rhythm no longer present Electronically Signed On 01-06-19 16:54:25 CDT by Gildardo Valerio
[2019-01-06] MEDS ORDERED: VANCOMYCIN 500 MG in NA CHLORIDE 0.9% 100 ML IVPB ONE (17:00)
[2019-01-06] MEDS: levETIRAcetam 500 MG in NA CHLORIDE 0.9% 100 ML IV SCH (20:20)
[2019-01-06] MEDS ORDERED: DULOXETINE 20 MG CAP ONE (20:44)
[2019-01-06] MEDS: DULOXETINE 30 MG CAP PO SCH (20:48)
[2019-01-06] MEDS ORDERED: DIVALPROEX NA 125 MG CAP PO SCH (21:00)
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
[2019-01-07] MEDS: D5W 1,000 ML with NA BICARB 8.4% 100 MEQ IV SCH ×2 (02:14)
[2019-01-07 05:38] LABS: Absolute Lymphocytes (CBC) 1.3 K/uL (0.7-4.9); Basophils % 0.2 % (0-1.3); Hematocrit 37.1 % (39.6-49.0); Lymphocytes % 17.9 % (15.3-44.8); MPV 7.7 fL (7.6-11.3); RBC Red Blood Cell Count 4.13 M/uL (4.33-5.43)
[2019-01-07 05:54] LABS: ALT/SGPT 33 U/L (12-78); AST/SGOT 33 U/L (15-37); Albumin 3.3 g/dL (3.4-5.0); Alkaline Phosphatase 80 U/L (45-117); BUN Blood Urea Nitrogen 4 mg/dL (7-18); Bicarbonate 27 mmol/L (21-32); Bilirubin Total 0.7 mg/dL (0.2-1.0); Glucose Level 93 mg/dL (74-106); Protein, Total 6.6 g/dL (6.4-8.2); Sodium Level 138 mmol/L (136-145)
[2019-01-07 06:49] LABS: Blood Morphology Comment NOT SEEN (NOT SEEN); Platelet Estimate ADEQ; Urine White Blood Cell Casts OK
[2019-01-07] MEDS: DULOXETINE 30 MG CAP PO SCH (09:00)
[2019-01-07] MEDS ORDERED: VANCOMYCIN 1.25 GM in NA CHLORIDE 0.9% 250 ML IVPB SCH (09:00)
[2019-01-07] MEDS: OSELTAMIVIR 75 MG CAP PO SCH ×2 (09:58→20:42)
[2019-01-07] MEDS: ASPIRIN 325 MG TAB PO SCH (09:58)
[2019-01-07] MEDS: levETIRAcetam 500 MG in NA CHLORIDE 0.9% 100 ML IV SCH ×2 (09:59→20:42)
[2019-01-07] MEDS: POLYETHYL GLY 3350 17 GM/DOSE PO SCH (09:59)
[2019-01-07] MEDS: SENOSIDES 8.6 MG TAB PO SCH (10:00)
[2019-01-07] MEDS ORDERED: CODEINE 30MG/APAP 300MG TAB PO PRN (10:17)
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
[2019-01-07] MEDS ORDERED: NA CHLORIDE 0.9% 1,000 ML IV SCH (11:00)
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
[2019-01-07] MEDS: DULOXETINE 20 MG CAP PO SCH ×2 (11:59→20:42)
[2019-01-07] MEDS ORDERED: LORazepam 2 MG/ML VIAL ONE (12:46)
[2019-01-07] MEDS ORDERED: VALPROATE SODIUM INJ 1,000 MG in NA CHLORIDE 0.9% 100 ML IV ONE (12:50)
[2019-01-07] MEDS ORDERED: LORazepam 2 MG/ML VIAL IV PRN (12:54)
--- NOTE | 2019-01-07 13:02 | P.PN ---
Date of Service: 01/07/19 Called by nurse due to change in mental status. Patient seen and examined with Dr. Reynaga. Patient seems to be having focused seizures as evidenced by non responsiveness, version and loss of visual threat on exam. seizure lasting <30 secs. Ativan 1mg IV x1 Schedule 0.5mg ativan as pt is on PO at long-term Depakote loading dose x1 NPO Change keprra back to IV Adjust IVfs
[2019-01-07] MEDS: NA CHLORIDE 0.9% 1,000 ML IV SCH (13:05)
[2019-01-07] MEDS ORDERED: PANTOPRAZOLE 40 MG INJ IVP SCH (16:00)
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
--- NOTE | 2019-01-07 18:59 | RAD REPORT ---
EXAM DESCRIPTION: MRI - Brain Wo Cont - 01/07/2019 6:41 pm CLINICAL HISTORY: Alteration of awareness/confusion COMPARISON: January 06, [address] TECHNIQUE: Axial, sagittal, and coronal magnetic images of the brain were obtained. Contrast was not requested FINDINGS: Images are degraded by patient motion artifact. Abnormal signal within the right frontal lobe probably representing an old infarction. Diffuse cerebral atrophy is seen. Diffusion-weighted/ADC mapping does not reveal evidence of acute infarction. An extra-axial fluid collection is not present The sinuses and mastoids are clear. IMPRESSION: No acute intracranial abnormality noted
[2019-01-07] MEDS: LORazepam 2 MG/ML VIAL IV SCH (20:42)
[2019-01-07] MEDS: VALPROATE SODIUM INJ 500 MG in NA CHLORIDE 0.9% 100 ML IV SCH (20:43)
[2019-01-07] MEDS ORDERED: levETIRAcetam 500 MG TAB PO SCH (21:00)
[2019-01-07] MEDS ORDERED: LORAZEPAM 1 MG TABLET PO SCH (21:00)
[2019-01-08] MEDS: NA CHLORIDE 0.9% 1,000 ML IV SCH ×2 (03:32→09:00)
[2019-01-08 05:37] LABS: Absolute Lymphocytes (CBC) 1.4 K/uL (0.7-4.9); Basophils % 0.5 % (0-1.3); Hematocrit 35.6 % (39.6-49.0); Lymphocytes % 25.2 % (15.3-44.8); MPV 7.3 fL (7.6-11.3); RBC Red Blood Cell Count 3.87 M/uL (4.33-5.43)
[2019-01-08 05:58] LABS: ALT/SGPT 25 U/L (12-78); AST/SGOT 23 U/L (15-37); Albumin 2.9 g/dL (3.4-5.0); Alkaline Phosphatase 72 U/L (45-117); BUN Blood Urea Nitrogen 6 mg/dL (7-18); Bicarbonate 24 mmol/L (21-32); Bilirubin Total 0.7 mg/dL (0.2-1.0); Glucose Level 76 mg/dL (74-106); Protein, Total 5.8 g/dL (6.4-8.2); Sodium Level 139 mmol/L (136-145)
[2019-01-08] MEDS: OSELTAMIVIR 75 MG CAP PO SCH ×2 (09:12→20:13)
[2019-01-08] MEDS: VALPROATE SODIUM INJ 500 MG in NA CHLORIDE 0.9% 100 ML IV SCH ×2 (09:12→20:12)
[2019-01-08] MEDS: levETIRAcetam 500 MG in NA CHLORIDE 0.9% 100 ML IV SCH ×2 (09:12→20:13)
[2019-01-08] MEDS: LORazepam 2 MG/ML VIAL IV SCH ×2 (09:12→20:12)
[2019-01-08] MEDS: ASPIRIN 325 MG TAB PO SCH (09:12)
[2019-01-08] MEDS: POLYETHYL GLY 3350 17 GM/DOSE PO SCH (09:12)
[2019-01-08] MEDS: FAMOTIDINE 20 MG TAB PO SCH (09:14)
[2019-01-08] MEDS: DULOXETINE 20 MG CAP PO SCH ×2 (10:16→20:13)
[2019-01-08] MEDS: ENOXAPARIN 40 MG/0.4 ML SQ SCH (10:16)
[2019-01-08] MEDS: SENOSIDES 8.6 MG TAB PO SCH (10:16)
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
--- NOTE | 2019-01-08 13:49 | RAD REPORT ---
EXAM DESCRIPTION: RAD - Abdomen 1 View (KUB) - 01/08/2019 1:33 pm CLINICAL HISTORY: Dobhoff tube placement COMPARISON: No comparisons FINDINGS: Feeding tube has been placed. Tip is in the proximal portion of the decompressed stomach.
--- NOTE | 2019-01-08 15:55 | RAD REPORT ---
EXAM DESCRIPTION: RAD - Abdomen 1 View (KUB) - 01/08/2019 3:33 pm CLINICAL HISTORY: Dobhoff tube placement COMPARISON: KUB January 08 FINDINGS: The feeding tube has been advanced further. Tip is in the midbody of the stomach.
[2019-01-08] MEDS: D5 0.45 NS 1,000 ML IV SCH (16:23)
[2019-01-09 05:47] LABS: Basophils % 0.6 % (0-1.3); Hematocrit 37.3 % (39.6-49.0); Lymphocytes % 26.1 % (15.3-44.8); MPV 7.6 fL (7.6-11.3); RBC Red Blood Cell Count 4.16 M/uL (4.33-5.43)
[2019-01-09] MEDS: D5 0.45 NS 1,000 ML IV SCH ×2 (06:05→18:18)
[2019-01-09 06:06] VITALS: BMI 23.7
[2019-01-09 06:10] LABS: ALT/SGPT 25 U/L (12-78); AST/SGOT 23 U/L (15-37); Albumin 3.2 g/dL (3.4-5.0); Alkaline Phosphatase 85 U/L (45-117); BUN Blood Urea Nitrogen 5 mg/dL (7-18); Bicarbonate 24 mmol/L (21-32); Bilirubin Total 0.8 mg/dL (0.2-1.0); Glucose Level 85 mg/dL (74-106); Potassium 3.9 mmol/L (3.5-5.1); Protein, Total 6.6 g/dL (6.4-8.2); Sodium Level 135 mmol/L (136-145)
[2019-01-09] MEDS: LORazepam 2 MG/ML VIAL IV SCH (09:00)
[2019-01-09] MEDS: levETIRAcetam 500 MG in NA CHLORIDE 0.9% 100 ML IV SCH ×2 (09:00→20:27)
[2019-01-09] MEDS: VALPROATE SODIUM INJ 500 MG in NA CHLORIDE 0.9% 100 ML IV SCH ×2 (09:00→20:27)
[2019-01-09] MEDS: DULOXETINE 20 MG CAP PO SCH ×2 (09:29→20:27)
[2019-01-09] MEDS: ASPIRIN 325 MG TAB PO SCH (09:29)
[2019-01-09] MEDS: ENOXAPARIN 40 MG/0.4 ML SQ SCH (09:30)
[2019-01-09] MEDS: FAMOTIDINE 20 MG TAB PO SCH (09:30)
[2019-01-09] MEDS: SENOSIDES 8.6 MG TAB PO SCH (09:30)
[2019-01-09] MEDS: OSELTAMIVIR 75 MG CAP PO SCH ×2 (09:30→20:27)
[2019-01-09] MEDS: POLYETHYL GLY 3350 17 GM/DOSE PO SCH (09:30)
--- NOTE | 2019-01-09 13:07 | RAD REPORT ---
EXAM DESCRIPTION: RAD - Chest Single View - 01/09/2019 12:28 pm CLINICAL HISTORY: PNA Chest pain. COMPARISON: Abdomen 1 View (KUB) dated 01/08/2019; Abdomen 1 View (KUB) dated 01/08/2019; Chest Single V iew dated 01/06/2019; Chest Pa And Lat (2 Views) dated 09/10/2018; Brain Wo Cont dated 01/07/2019; Abdomen Pelvis Wo Contrast dated 01/06/2019 FINDINGS: Portable technique limits examination quality. The lungs are grossly clear. The heart is normal in size. No displaced fractures. IMPRESSION: No acute intrathoracic process suspected.
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
[2019-01-10 04:22] LABS: Absolute Lymphocytes (CBC) 1.1 K/uL (0.7-4.9); Basophils % 0.4 % (0-1.3); Hematocrit 36.8 % (39.6-49.0); Lymphocytes % 21.7 % (15.3-44.8); MPV 7.8 fL (7.6-11.3); RBC Red Blood Cell Count 4.13 M/uL (4.33-5.43)
[2019-01-10 04:53] LABS: ALT/SGPT 27 U/L (12-78); AST/SGOT 39 U/L (15-37); Albumin 3.3 g/dL (3.4-5.0); Alkaline Phosphatase 86 U/L (45-117); BUN Blood Urea Nitrogen 4 mg/dL (7-18); Bicarbonate 24 mmol/L (21-32); Bilirubin Total 0.7 mg/dL (0.2-1.0); Glucose Level 80 mg/dL (74-106); Potassium 3.5 mmol/L (3.5-5.1); Protein, Total 6.7 g/dL (6.4-8.2); Sodium Level 133 mmol/L (136-145)
[2019-01-10] MEDS: D5 0.45 NS 1,000 ML IV SCH (08:00)
[2019-01-10] MEDS: levETIRAcetam 500 MG in NA CHLORIDE 0.9% 100 ML IV SCH (09:00)
[2019-01-10] MEDS: LORazepam 2 MG/ML VIAL IV SCH ×2 (09:00→10:04)
[2019-01-10] MEDS: VALPROATE SODIUM INJ 500 MG in NA CHLORIDE 0.9% 100 ML IV SCH (09:00)
[2019-01-10] MEDS: POLYETHYL GLY 3350 17 GM/DOSE PO SCH (09:00)
--- NOTE | 2019-01-10 09:47 | EEG ---
CHART: [id number] TEST ID#: [id number] DATE OF STUDY: 01-07-2019 THE EEG WAS RECORDED PORTABLE IN THE ICU ON A 17 CHANNEL MACHINE. ELECTRODES WERE APPLIED IN THE USUAL MANNER USING THE INTERNATIONAL 10-20 SYSTEM. THE WAKING BACKGROUND RHYTHM IN THIS RECORD CONSISTS OF POORLY DEVELOPED AND POORLY ORGANIZED WAVES OF 7-8 HZ., IN A WIDE DISTRIBUTION WHICH ATTENUATE POORLY WITH EYE OPENING. MODERATE VOLTAGE 4-6 HZ MIXED WITH OCCASIONAL 1.5-3 HZ ACTIVITY IS EXPRESSED IN THE FRONTAL AND CENTRAL REGIONS. THERE ARE NO FOCAL OR LATERALIZING FEATURES. NO EPILEPTIFORM ACTIVITY APPEARS. SLEEP DID NOT OCCUR. HYPERVENTILATION WAS NOT PERFORMED. PHOTIC STIMULATION PRODUCED NO DRIVING BILATERALLY. IMPRESSION: THIS IS A MODERATELY ABNORMAL EEG DUE TO A MODERATELY SLOW BACKGROUND. THIS IS A NON-SPECIFIC FINDING INDICATING THE PRESENCE OF A MODERATE DIFFUSE DISTURBANCE IN CEREBRAL FUNCTION. NO EPILEPTIFORM ACTIVITY OCCURRED DURING THIS RECORDING.
[2019-01-10] MEDS: SENOSIDES 8.6 MG TAB PO SCH (10:04)
[2019-01-10] MEDS: ENOXAPARIN 40 MG/0.4 ML SQ SCH (10:05)
[2019-01-10] MEDS: ASPIRIN 325 MG TAB PO SCH (10:05)
[2019-01-10] MEDS: DULOXETINE 20 MG CAP PO SCH (10:05)
[2019-01-10] MEDS: OSELTAMIVIR 75 MG CAP PO SCH (10:05)
[2019-01-10] MEDS: FAMOTIDINE 20 MG TAB PO SCH (10:05)
[2019-01-10] MEDS ORDERED: DIVALPROEX DR 500MG TAB PO SCH (11:36)
[2019-01-10] MEDS ORDERED: levETIRAcetam 500 MG TAB PO SCH (11:37)
[2019-01-10 12:05] VITALS: BP 120/82; TEMP 97.9
[2019-01-10 16:08] VITALS: O2SAT 97
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
[2019-01-11] MEDS ORDERED: LORAZEPAM 0.5 MG TABLET PO SCH (11:37)
== END 2019-01-10 16:11 | DRG 100 ==
LOC: ER 12:05 → ERHOLD 14:00 → 3RD-ICU 15:01 → 4TH 01-09 11:53
PROVIDERS: ADMIT Family Medicine; ATTEND Family Medicine
DX: G40.901 Epilepsy, unspecified, not intractable, with status epilepticus (principal); A41.9 Sepsis, unspecified organism; R65.20 Severe sepsis without septic shock; N17.9 Acute kidney failure, unspecified; E87.2 Acidosis; M62.82 Rhabdomyolysis; E87.1 Hypo-osmolality and hyponatremia; G81.91 Hemiplegia, unspecified affecting right dominant side; J11.1 Influenza due to unidentified influenza virus with other respiratory manifestations; Z87.820 Personal history of traumatic brain injury; K21.9 Gastro-esophageal reflux disease without esophagitis; R13.10 Dysphagia, unspecified
CPT/HCPCS: 36415; 70450; 70551; 71045; 74018; 74176; 80048; 80053; 80076; 80164; 80177; 80202; 81003; 81015; 82550; 82805; 82962; 83605; 83690; 84145; 85025; 87040; 87086; 87088; 87804; 92610; 93005; 94760; 94762; 95816; 96365; 96368; 96375; 99285; C9113; J1650; J1953; J7030

== ENCOUNTER 2019-01-23 19:03 | Emergency (ER) | payer OTHER ==
--- OUTSIDE RECORDS SUMMARY | 2019-01-23 19:13 | XMS REPORT | Continuity of Care Document ---
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 Duration: 2 hr, Stop date: 12/06/13 5:57:00 Magnesium Sulfate 2 gm, 50 mL, Inactive [facility] Route: IVPB2013 Medical Drug form: INJ, Center ONCE, Dosing Weight 66, kg, Total dose=2 gm, Start date: 12/06/13 3:10:00, Duration: 1 doses or times, Stop date: 12/06/13 3:10:00 Dilantin 100 mg, 2 mL, No Longer [facility] Route: IV, Drug Active 2013 Medical form: INJ, Q8H, Center Start date: 12/05/13 12:00:00, Stop date: 12/08/13 18:15:00Notes: (Same as: Dilantin) Do not infuse greater than 50 mg/min. potassium 500 mg, 2 tab, No Longer [facility] phosphate-sodium Route: NG, Drug Active 2013 Medical phosphate 250 mg-45 Form: TAB, Q6H, Center mg-298 mg oral Start date: tablet 12/05/13 12:00:00, Duration: 3 day, Stop date: 12/08/13 6:00:00Notes: Non-Fomrulary Drug. (Same as: K-Phos) Neutra-Phos 2 pkt, Route: Inactive [facility] NG, Dosing 2013 Medical Weight 66, kg, Center Q6H, Start date: 12/05/13 12:00:00, Duration: 30 day, Stop date: 01/04/14 6:00:00 Lovenox 30 mg, 0.3 mL, No Longer [facility] Route: SUB-Q, Active 2013 Medical Drug form: INJ, Center Q12H, Dosing Weight 66, kg, Priority: NOW, Start date: 12/05/13 11:07:00, Duration: 30 day, Stop date: 02/03/14 4:00:00Notes: (Same as: Lovenox) Potassium Chloride 20 mEq, 15 mL, No Longer [facility] 1.33 MEQ/ML Oral Route: PO, Drug Active 2013 Medical Solution form: LIQ, Center Daily, Dosing Weight 66, kg, Start date: 12/05/13 9:00:00, Duration: 30 day, Stop date: 01/03/14 9:00:00 Aspirin / Calcium 325 mg, 1 tab, No Longer [facility] Carbonate Route: PO, Drug Active 2013 Medical form: TAB, Center Daily, Dosing Weight 66, kg, Start date: 12/05/13 9:00:00, Duration: 30 day, Stop date: 02/02/14 9:00:00Notes: Take with food. Propranolol 15 mg, 1.5 tab, No Longer [facility] Route: PO, Drug Active 2013 Medical form: TAB, Q6H, Center Dosing Weight 66, kg, Start date: 12/04/13 12:00:00, Stop date: 01/03/14 6:00:00Notes: Give with food. (Same as: Inderal) Potassium Chloride 20 mEq, 15 mL, Inactive [facility] 1.33 MEQ/ML Oral Route: PO, Drug 2013 Medical Solution form: LIQ, Center ONCE, Dosing Weight 66, kg, Start date: 12/04/13 10:36:00, Stop date: 12/04/13 10:36:00Notes: (Same as: Potassium Chloride) Haldol 2 mg, 1 tab, No Longer [facility] Route: PO, Drug Active 2013 Medical form: TAB, TID, Center Dosing Weight 66, kg, PRN Agitation, Start date: 12/04/13 10:30:00, Duration: 30 day, Stop date: 01/03/14 10:29:00Notes: (Same as: Haldol) Aspirin / Calcium 325 mg, 1 tab, Inactive [facility] Carbonate Route: NG, Drug 2013 Medical form: TAB, Center Daily, Dosing Weight 66, kg, Start date: 12/04/13 9:00:00, Duration: 30 day, Stop date: 01/02/14 9:00:00Notes: Take with food. Dilantin 300 mg, 3 cap, No Longer [facility] Route: PO, Drug Active 2013 Medical form: ERCAP, Center Bedtime, Dosing Weight 81.818, kg, Start date: 12/03/13 21:00:00, Duration: 30 day, Stop date: 01/01/14 21:00:00Notes: (Same as: Dilantin) Do not open, crush, or chew. Reglan 10 mg, 10 mL, Inactive [facility] Route: NG, Drug 2013 Medical form: SYRP, Center ONCE, Dosing Weight 66, kg, Start date: 12/03/13 17:20:00, Stop date: 12/03/13 17:20:00Notes: (Same as: Reglan) Take 30 min before meals Lyrica 50 mg, 1 cap, No Longer [facility] Route: PO, Drug Active 2013 Medical form: CAP, Q8H, Center Dosing Weight 66, kg, Start date: 12/03/13 16:00:00, Duration: 30 day, Stop date: 01/02/14 8:00:00Notes: Same as Lyrica aspirin 325 mg 325 mg, 1 tab, Inactive [facility] tablet Route: PO, Drug 2013 Medical form: TAB, Center Daily, Dosing Weight 66, kg, Priority: NOW, Start date: 12/03/13 14:50:00, Duration: 30 day, Stop date: 01/02/14 9:00:00Notes: Take with food. Bisacodyl 10 mg, 2 tab, No Longer [place] Route: PO, Drug Active 2013 Medical form: ECTAB, Center Daily, Dosing Weight 81.818, kg, Start date: 12/03/13 9:00:00, Duration: 30 day, Stop date: 01/01/14 9:00:00Notes: (Same As: Dulcolax, Correctol) (Do Not Crush) "Do Not Crush" docusate sodium 100 mg, 1 cap, Inactive [place] Route: PO, Drug 2013 Medical form: CAP, BID, Center Dosing Weight 81.818, kg, Start date: 12/03/13 9:00:00, Duration: 30 day, Stop date: 01/01/14 17:00:00Notes: (Same as: Colace) (Do Not Crush) Celebrex 200 mg, 2 cap, No Longer [place] Route: PO, Drug Active 2013 Medical form: CAP, Center Q12H, Dosing Weight 66, kg, Start date: 12/03/13 9:00:00, Duration: 30 day, Stop date: 01/01/14 21:00:00Notes: NSAID. Please check indication. Not for seizure. (Same As: CeleBREX ) Famotidine 20 mg, 2 mL, No Longer [place] Route: IV, Drug Active 2013 Medical form: INJ, Center Q12H, Dosing Weight 81.818, kg, Start date: 12/03/13 9:00:00, Duration: 30 day, Stop date: 01/01/14 21:00:00Notes: (Same as: Pepcid) Docusate 100 mg, 10 mL, No Longer [place] Route: NG, Drug Active 2013 Medical form: LIQ, Center Q12H, Dosing Weight 66, kg, Start date: 12/03/13 8:58:00, Stop date: 02/01/14 9:00:00Notes: (Same as: Colace) Magnesium Sulfate 4 gm, 100 mL, Inactive [place] Route: IV, Drug 2013 Medical form: INJ, Center ONCE, Dosing Weight 66, kg, Start date: 12/03/13 8:49:00, Stop date: 12/03/13 8:49:00 Tylenol 1,000 mg, 2 No Longer [facility] tab, Route: PO, Active 2013 Medical Drug form: TAB, Center Q6H, Dosing Weight 81.818, kg, Start date: 12/03/13 6:00:00, Duration: 30 day, Stop date: 01/02/14 0:00:00Notes: Max acetaminophen 4000 mg/day (4 gm/day). (Same as: Tylenol Extra Strength) Oxycodone 5 mg, 1 tab, No Longer [facility] Hydrochloride 5 MG Route: PO, Drug Active 2013 Medical Oral Tablet form: TAB, Q6H, Center Dosing Weight 81.818, kg, Start date: 12/03/13 6:00:00, Duration: 30 day, Stop date: 01/02/14 0:00:00Notes: (Same as: Roxicodone) NS 1,000 mL 1,000 mL, Rate: No Longer [facility] 100 ml/hr, Active 2013 Medical Infuse over: 10 Center hr, Route: IV, Dosing Weight 81.818 kg, Total Volume: 1,000, Start date: 12/03/13 4:00:00, Duration: 30 day, Stop date: 01/02/14 3:59:00 Oxycodone 5 mg, 1 tab, No Longer [facility] Hydrochloride 5 MG Route: NG, Drug Active 2013 Medical Oral Tablet form: TAB, Q4H, Center Dosing Weight 81.818, kg, PRN Pain Score 6-10, Start date: 12/03/13 3:43:00, Stop date: 01/02/14 3:42:00Notes: (Same as: Roxicodone) Dextrose 50% 12.5 gm, 25 mL, No Longer [facility] Syringe Route: IVP, Active 2013 Medical Drug [...] pregabalin 100 mg, 1 cap, No Longer [place] Route: PO, Drug Active 2013 Medical form: CAP, Q8H, Center Dosing Weight 81.818, kg, Priority: NOW, Start date: 12/02/13 23:53:00, Duration: 48 hr, Stop date: 12/04/13 16:00:00Notes: (Same as: Lyrica) celecoxib 200 mg, 2 cap, No Longer [facility] Route: PO, Drug Active 2013 Medical form: CAP, Center Q12H, Dosing Weight 81.818, kg, Priority: NOW, Start date: 12/02/13 23:53:00, Duration: 48 hr, Stop date: 12/04/13 21:00:00Notes: NSAID. Please check indication. Not for seizure. (Same As: CeleBREX ) fosphenytoin 1,000 mg, 20 No Longer [place] mL, Route: Active 2013 Medical IVPB, ONCE, Center Dosing Weight 81.818, kg, Priority: STAT, Start date: 12/02/13 23:47:00, Stop date: 12/02/13 23:47:00, Loading doseSpecial Instructions: Loading doseNotes: (Same as: Cerebyx) Stated mg=mgPE. Refrigerate ANTICONVULSANT* * Do not confuse with celebrex. Propofol 10 MG/ML 1,000 mg, 100 No Longer [place] Injectable mL, Rate: Active 2013 Medical Suspension [...] being intubated (unless the nurse is a [employer]). Same as: Diprivan Cefazolin 2 gm, Route: Inactive [facility] IVPB, ONCE, 2013 Medical Dosing Weight Center 81.818, kg, Priority: STAT, Start date: 12/02/13 23:29:00, Stop date: 12/02/13 23:29:00 iodixanol 100 mL, Route: Inactive 12/03/ [facility] IVP, Drug Form: 2013 Medical SOLN, Dosing Center Weight 81.818, kg, ONCALL, STAT, Start date: 12/02/13 23:09:00, Duration: 1 doses or times, Dose=2.2ml/kg, Max noyp=[id number] -- "To be infused by Radiology Staff ONLY"Special Instructions: Dose=2.2ml/kg, Max pegk=[id number] -- "To be infused by Radiology Staff ONLY" Saline Flush 0.9% 5 mL, Route: No Longer 12/03/ [facility] IVP, Drug Form: Active 2013 Medical INJ, kg, PRN, Center PRN Line Flush, Administer at least once every 12 hours, Start date: 12/02/13 22:53:00, Duration: 30 day, Stop date: 01/01/14 22:52:00Notes: (Same as: BD Posiflush) Allergies, Adverse Reactions, Alerts Substance Category Reaction Severity Reaction Status Date Comments Source type Reported Thiopental Assertion anphlyatic Drug Active [facility] Sodium allergy [facility] Immunizations Immunization Date Given Site Status Last Comments Source Updated diphtheria/pertus 12/03/2013 Left completed [facility] sis, acel/tetanus deltoid [facility] adult [facility], [facility], [facility] [place],[facility] Results Order Name Results Value Reference Date Interpretation Comments Source Range CHEM PANEL eGFR 123 07/22 Result Sugar /2015 Comment: The [facility] eGFR is calculated using the CKD-EPI [...] Glucose Lvl 80 70 - 99 07/22 [facility] CHEM PANEL Creatinine 0.55 0.50 - 07/22 Sugar Lvl 1.40 [facility] CHEM PANEL BUN 8 7 - 22 07/22 [facility] CHEM PANEL CO2 28 24 - 32 07/22 [facility] CHEM PANEL Calcium Lvl 8.7 8.5 - 10.5 07/22 [facility] CHEM PANEL AGAP 11.6 10.0 - 07/22 [place] 20.0 [facility] CHEM PANEL Chloride Lvl 95 95 - 109 07/22 [facility] CHEM PANEL Sodium Lvl 130 135 - 145 07/22 [facility] CHEM PANEL Potassium Lvl 4.6 3.5 - 5.1 07/22 [facility] ELECTROLYTE CO2 21 24 - 32 05/24 [facility] S /2016 [facility] ELECTROLYTE Chloride Lvl 99 95 - 109 05/24 [facility] S /2015 [facility] ELECTROLYTE Sodium Lvl 131 135 - 145 05/24 [facility] S /2015 [facility] ELECTROLYTE Potassium Lvl 4.7 3.5 - 5.1 05/24 [facility] S /2015 [facility] ELECTROLYTE AGAP 15.7 10.0 - 05/24 [facility] S . [facility] ELECTROLYTE eGFR 122 05/24 [facility] Comment: The Medical eGFR is Center calculated [...] Calcium Lvl 8.8 8.5 - 10.5 05/24 [facility] ELECTROLYTE Creatinine 0.56 0.50 - 05/24 [facility] S Lvl 1.40 /2015 [facility] ELECTROLYTE BUN 9 7 - 22 05/24 [facility] ELECTROLYTE Glucose Lvl 72 70 - 99 05/24 [facility] ELECTROLYTE AGAP 13.0 10.0 - 02/20 [facility] [...] values reflect the clinical guidelines
of the [place] [employer]. HEMATOLOGY MPV 9.4 7.4 - [...] values reflect the clinical guidelines
of the [place] [employer]. CHEM PANEL AGAP 11.2 10.0 [...] values reflect the clinical guidelines
of the [place] [employer]. CHEM PANEL BUN 17 7 [...] Hgb A1C <3.5 % <=5.6 % 01/25 [facility] CHEMISTRY IMMUNOLOGY Prealbumin 15.3 18.0 - 12/27 [facility] 45. [facility] IMMUNOLOGY C-REACTIVE 28.5 <=2.9 mg/L 12/27 [facility] CHEM PANEL eGFR 130 12/26 <sup>1</sup>R esult [...] Potassium Lvl 3.6 3.5 - 5.1 12/26 [facility] CHEM PANEL Sodium Lvl 139 135 - 145 12/26 [facility] CHEM PANEL CO2 28 24 - 32 12/26 [facility] CHEM PANEL Chloride Lvl 102 95 - 109 12/26 [facility] CHEM PANEL Calcium Lvl 8.5 8.5 - 10.5 12/26 [facility] CHEM PANEL Glucose Lvl 95 70 - 99 12/26 <sup>4</sup>I nterpretive Medical Data: Adult Center reference range values reflect the clinical guidelines
of the [place] [employer]. CHEM PANEL Creatinine 0.5 0.5 - 1.4 12/26 [facility] CHEM PANEL BUN 6 7 - 22 12/26 [facility] CHEM PANEL AGAP 12.6 10.0 - 12/26 20. [facility] CHEM PANEL Phosphorus 3.2 2.5 - 4.5 12/26 [facility] CHEM PANEL Magnesium Lvl 1.7 1.8 - 2.4 12/26 [facility] HEMATOLOGY Eosinophils # 0.4 0.0 - 0.5 12/26 [facility] HEMATOLOGY Lymphocytes # 1.2 1.0 - 5.5 12/26 [facility] HEMATOLOGY Basophils # 0.1 0.0 - 0.2 12/26 [facility] HEMATOLOGY Monocytes # 0.9 0.0 - 0.8 12/26 [facility] HEMATOLOGY Segs-Bands # 5.4 1.5 - 8.1 12/26 [facility] HEMATOLOGY Basophils 0.7 0.0 - 1.0 12/26 [facility] HEMATOLOGY Eosinophils 4.6 0.0 - 4.0 12/26 [facility] HEMATOLOGY Monocytes 11.7 2.0 - 12.0 12/26 [facility] HEMATOLOGY Lymphocytes 14.7 20.0 - 12/26 [place] 40.0 [facility] HEMATOLOGY Segs 68.3 45.0 - 12/26 75.0 [facility] HEMATOLOGY MPV 7.9 7.4 - 10.4 12/26 [facility] HEMATOLOGY Hgb 8.0 14.0 - 12/26 18.0 [facility] HEMATOLOGY RBC 2.58 4.70 - 12/26 [place] 6.10 [facility] HEMATOLOGY WBC 7.8 3.7 - 10.4 12/26 [facility] HEMATOLOGY MCH 31.2 27.0 - 12/26 [place] 31.0 [facility] HEMATOLOGY MCV 92.3 80.0 - 12/26 94.0 /2013 [facility] HEMATOLOGY Hct 23.8 42.0 - 12/26 [place] 54.0 /2013 [facility] HEMATOLOGY Platelet 455 133 - 450 12/26 [facility] HEMATOLOGY RDW 13.3 11.5 - 12/26 14.5 [facility] HEMATOLOGY MCHC 33.8 32.0 - 12/26 [place] 36.0 [facility] CHEM PANEL Phosphorus 3.6 2.5 - 4.5 12/25 [facility] CHEM PANEL Magnesium Lvl 2.0 1.8 - 2.4 12/25 [facility] CHEM PANEL Phosphorus 2.9 2.5 - 4.5 12/24 [facility] CHEM PANEL eGFR 121 12/24 <sup>2</sup>R esult [...] values reflect the clinical guidelines
of the [place] [employer]. CHEM PANEL BUN 9 7 - 22 12/24 [facility] CHEM PANEL Potassium Lvl 3.5 3.5 - 5.1 12/24 [facility] CHEM PANEL Chloride Lvl 108 95 - 109 12/24 [facility] CHEM PANEL CO2 25 24 - 32 12/24 [facility] CHEM PANEL Creatinine 0.6 0.5 - 1.4 12/24 [facility] CHEM PANEL Sodium Lvl 145 135 - 145 12/24 [facility] CHEM PANEL AGAP 15.5 10.0 - 12/24 20.0 [facility] CHEM PANEL Calcium Lvl 8.7 8.5 - 10.5 12/24 [facility] CHEM PANEL Magnesium Lvl 1.7 1.8 - 2.4 12/24 [facility] HEMATOLOGY Eosinophils # 0.3 0.0 - 0.5 12/24 [facility] HEMATOLOGY Lymphocytes # 1.2 1.0 - 5.5 12/24 [facility] HEMATOLOGY Monocytes # 1.0 0.0 - 0.8 12/24 [facility] HEMATOLOGY Basophils 0.4 0.0 - 1.0 12/24 [facility] HEMATOLOGY Eosinophils 2.7 0.0 - 4.0 12/24 [facility] HEMATOLOGY Segs-Bands # 8.8 1.5 - 8.1 12/24 [facility] HEMATOLOGY Segs 78.1 45.0 - 12/24 [place] 75.0 [facility] HEMATOLOGY Monocytes 8.5 2.0 - 12.0 12/24 [facility] HEMATOLOGY Lymphocytes 10.3 20.0 - 12/24 [place] 40.0 /2013 Medical [place] HEMATOLOGY MCV 94.1 80.0 - 12/24 [place] 94.0 [facility] HEMATOLOGY Hct 24.4 42.0 - 12/24 [place] 54.0 [facility] HEMATOLOGY Hgb 8.2 14.0 - 12/24 [place] 18.0 [facility] HEMATOLOGY WBC 11.3 3.7 - 10.4 12/24 [facility] HEMATOLOGY RBC 2.59 4.70 - 12/24 [place] 6.10 [facility] HEMATOLOGY MPV 7.5 7.4 - 10.4 12/24 [facility] HEMATOLOGY Platelet 488 133 - 450 12/24 [facility] HEMATOLOGY RDW 14.2 11.5 - 12/24 [place] 14.5 /2013 [facility] 33.[facility] 32.0 - 12/24 [place] 36.0 /2013 [facility] HEMATOLOGY [facility] 31.8 27.0 - 12/24 [place] 31.0 /2013 [facility] CARDIAC Troponin-T <0.010 0.000 - 12/23 [place] ENZYMES 0.100 /2013 [facility] CARDIAC Troponin-I <0.02 0.00 - 12/23 [place] ENZYMES 0.40 /2013 [facility] CARDIAC Total CK 509 12 - 191 12/23 [place] ENZYMES /2013 [facility] CARDIAC CK MB Index 0.5 0.0 - 2.5 12/23 [place] ENZYMES /2013 [facility] CARDIAC CK MB 2.3 0.5 - 3.6 12/23 [place] ENZYMES /2013 [facility] ELECTROLYTE AGAP 16.1 10.0 - 12/23 [place] S 20.0 /2013 [facility] ELECTROLYTE eGFR 121 12/23 <sup>3</sup>R esult Medical [...] values reflect the clinical guidelines
of the [place] [employer]. ELECTROLYTE BUN 10 7 - 22 12/23 [place] S [facility] ELECTROLYTE Creatinine 0.6 0.5 - 1.4 12/23 [facility] S Lvl /2013 [facility] ELECTROLYTE Chloride Lvl 109 95 - 109 12/23 [facility] ELECTROLYTE Calcium Lvl 8.3 8.5 - 10.5 12/23 [facility] ELECTROLYTE CO2 22 24 - 32 12/23 [facility] ELECTROLYTE Sodium Lvl 143 135 - 145 12/23 [facility] ELECTROLYTE Potassium Lvl 4.1 3.5 - 5.1 12/23 [facility] HEMATOLOGY Angle 82 64 - 80 12/23 [facility] HEMATOLOGY K-time 0.8 0.6 - 2.3 12/23 [facility] HEMATOLOGY Max Amp 78 52 - 71 12/23 [facility] HEMATOLOGY G-value 17.4 5.0 - 11.6 12/23 [facility] HEMATOLOGY Estimated % 1.2 0.0 - 7.5 12/23 [facility] HEMATOLOGY Rapid TEG Citrated 12/23 [facility] Sample Type [facility] Blood [facility] HEMATOLOGY ACT (TEG) 128 86 - 118 12/23 [facility] HEMATOLOGY R-time 0.8 0.4 - 0.7 12/23 [facility] HEMATOLOGY [place] 0.8 12/23 [facility] HEMATOLOGY MPV 7.2 7.4 - 10.4 12/23 [facility] HEMATOLOGY Hct 22.8 42.0 - 12/23 [place] 54.0 [facility] HEMATOLOGY MCHC 33.7 32.0 - 12/23 36.0 [facility] HEMATOLOGY RDW 13.9 11.5 - 12/23 [place] 14.5 [facility] HEMATOLOGY MCV 93.6 80.0 - 12/23 [place] 94.0 /2013 [facility] HEMATOLOGY MCH 31.5 27.0 - 12/23 [place] 31.0 [facility] HEMATOLOGY Platelet 543 133 - 450 12/23 [facility] HEMATOLOGY Hgb 7.7 14.0 - 12/23 [place] 18.0 [facility] HEMATOLOGY RBC 2.44 4.70 - 12/23 [place] 6.10 [facility] HEMATOLOGY WBC 15.1 3.7 - 10.4 12/23 [facility] HEMATOLOGY Lymphocytes 5.3 20.0 - 12/23 [place] 40.0 /2013 [facility] HEMATOLOGY Segs 87.4 45.0 - 08 [place] 75.0 [facility] HEMATOLOGY Lymphocytes # 0.8 1.0 - 5.5 12/23 [facility] HEMATOLOGY Eosinophils # 0.1 0.0 - 0.5 12/23 [facility] HEMATOLOGY Segs-Bands # 13.2 1.5 - 8.1 12/23 [facility] HEMATOLOGY Monocytes 6.3 2.0 - 12.0 12/23 [facility] HEMATOLOGY Basophils 0.3 0.0 - 1.0 12/23 [facility] HEMATOLOGY Monocytes # 0.9 0.0 - 0.8 12/23 [facility] HEMATOLOGY Eosinophils 0.7 0.0 - 4.0 12/23 [facility] BLOOD BANK ABO/Rh B NEG 12/23 [facility] BLOOD BANK Antibody Scrn Negative 12/23 [facility] RESULTS (12/23/13 8:00 AM) [facility] CHEM PANEL AST 59 0 - 37 12/21 [facility] CHEM PANEL Total Protein 6.0 6.4 - 8.4 12/21 [facility] CHEM PANEL Albumin Lvl 2.7 3.5 - 5.0 12/21 [facility] CHEM PANEL ALT 60 0 - 65 12/21 [facility] CHEM PANEL Alk Phos 179 39 - 136 12/21 [facility] CHEM PANEL Bili Total 0.7 0.2 - 1.3 12/21 [facility] CHEM PANEL A/G Ratio 0.8 0.7 - 1.6 12/21 [facility] CHEM PANEL Globulin 3.3 2.0 - 4.0 12/21 [facility] CHEM PANEL B/C Ratio 20 6 - 25 12/21 [facility] HEMATOLOGY Basophils # 0.1 0.0 - 0.2 12/21 [facility] BLOOD BANK Antibody Scrn Negative 12/20 [facility] RESULTS (12/20/13 11:10 AM) [facility] BLOOD BANK ABO/Rh B NEG 12/20 [facility] HEMATOLOGY Basophils # 0.1 0.0 - 0.2 12/20 [facility] CHEM PANEL ALT 66 0 - 65 12/19 [facility] CHEM PANEL AST 39 0 - 37 12/19 [facility] CHEM PANEL Total Protein 6.1 6.4 - 8.4 12/19 [facility] CHEM PANEL Alk Phos 200 39 - 136 12/19 [facility] CHEM PANEL Bili Total 0.6 0.2 - 1.3 12/19 [facility] CHEM PANEL Albumin Lvl 2.7 3.5 - 5.0 12/19 [facility] CHEM PANEL Bili Direct 0.1 0.0 - 0.3 12/19 [facility] CHEM PANEL A/G Ratio 0.8 0.7 - 1.6 12/19 [facility] CHEM PANEL Globulin 3.4 2.0 - 4.0 12/19 [facility] CHEM PANEL Bili Indirect 0.5 0.0 - 1.0 12/19 [facility] CHEM PANEL Bili Total 0.8 0.2 - 1.3 12/17 [facility] CHEM PANEL B/C Ratio 48 6 - 25 12/17 [facility] CHEM PANEL Total Protein 7.1 6.4 - 8.4 12/17 [facility] CHEM PANEL Alk Phos 263 39 - 136 12/17 [facility] CHEM PANEL AST 47 0 - 37 12/17 [facility] CHEM PANEL ALT 107 0 - 65 12/17 [facility] CHEM PANEL Albumin Lvl 2.9 3.5 - 5.0 12/17 [facility] CHEM PANEL Globulin 4.2 2.0 - 4.0 12/17 [facility] CHEM PANEL A/G Ratio 0.7 0.7 - 1.6 12/17 [facility] CHEM PANEL B/C Ratio 46 6 - 25 08/ [facility] PARATHYROID Ca Ion WB 1.09 1.05 - 08 [place] PROFILE 05.28 [facility] PARATHYROID Ca Norm WB 1.10 1.05 - 12/12 [place] PROFILE 05.28 [facility] PARATHYROID Ca Ion WB 1.13 1.05 - 12/11 [place] PROFILE 05.28 [facility] PARATHYROID Ca Norm WB 1.16 1.05 - 12/11 [facility] PROFILE . [facility] CHEM PANEL VITAMIN B1 121 78 - 185 12/10 <sup>7</sup>R [facility] (THIAMINE) [facility] WHOLE BLOOD Comment: Test Center Performed at:
[facility]<br/ >[id number] [facility]
[place] [address] Pastora Basurto MD, PhD ANEMIA Folate Lvl 28.5 >=3.0 12/10 [facility] STUDY ng/mL /2013 [facility] ANEMIA Vitamin B12 561 254 - 1320 12/10 [facility] STUDY Lvl /2013 [facility] THYROID TSH 3.090 0.360 - 12/10 [facility] PANEL 3.740 [facility] IMMUNOLOGY Prealbumin 14.8 18.0 - 12/10 [facility] 45.0 [facility] IMMUNOLOGY C-REACTIVE 236.0 <=2.9 mg/L 12/10 [facility] PROTEIN [facility] PARATHYROID Ca Norm WB 1.14 1.05 - 12/10 [facility] PROFILE 1. [facility] PARATHYROID Ca Ion WB 1.16 1.05 - 12/10 [facility] PROFILE 1. [facility] IMMUNOLOGY C-REACTIVE 88.6 <=2.9 mg/L 12/06 [facility] PROTEIN [facility] IMMUNOLOGY Prealbumin 14.9 18.0 - 12/06 [facility] 45.0 [facility] BACTERIAL - MRSA by PCR Positive 12/03 <sup>11</sup> [facility] SEROLOGY *ABN* Result Medical (12/03/13 4:38 AM) [...] by the Molecular Diagnostic Laboratory within the [facility]. The Molecular Diagnostic Laboratory is authorized under the Clinical Laboratory Improvement Amendment of 1988 (CLIA-88) to perform high complexity testing. HEMATOLOGY G-value 7.8 4.5 - 11.0 12/03 [facility] HEMATOLOGY Coag Index 2.2 -3.0-3.0 - 12/03 [facility] 3.0 [facility] HEMATOLOGY Max Amp 60.9 50.0 - 12/03 [facility] 70.0 [facility] HEMATOLOGY Angle 69.6 53.0 - 12/03 [facility] 72.0 [facility] HEMATOLOGY K-time 1.6 1.0 - 3.0 12/03 [facility] HEMATOLOGY R-time 3.3 5.0 - 10.0 12/03 [facility] HEMATOLOGY TEG Data See Note 10 12/03 <sup>10</sup> [facility] (12/03/13 4:38 AM) Interpretive Medical Data: Normal [...] patient management. HEMATOLOGY TEG Interp Thrombelas 12/03 [facility] tograph [facility] show shortened value of R. 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 CPT:54830 HEMATOLOGY Ly30 0.3 0.0 - 7.5 12/03 [facility] BLOOD BANK FFP product Product available 12/03 [facility] RESULTS (12/03/13 12:13 AM) [facility] BLOOD BANK Antibody Scrn Negative 12/03 [facility] RESULTS (12/02/13 10:59 PM) [facility] BLOOD BANK ABO/Rh B NEG 12/03 [facility] RESULTS /2013 [facility] CHEM PANEL Lactic Acid 2.9 0.5 - 2.2 12/03 [facility] Lvl /2013 [facility] HEMATOLOGY Rapid TEG Citrated 12/03 [facility] Sample Type Whole /2013 [facility] HEMATOLOGY R-time 0.8 0.4 - 0.7 12/03 [facility] HEMATOLOGY [place] 0.8 12/03 [facility] HEMATOLOGY ACT (TEG) 128 86 - 118 12/03 [facility] HEMATOLOGY K-time 1.8 0.6 - 2.3 12/03 [facility] HEMATOLOGY G-value 7.2 5.0 - 11.6 12/03 [facility] HEMATOLOGY Max Amp 59 52 - 71 12/03 [facility] HEMATOLOGY Angle 68 64 - 80 12/03 [facility] HEMATOLOGY Estimated % 0.7 0.0 - 7.5 12/03 [facility] Lysis [facility] HEMATOLOGY RBC Morph Normal 12/03 [facility] (12/02/13 10:55 PM) [facility] HEMATOLOGY Plt Morph Normal 12/03 [facility] (12/02/13 10:55 PM) [facility] HEMATOLOGY Atypical 0.0 <=0.0 % 12/03 [facility] HEMATOLOGY Bands 1.0 0.0 [...] views DX RIGHT HAND, 3 views. 05/14/2015 [facility] DATE: 05/14/2015 CLINICAL INDICATION: Pain. FINDINGS: [...] DX EXAM: RIGHT ANKLE 3 VIEWS 05/09/2015 [facility] DATE: May 09, 2015 09:54:00 AM [...] 57 09/24/2015 [facility] Heart Rate 89 07/23/2015 [place] Systolic (mm Hg) 120 07/23/2015 [place] Diastolic (mm Hg) 90 07/23/2015 [place] Respitory Rate 20 07/23/2015 [place] Respitory Rate 16 07/23/2015 [place] Heart Rate 72 07/23/2015 [place] Systolic (mm Hg) 111 07/23/2015 [place] Diastolic (mm Hg) 88 07/23/2015 [place] Respitory Rate 15 07/23/2015 [place] Heart Rate 71 07/23/2015 [place] Systolic (mm Hg) 119 07/23/2015 [place] Diastolic (mm Hg) 85 07/23/2015 [place] Weight 65 07/23/2015 [place] BMI Calculated 21.79 07/23/2015 [place] Height 172.72 cm 07/16/2015 [place] Weight 65 06/07/2015 [facility] BMI Calculated 21.79 06/07/2015 [facility] Height 172.72 cm 06/07/2015 [facility] Systolic (mm Hg) 121 06/07/2015 [facility] Diastolic (mm Hg) 90 06/07/2015 [facility] Heart Rate 70 06/07/2015 [facility] Respitory Rate 20 06/07/2015 [facility] Respitory Rate 16 05/24/2015 [facility] Systolic (mm Hg) 122 05/24/2015 [facility] Diastolic (mm Hg) 67 05/24/2015 [facility] Respitory Rate 15 05/24/2015 [facility] Systolic (mm Hg) 111 05/24/2015 [facility] Diastolic (mm Hg) 65 05/24/2015 [facility] Systolic (mm Hg) 126 05/24/2015 [facility] Diastolic (mm Hg) 77 05/24/2015 [facility] Respitory Rate 11 05/24/2015 [facility] Heart Rate 65 05/24/2015 [facility] Weight 65 05/23/2015 [facility] BMI Calculated 21.79 05/23/2015 [facility] Height 172.72 cm 05/23/2015 [facility] Weight 63.636 03/26/2015 [facility] Height 172.72 cm [...] 01/24/2014 [facility] Diastolic (mm Hg) 99 12/28/2013 [facility] Systolic (mm Hg) 137 12/28/2013 [facility] Respitory Rate 20 12/28/2013 [facility] Heart Rate 80 12/28/2013 [facility] Diastolic (mm Hg) 98 12/28/2013 [facility] Systolic (mm Hg) 142 12/28/2013 [facility] Respitory Rate 18 12/28/2013 [facility] Heart Rate 93 12/28/2013 [facility] Diastolic (mm Hg) 92 12/28/2013 [facility] Systolic (mm Hg) 151 12/28/2013 [facility] Heart Rate 96 12/28/2013 [facility] Respitory Rate 18 12/28/2013 [facility] Temperature Oral (F) 97.8 F 12/26/2013 [facility] Temperature Oral (F) 98 F 12/26/2013 [facility] Temperature Oral (F) 98.6 F 12/25/2013 [facility] BMI Calculated 22.12 12/03/2013 [facility] Weight 66 12/03/2013 [facility] Height 172.72 cm 12/03/2013 [facility] Weight 81.818 12/03/2013 [facility] Height 177.8 cm 12/03/2013 [facility] BMI Calculated 25.88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
[2019-01-23] MEDS ORDERED: NA CHLORIDE 0.9% 1,000 ML ONE (19:26)
[2019-01-23 19:39] LABS: Absolute Lymphocytes (CBC) 0.7 K/uL (0.7-4.9); Basophils % 0.4 % (0-1.3); Hematocrit 40.4 % (39.6-49.0); Lymphocytes % 6.7 % (15.3-44.8); MPV 9.2 fL (7.6-11.3); RBC Red Blood Cell Count 4.37 M/uL (4.33-5.43)
[2019-01-23 19:56] LABS: Albumin 3.8 g/dL (3.4-5.0); Bilirubin Direct 0.1 mg/dL (0-0.2); Bilirubin Total 0.2 mg/dL (0.2-1.0); CKMB Creatine Kinase MB 3.2 ng/mL (0.3-3.6); Magnesium 1.9 mg/dL (1.8-2.4); Potassium 3.8 mmol/L (3.5-5.1); Protein, Total 7.4 g/dL (6.4-8.2)
[2019-01-23 20:08] LABS: Protime INR 0.97
[2019-01-23] MEDS ORDERED: DIVALPROEX DR 250 MG TAB PO ONE (21:05)
--- NOTE | 2019-01-23 21:34 | ER ---
Nurse's Notes [facility] Name: Rafy Blanca Age: 53 yrs Sex: Male : 1965 Arrival Date: 01/23/2019 Time: 19:09 Bed 3 Private MD: Diagnosis: Epilepsy and recurrent seizures Presentation: 01/23 19:11 Presenting complaint: EMS states: pt with 3 witness seizures at [facility]. pt had 2 ak1 seizures in EMS truck. pt was given 2 mg Ativan IV in route. Transition of care: patient was not received from another setting of care. Onset of symptoms was January 23, 2019. Risk Assessment: Do you want to hurt yourself or someone else? Patient reports no desire to harm self or others. Initial Sepsis Screen: Does the patient meet any 2 criteria? No. Patient's initial sepsis screen is negative. Does the patient have a suspected source of infection? No. Patient's initial sepsis screen is negative. Care prior to arrival: None. 19:11 Method Of Arrival: EMS: [facility] ak1 19:11 Acuity: SHONDA 2 ak1 Triage Assessment: 19:11 General: Appears in no apparent distress. Behavior is unresponsive. ak1 Historical: - Allergies: 20:25 THIOPENIAL; bb - Home Meds: 20:25 acetaminophen 325 mg Oral tab 1 tab every 4 hours [Active]; aspirin 325 mg Oral TbEC 1 bb tab once daily [Active]; ativan solution [Active]; Cymbalta 20 mg oral cpDR 1 cap 2 times per day [Active]; Depakote Sprinkles 125 mg Oral cpSP 4 caps 2 times per day [Active]; ibuprofen 800 mg Oral tab 1 tab 3 times per day [Active]; levetiracetam 500 mg Oral tab 1 tab 2 times per day [Active]; Miralax 17 gram Oral pwpk 1 packet once daily [Active]; Pepcid 20 mg Oral tab 1 tab once daily [Active]; Senokot 8.6 mg Oral tab 1 tabs once daily [Active]; acetaminophen-codeine 300-30 mg Oral tab 1 tab every 4-6 hours [Active]; - PMHx: 20:25 Seizures; TBI; bb - PSHx: 20:25 G-tube; tracheostomy; bb - Immunization history:: Adult Immunizations unknown. - Social history:: Smoking status: unknown. - Ebola Screening: : No symptoms or risks identified at this time. Screenin:30 Abuse screen: Denies threats or abuse. Denies injuries from another. Nutritional rr5 screening: No deficits noted. Tuberculosis screening: No symptoms or risk factors identified. Fall Risk Secondary diagnosis (15 points) seizures, IV access (20 points). Total Mota Fall Scale indicates Low Risk Score (25-44 pts). Fall prevention measures have been instituted. Side Rails Up X 2 Placed close to Nursing Station Family Present and informed to notify staff if they need to leave bedside As available Patient and Family Educated on Fall Prevention Program and strategies. Assessment: 19:12 Reassessment: pt is wheelchair bound at [place]. ak1 19:30 General: Appears in no apparent distress. comfortable, Behavior is calm, quiet, on post rr5 ictal. 19:30 Pain: Unable to use pain scale. Patient appears quiet, on post ictal. Neuro: Level of rr5 Consciousness is post ictal, Pupils are PERRLA. Cardiovascular: Capillary refill < 3 seconds Patient's skin is warm and dry. Respiratory: Airway is patent Respiratory effort is even, unlabored, Respiratory pattern is regular, symmetrical. GI: No signs and/or symptoms were reported involving the gastrointestinal system. : No signs and/or symptoms were reported regarding the genitourinary system. EENT: No signs and/or symptoms were reported regarding the EENT system. Derm: Skin is intact, Skin temperature is warm. Musculoskeletal: Circulation, motion, and sensation intact. Capillary refill < 3 seconds. 19:55 Reassessment: Patient appears in no apparent distress at this time. spoke to father at rr5 bedside. updated to registration the contact number. 20:51 Reassessment: pt awake and attempting to speak. pt started sneezing multiple times in co1 ER. 21:43 Reassessment: Patient appears in no apparent distress at this time. Hunter at [facility] contacted with report given. Hunter is contacting [employer] for pt transport back to [facility]. 21:50 Reassessment: diaper changed positive BM and diaper wet. rr5 22:24 Reassessment: Patient appears in no apparent distress at this time. awaiting for EMS rr5 transport going home. 23:29 Reassessment: follow up to [facility] for arrangement of transport. rr5 01/24 00:19 Reassessment: no seizure activity noted since pt has been in ER3. ak1 00:45 Reassessment: Hunter at [facility] stated [employer] does not answer and the [employer] company they use for stretcher transport can not transport pt until 0800 in the morning. Hunter stated she has "no way to get him home". 01:01 Reassessment: Yuliya Barnett Charge nurse and Kita [employer] Mix[employer] Operator Helper notified of pt ak transport issues. 01:33 Reassessment: Concrete Mixer Operator Helper contacted [facility] and received the number for [facility]. She then contacted [employer] who stated they would be sending a transport van in the next 2 hours to pickling operator pt and transport him back to [facility]. Concrete Mixer Operator Helper then call Hunter at [facility] to notify her of transport. 03:41 Reassessment: Patient appears in no apparent distress at this time. pt resting with [facility] eyes closed, resp even and unlabored. pt continues to wait for transport. 05:10 Reassessment: Patient appears in no apparent distress at this time. No changes from rr5 previously documented assessment. awaiting for transport going home, no complaints made. 05:50 Reassessment: pt gown changed, pt placed in his wheelchair and transported back to [address] via [employer] service. Vital Signs: 01/23 19:10 BP 97 / 73; Pulse 118; Resp 20; Temp 98.0(TE); Pulse Ox 94% on R/A; Weight 77.11 kg ak (R); Height 5 ft. 10 in. (177.80 cm) (R); Pain 0/10; 20:30 BP 104 / 81; Pulse 90; Resp 17; Temp 98.1; Pulse Ox 98% ; rr5 22:00 BP 110 / 79; Pulse 85; Resp 17; Temp 98.2; Pulse Ox 99% ; rr5 01/24 01:33 BP 120 / 77; Pulse 71; Resp 22; Pulse Ox 100% on R/A; ak1 05:00 BP 115 / 75; Pulse 79; Resp 16; Temp 98.1; Pulse Ox 98% ; rr5 01/23 19:10 Body Mass Index 24.39 (77.11 kg, 177.80 cm) ak1 Jared Coma Score: 01:35 Eye Response: spontaneous(4). Verbal Response: confused(4). Motor Response: obeys ak1 commands(6). Total: 14. ED Course: 01/23 19:09 Patient arrived in ED. ak1 19:11 Triage completed. ak1 19:11 Arm band placed on Patient placed in an exam room, on a stretcher, Patient notified of ak1 wait time. 19:12 Maintain EMS IV. Dressing intact. Site clean \\T\\ dry. Gauge \\T\\ site: 20g in right AC. ak 1 19:20 Kade Hayden MD is Attending Physician. tw4 19:30 Oscar Miranda RN is Primary Nurse. rr5 19:30 Patient has correct armband on for positive identification. Fall risk band placed. rr5 Placed in gown. Bed in low position. Call light in reach. Side rails up X2. Seizure precautions initiated. 19:30 quality assurance monitor final on. Pulse ox on. NIBP on. rr5 01/24 01:51 Repositioned patient. Cleaned of incontinence. Linen changed. rr5 05:51 No provider procedures requiring assistance completed. IV discontinued, intact, ak1 bleeding controlled, No redness/swelling at site. Pressure dressing applied. Administered Medications: 01/23 19:29 Drug: NS 0.9% 1000 ml Route: IV; Rate: 125 ml/hr; Site: right antecubital; la1 20:58 Follow up: Rate change 1 bolus ak1 22:25 Follow up: Response: No adverse reaction; IV Status: Completed infusion; IV Intake: rr5 1000ml 21:30 Drug: Depakene 250 mg Route: PO; rr5 22:25 Follow up: Response: No adverse reaction rr5 Intake: 22:25 IV: 1000ml; Total: 1000ml. rr5 Output: 01/24 01:51 Other: 1 (Diapers) ; Total: 0ml. rr5 Outcome: 01/23 21:33 Discharge ordered by . tw4 01/24 05:51 [facility] to [facility]. Report called to [facility] akEleazar Condition: improved Instructed on discharge instructions, follow up and referral plans. Prescriptions given X 1. 05:52 Patient left the ED. ak1 Signatures: Yuliya Parks RN RN bb Herbert Carey RN RN la1 Jacqueline Harp RN RN ak1 Kade Hayden, MD MAY tw4 Oscar Miranda, RN RN rr5
--- NOTE | 2019-01-23 21:35 | EDPHYS ---
Physician Documentation [facility] Name: Rafy Blanca Age: 53 yrs Sex: Male : 1965 Arrival Date: 01/23/2019 Time: 19:09 Bed 3 Private MD: ED Physician Kade Hayden HPI: 01/23 19:48 This 53 yrs old Male presents to ER via EMS with complaints of Seizure. tw4 19:48 The patient presents after having a single isolated seizure, that lasted an unknown tw4 period of time. Character of seizure(s): Motor activity: generalized, shaking all over. Seizure onset: today. Context: the seizure(s) was witnessed, by the [facility] staff. Seizure Hx: Seizure medications: valproic acid. Associated injury: The patient did not suffer any apparent associated injury. Current symptoms: Currently, the patient is not experiencing any symptoms. Historical: - Allergies: 20:25 THIOPENIAL; bb - Home Meds: 20:25 acetaminophen 325 mg Oral tab 1 tab every 4 hours [Active]; aspirin 325 mg Oral TbEC 1 bb tab once daily [Active]; ativan solution [Active]; Cymbalta 20 mg oral cpDR 1 cap 2 times per day [Active]; Depakote Sprinkles 125 mg Oral cpSP 4 caps 2 times per day [Active]; ibuprofen 800 mg Oral tab 1 tab 3 times per day [Active]; levetiracetam 500 mg Oral tab 1 tab 2 times per day [Active]; Miralax 17 gram Oral pwpk 1 packet once daily [Active]; Pepcid 20 mg Oral tab 1 tab once daily [Active]; Senokot 8.6 mg Oral tab 1 tabs once daily [Active]; acetaminophen-codeine 300-30 mg Oral tab 1 tab every 4-6 hours [Active]; - PMHx: 20:25 Seizures; TBI; bb - PSHx: 20:25 G-tube; tracheostomy; bb - Immunization history:: Adult Immunizations unknown. - Social history:: Smoking status: unknown. - Ebola Screening: : No symptoms or risks identified at this time. ROS: 19:48 Constitutional: Negative for fever, chills, and weight loss, Eyes: Negative for injury, tw4 pain, redness, and discharge, Cardiovascular: Negative for chest pain, palpitations, and edema, Respiratory: Negative for shortness of breath, cough, wheezing, and pleuritic chest pain, Abdomen/GI: Negative for abdominal pain, nausea, vomiting, diarrhea, and constipation, Back: Negative for injury and pain, MS/Extremity: Negative for injury and deformity. 19:48 Neuro: Positive for seizure activity. Exam: 19:48 Constitutional: This is a well developed, well nourished patient who is awake, alert, tw4 and in no acute distress. Head/Face: Normocephalic, atraumatic. Chest/axilla: Normal chest wall appearance and motion. Nontender with no deformity. No lesions are appreciated. Cardiovascular: Regular rate and rhythm with a normal S1 and S2. No gallops, murmurs, or rubs. Normal PMI, no JVD. No pulse deficits. Respiratory: Lungs have equal breath sounds bilaterally, clear to auscultation and percussion. No rales, rhonchi or wheezes noted. No increased work of breathing, no retractions or nasal flaring. Abdomen/GI: Soft, non-tender, with normal bowel sounds. No distension or tympany. No guarding or rebound. No evidence of tenderness throughout. Back: No spinal tenderness. No costovertebral tenderness. Full range of motion. MS/ Extremity: Pulses equal, no cyanosis. Neurovascular intact. Full, normal range of motion. 19:48 Neuro: Orientation: unable to test, the patient is post-ictal, Mentation: unable to test, the patient is post-ictal. Vital Signs: 19:10 BP 97 / 73; Pulse 118; Resp 20; Temp 98.0(TE); Pulse Ox 94% on R/A; Weight 77.11 kg ak1 (R); Height 5 ft. 10 in. (177.80 cm) (R); Pain 0/10; 20:30 BP 104 / 81; Pulse 90; Resp 17; Temp 98.1; Pulse Ox 98% ; rr5 22:00 BP 110 / 79; Pulse 85; Resp 17; Temp 98.2; Pulse Ox 99% ; rr5 01/24 01:33 BP 120 / 77; Pulse 71; Resp 22; Pulse Ox 100% on R/A; ak1 05:00 BP 115 / 75; Pulse 79; Resp 16; Temp 98.1; Pulse Ox 98% ; rr5 01/23 19:10 Body Mass Index 24.39 (77.11 kg, 177.80 cm) ak1 Jared Coma Score: 01:35 Eye Response: spontaneous(4). Verbal Response: confused(4). Motor Response: obeys ak1 commands(6). Total: 14. MDM: 01/23 19:20 Patient medically screened. 01/24 06:01 Data reviewed: vital signs, nurses notes. Data interpreted: Pulse oximetry: 4 Interpretation: normal. Counseling: I had a detailed discussion with the patient and/or guardian regarding: the historical points, exam findings, and any diagnostic results supporting the discharge/admit diagnosis. Special discussion: I discussed with the patient/guardian in detail that at this point there is no indication for admission to the hospital. It is understood, however, that if the symptoms persist or worsen the patient needs to return immediately for re-evaluation. 01/23 19:22 Order name: Basic Metabolic Panel; Complete Time: 20:55 [facility] 01/23 20:54 Interpretation: Normal except: NA 130; CL 97; CO2 16; GLUC 169; GFR 67. [facility] 01/23 19:22 Order name: CBC with Diff; Complete Time: 20:55 [facility] 01/23 20:55 Interpretation: Normal except: WBC 9.8; MCV 92.5; MPV 9.2; LAMONT% 84.6; LYM% 6.7. [facility] 01/23 19:22 Order name: Ckmb; Complete Time: 20:55 [facility] 01/23 20:55 Interpretation: Within normal limits: CKMB 3.2. [facility] 01/23 19:22 Order name: CPK; Complete Time: 20:55 [facility] 01/23 20:55 Interpretation: Within normal limits: CPK 174. [facility] 01/23 19:22 Order name: Hepatic Function; Complete Time: 20:55 [facility] 01/23 20:55 Interpretation: Normal except: GLOB 3.6. [facility] 01/23 19:22 Order name: Lipase; Complete Time: 20:55 [facility] 01/23 20:55 Interpretation: Within normal limits: LIP 191. [facility] 01/23 19:22 Order name: Magnesium; Complete Time: 20:55 [facility] 01/23 20:55 Interpretation: Within normal limits: MG 1.9. [facility] 01/23 19:22 Order name: Protime (+inr); Complete Time: 20:55 tw4 01/23 20:55 Interpretation: Within normal limits: PT 11.5. tw4 01/23 19:22 Order name: Ptt, Activated tw4 01/23 19:22 Order name: Cardiac monitoring; Complete Time: 19:30 tw4 01/23 19:22 Order name: Depakote tw 01/24 01:00 Order name: Glucose, Ancillary Testing [facility] 01/23 19:22 Order name: EKG - Nurse/Tech; Complete Time: 19:30 tw4 01/23 19:22 Order name: IV Saline Lock; Complete Time: 19:30 tw4 01/23 19:22 Order name: Labs collected and sent; Complete Time: 19:30 tw4 01/23 19:22 Order name: NPO; Complete Time: 19:30 tw4 01/23 19:22 Order name: O2 Per Protocol; Complete Time: 19:30 tw4 01/23 19:22 Order name: O2 Sat Monitoring; Complete Time: 19:30 tw4 Administered Medications: 01/23 19:29 Drug: NS 0.9% 1000 ml Route: IV; Rate: 125 ml/hr; Site: right antecubital; la1 20:58 Follow up: Rate change 1 bolus ak1 22:25 Follow up: Response: No adverse reaction; IV Status: Completed infusion; IV Intake: rr5 1000ml 21:30 Drug: Depakene 250 mg Route: PO; rr5 22:25 Follow up: Response: No adverse reaction rr5 Disposition: 01/23/19 21:33 Discharged to Home. Impression: Epilepsy and recurrent seizures. - Condition is Stable. - Discharge Instructions: Seizure, Adult. - Prescriptions for Depakote 500 mg Oral Tablet - take 1 tablet by ORAL route every 12 hours; 60 tablet. - Medication Reconciliation Form, Thank You Letter, Antibiotic Education, Prescription Opioid Use form. - Follow up: Private Physician; When: Upon discharge from the Emergency Department; Reason: If symptoms return, Recheck today's complaints, Continuance of care. - Problem is new. - Symptoms have improved. Signatures: Dispatcher [employer] [facility] Yuliya Parks RN RN bb Herbert Carey RN RN la1 Jacqueline Harp RN RN [email or web address] Kade Hayden MD MD tw4 Oscar Miranda RN RN rr5 Corrections: (The following items were deleted from the chart) 01/24 02:46 01/23 19:23 Urine Dipstick-Ancillary ordered. tw4 ak1 01/24 05:52 01/23 21:33 01/23/2019 21:33 Discharged to Home. Impression: Epilepsy and recurrent ak1 seizures. Condition is Stable. Forms are Medication Reconciliation Form, Thank You Letter, Antibiotic Education, Prescription Opioid Use. Follow up: Private Physician; When: Upon discharge from the Emergency Department; Reason: If symptoms return, Recheck today's complaints, Continuance of care. Problem is new. Symptoms have improved. tw4
[2019-01-24 06:04] VITALS: BP 115/75; TEMP 98.1; O2SAT 98
--- NOTE | 2019-01-24 13:39 | EKG ---
Test Date: 2019-01-23 Test Time: 19:14:16 Stenocaptioner: [place] MEASUREMENT RESULTS: Intervals: Rate: 116 TN: 140 QRSD: 76 QT: 314 QTc: 436 [place]: P: 51 TN: 140 QRS: 59 T: 15 INTERPRETIVE STATEMENTS: Sinus tachycardia Otherwise normal ECG Compared to ECG 01/06/2019 13:27:07 ST (T wave) deviation no longer present Electronically Signed On 01-24-19 13:38:18 CDT by Dudley Payne
== END 2019-01-24 05:52 | disposition home or self-care (01) ==
LOC: ER 19:03
DX: G40.802 Other epilepsy, not intractable, without status epilepticus (principal); Z87.820 Personal history of traumatic brain injury; Z79.82 Long term (current) use of aspirin; Z88.8 Allergy status to other drugs, medicaments and biological substances
CPT/HCPCS: 96361; 93005; 85025; 80048; 36415; 83735; 82550; 85610; 82962; 80076; 80164; 85730; 82553; 83690; 96360; 99284; J7030

== ENCOUNTER 2019-02-09 07:45 | Inpatient (IN) | payer OTHER ==
[2019-02-09] MEDS ORDERED: CEFEPIME 1 GM/100 ML BAG IV ONE ×2 (07:54→20:55)
[2019-02-09] MEDS ORDERED: NA CHLORIDE 0.9% 2,000 ML ONE (07:55)
[2019-02-09 08:12] LABS: Absolute Lymphocytes (CBC) 0.3 K/uL (0.7-4.9); Basophils % 0.2 % (0-1.3); Hematocrit 43.3 % (39.6-49.0); Lymphocytes % 2.3 % (15.3-44.8); MPV 8.6 fL (7.6-11.3); RBC Red Blood Cell Count 4.67 M/uL (4.33-5.43)
[2019-02-09] MEDS ORDERED: levETIRAcetam 1,000 MG in NA CHLORIDE 0.9% 100 ML IV ONE (08:15)
[2019-02-09] MEDS ORDERED: VANCOMYCIN/NS 1 gm 1 GM/250 ML BAG IV ONE (08:15)
[2019-02-09 08:16] LABS: Protime INR 1.01
[2019-02-09 08:28] LABS: Urine Blood 3+ (NEG); Urine Glucose NEGATIVE (NEG); Urine Protein TRACE (NEG); Urine Specific Gravity 1.025 (1.005-1.030); Urine pH 5.5 (5.0-7.0)
[2019-02-09 08:31] LABS: ALT/SGPT 26 U/L (12-78); AST/SGOT 12 U/L (15-37); Albumin 3.8 g/dL (3.4-5.0); Alkaline Phosphatase 83 U/L (45-117); BUN Blood Urea Nitrogen 7 mg/dL (7-18); Bicarbonate 17 mmol/L (21-32); Bilirubin Direct 0.1 mg/dL (0-0.2); Bilirubin Total 0.2 mg/dL (0.2-1.0); CKMB Creatine Kinase MB 2.5 ng/mL (0.3-3.6); Creatine Phosphokinase 141 U/L (39-308); Glucose Level 119 mg/dL (74-106); Lipase 116 U/L (73-393); Potassium 3.9 mmol/L (3.5-5.1); Protein, Total 7.5 g/dL (6.4-8.2); Sodium Level 132 mmol/L (136-145); Troponin (Emerg Dept Use Only) < 0.02 ng/mL (0.0-0.045)
--- NOTE | 2019-02-09 08:53 | RAD REPORT ---
EXAM DESCRIPTION: RAD - Chest Single View - 02/09/2019 8:10 am CLINICAL HISTORY: FEVER Chest pain. COMPARISON: Chest Single View dated 01/09/2019; Abdomen 1 View (KUB) dated 01/08/2019; Abdomen 1 View (K UB) dated 01/08/2019; Chest Single View dated 01/06/2019 FINDINGS: Portable technique limits examination quality. Linear subsegmental atelectasis is present in the right lung base. The lungs are otherwise clear. The heart is normal in size. No displaced fractures. IMPRESSION: No acute intrathoracic process suspected.
[2019-02-09 09:24] LABS: Urine Bacteria <20 /HPF (NONE SEEN); Urine Culture Reflex Order REFLEXED; Urine Mucus SLIGHT /HPF (NONE SEEN); Urine RBC 20-50 /HPF (NONE SEEN)
--- NOTE | 2019-02-09 09:31 | EKG ---
Test Date: 2019-02-09 Test Time: 08:31:09 Manufacturing Tech: ADRI MEASUREMENT RESULTS: Intervals: Rate: 102 MA: 148 QRSD: 64 QT: 328 QTc: 427 [place]: P: 55 MA: 148 QRS: 59 T: 28 INTERPRETIVE STATEMENTS: Sinus tachycardia Otherwise normal ECG Compared to ECG 01/23/2019 19:14:16 No significant changes Electronically Signed On 02-09-19 09:30:12 CDT by Dudley Payne
--- NOTE | 2019-02-09 09:58 | ER ---
Nurse's Notes [facility] Name: Rafy Blanca Age: 53 yrs Sex: Male : 1965 Arrival Date: 02/09/2019 Time: 07:46 Bed 6 Private MD: Diagnosis: Epilepsy and recurrent seizures;Dehydration;Hypotension;Sepsis Presentation: 02/09 07:46 Presenting complaint: EMS states: pt from [facility], had a seizure at 630 tw2 this morning that lasted 30 seconds to a minute, we gave 5 mg Versed IV, snf gave Tylenol sup at 635. Transition of care: patient was received from another setting of care (long-term care facility), [facility]. Onset of symptoms was February 09, 2019. Risk Assessment: Do you want to hurt yourself or someone else? Patient reports no desire to harm self or others. Initial Sepsis Screen: Does the patient meet any 2 criteria? RR > 20 per min. HR > 90 bpm. Yes Does the patient have a suspected source of infection? Yes:. Care prior to arrival: IV initiated. 20 GA, in the left wrist, Oxygen administered. via a non-rebreather mask. 07:46 Method Of Arrival: EMS: [facility] tw2 07:46 Acuity: SHONDA 2 tw2 Triage Assessment: 07:49 General: Appears Behavior is unresponsive. Pain: Unable to use pain scale. Patient is tw2 unresponsive. Neuro: Level of Consciousness is unresponsive, Oriented to none. Historical: - Allergies: 07:51 THIOPENIAL; tw2 - Home Meds: 07:51 acetaminophen 325 mg Oral tab 1 tab every 4 hours [Active]; acetaminophen-codeine tw2 300-30 mg Oral tab 1 tab every 4-6 hours [Active]; aspirin 325 mg Oral TbEC 1 tab once daily [Active]; ativan solution [Active]; Cymbalta 20 mg Oral cpDR 1 cap 2 times per day [Active]; ibuprofen 800 mg Oral tab 1 tab 3 times per day [Active]; Miralax 17 gram Oral pwpk 1 packet once daily [Active]; levetiracetam 500 mg Oral tab 1 tab 2 times per day [Active]; Pepcid 20 mg Oral tab 1 tab once daily [Active]; Senokot 8.6 mg Oral tab 1 tabs once daily [Active]; Depakote Sprinkles 125 mg Oral cpSP 4 caps 2 times per day [Active]; - PMHx: 07:51 Seizures; TBI; tw2 - PSHx: 07:51 G-tube; tw2 - Immunization history:: Adult Immunizations. - Social history:: Smoking status: . - Ebola Screening: : Patient denies travel to an Ebola-affected area in the 21 days before illness onset. Screenin:52 Abuse screen: Denies threats or abuse. Nutritional screening: No deficits noted. tw2 Tuberculosis screening: No symptoms or risk factors identified. Fall Risk None identified. 14:00 Patient has been NPO before screening. The patient is alert, able to follow commands. ch The patient does not exhibit slurred or garbled speech The patient is not exhibiting difficulty speaking. The patient does not exhibit difficulty understanding words. The patient is able to swallow own secretions with no drooling or need for suction. Patient tolerated one teaspoon of water. No drooling, immediate coughing, gurgling, or clearing of the throat was noted. The patient did not tolerate 90mL of water. Drooling, immediate coughing, gurgling, or clearing of the throat was noted. Bedside swallow screening discontinued. Patient kept NPO until cleared by Speech Therapy or Physician. The patient failed the bedside swallow screening. The patient will be kept NPO until cleared by Speech Therapy or Physician. Provider notified of bedside swallow screening results: Rambo DAVE. Assessment: 07:50 General: Appears Behavior is unresponsive. Neuro: Level of Consciousness is tw2 unresponsive, Oriented to none. Cardiovascular: Heart tones S1 S2 Patient's skin is warm and dry. Respiratory: Airway is patent Respiratory effort is even, unlabored, Respiratory pattern is regular, symmetrical, Breath sounds are clear bilaterally. GI: Abdomen is flat, Bowel sounds present X 4 quads. : No signs and/or symptoms were reported regarding the genitourinary system. EENT: No signs and/or symptoms were reported regarding the EENT system. Derm: No signs and/or symptoms reported regarding the dermatologic system. Musculoskeletal: 09:17 Reassessment: Patient appears in no apparent distress at this time. Patient and/or tw2 family updated on plan of care and expected duration. Pain level reassessed. pt is alert to person and place at this time. 10:43 Reassessment: Patient appears in no apparent distress at this time. Patient and/or aj1 family updated on plan of care and expected duration. Pain level reassessed. 11:32 Reassessment: Patient appears in no apparent distress at this time. Patient and/or tw2 family updated on plan of care and expected duration. Pain level reassessed. pt is A\T\O to person and place at this time and can converse at this time. 12:30 Reassessment: Patient appears in no apparent distress at this time. No changes from tw2 previously documented assessment. Patient and/or family updated on plan of care and expected duration. Pain level reassessed. 13:30 Reassessment: Patient appears in no apparent distress at this time. No changes from tw2 previously documented assessment. Patient and/or family updated on plan of care and expected duration. Pain level reassessed. 14:00 Reassessment: Patient appears in no apparent distress at this time. pt oriented to person and place, pt responds to questions with repetitive questioning and simple answers. pt appears mentally impaired. swallow screeing performed, pt swallowed sips well. but then pt held water in his mouth for a prolonged period of time. after that he swallowed, then said it doesn't want to go down. pt then clears his throat, states It doesn't want to go down. pt then coughs. pt failed swallow screening, Rambo Notified. bgl checked, pt started on D5 1/2 NS. 15:01 Reassessment: Patient appears in no apparent distress at this time. No changes from tw2 previously documented assessment. Patient and/or family updated on plan of care and expected duration. Pain level reassessed. 15:55 Reassessment: Patient appears in no apparent distress at this time. Patient and/or ch family updated on plan of care and expected duration. Pain level reassessed. 17:00 Reassessment: Patient appears in no apparent distress at this time. No changes from tw2 previously documented assessment. Patient and/or family updated on plan of care and expected duration. Pain level reassessed. 18:00 Reassessment: Patient appears in no apparent distress at this time. No changes from tw2 previously documented assessment. Patient and/or family updated on plan of care and expected duration. Pain level reassessed. 18:14 Reassessment: KENYON Blake at bedside spoon feeding pt dinner at this time. tw2 Vital Signs: 07:48 BP 75 / 51; Pulse 123; Resp 25; Temp 99.2; Pulse Ox 94% on 100% Non-rebreather mask; tw2 07:48 Weight 77.11 kg (R); tw2 08:27 BP 84 / 68; Pulse 93; Resp 12; Temp 98.7(C); Pulse Ox 100% on R/A; tw2 09:17 BP 119 / 80; Pulse 86; Resp 24; Temp 98.1(C); Pulse Ox 100% on R/A; tw2 10:00 BP 102 / 82; Pulse 86; Resp 17; Pulse Ox 99% on R/A; aj1 10:43 BP 107 / 96; Pulse 79; Resp 15; Temp 98.6(C); Pulse Ox 100% on R/A; aj1 11:32 BP 104 / 79; Pulse 74; Resp 22; Temp 98.8(C); Pulse Ox 100% on R/A; tw2 12:30 BP 93 / 69; Pulse 84; Resp 27; Temp 98.7(C); Pulse Ox 100% on R/A; tw2 13:57 BP 106 / 92; Pulse 75; Resp 24; Temp 98.9(C); Pulse Ox 100% on R/A; tw2 14:59 BP 108 / 88; Pulse 82; Resp 24; Temp 99.1(C); Pulse Ox 98% on R/A; tw2 16:00 BP 106 / 75; Pulse 75; Resp 22; Pulse Ox 98% on R/A; tw2 17:00 BP 114 / 72; Pulse 89; Resp 17; Temp 98.9(C); Pulse Ox 97% ; tw2 18:00 BP 101 / 58; Pulse 91; Resp 19; Temp 98.9(C); Pulse Ox 99% on R/A; tw2 19:05 BP 122 / 85; Pulse 96; Resp 25; Temp 99.1(C); Pulse Ox 97% on R/A; ak1 [place] Coma Score: 07:49 Eye Response: to pain(2). Verbal Response: incomprehensible(2). Motor Response: tw2 withdraws from pain(4). Total: 8. ED Course: 07:46 Patient arrived in ED. tw2 07:46 Bed in low position. Call light in reach. Side rails up X2. Seizure precautions tw2 initiated. slitter cut off operator on. Pulse ox on. NIBP on. 07:47 Rambo Martinez PA is PHCP. jr8 07:47 Fredi Perez MD is Attending Physician. jr8 07:48 Triage completed. tw2 07:48 Arm band placed on. tw2 07:50 Inserted saline lock: 20 gauge in right antecubital area, using aseptic technique. ss Blood collected. 08:03 Suzy Agarwal, KENYON is Primary Nurse. tw2 08:03 Initial lab(s) drawn, by ED staff, sent to lab. Hinkle cath inserted, using sterile ch technique, 16 Fr., by pa, balloon inflated, to gravity drainage, urine specimen collected. Inserted saline lock: 20 gauge in right antecubital area, using aseptic technique. Blood collected. Started byShelby Maintain EMS IV. Dressing intact. Good blood return noted. Site clean \T\ dry. Gauge \T\ site: 20g L wrist. 08:07 Chest Single View XRAY In Process Unspecified. EDMS 08:17 Urine collected: Hinkle catheter specimen, cloudy, jacqueline colored. jb1 08:39 EKG done, by oven technician. reviewed by Rambo DAVE. at1 09:57 Aaron Roman is Hospitalizing Provider. jr8 14:00 Warm blanket given. ch 19:01 No provider procedures requiring assistance completed. Patient admitted, IV remains in ak1 place. Administered Medications: 08:03 Drug: NS 0.9% (30 ml/kg) 30 ml/kg {Note: 2000 ml NS .} Route: IV; Rate: bolus; Site: tw2 left wrist; 10:45 Follow up: Response: No adverse reaction; IV Status: Completed infusion; IV Intake: tw2 2000ml 08:06 Drug: Cefepime 1 grams Route: IVPB; Rate: 200 ml/hr; Infused Over: 30 mins; Site: left tw2 wrist; 08:33 Follow up: Response: No adverse reaction; IV Status: Completed infusion tw2 09:12 Follow up: IV Status: Completed infusion; IV Intake: 100ml ch 08:27 Drug: Keppra 1000 mg Route: IV; Rate: calculated rate; Site: right antecubital; tw2 09:12 Follow up: IV Status: Completed infusion; IV Intake: 250ml 09:45 Follow up: Response: No adverse reaction; IV Status: Completed infusion aj1 08:37 Drug: vancoMYCIN 1 grams Route: IVPB; Infused Over: 2 hrs; Site: left antecubital; tw2 10:44 Follow up: Response: No adverse reaction; IV Status: Completed infusion aj1 13:56 Drug: D5-NS 1000 ml Route: IV; Rate: 75 ml/hr; Site: left wrist; tw2 19:06 Follow up: IV Status: Infusion continued upon admission ak1 Intake: 09:12 IV: 100ml; Total: 100ml. 09:12 IV: 250ml; Total: 350ml. 10:45 IV: 2000ml; Total: 2350ml. tw2 14:58 drained from collection bag at this time. tw2 Output: 14:58 Urine: 600ml (Hinkle); Total: 600ml. tw2 14:58 drained from collection bag at this time. tw2 Outcome: 09:57 Decision to Hospitalize by Provider. jr8 19:01 Condition: stable ak1 19:01 Instructed on the need for admit. 20:03 Patient left the ED. ak1 Signatures: Dispatcher [employer] EDMS Angelo Mckeon Christina, RN Rosetta Bojorquez ch RN RN aj1 Marychuy Patel RN RN Rambo Katz PA PA jr8 Ariela Edwards, able bodied watchman EKG Tat1 Jacqueline Harp RN RN ak1 Suzy Agarwal RN RN tw2 Corrections: (The following items were deleted from the chart) 08:06 08:04 GCS: 8, tw2 tw2 13:57 13:57 BP 106 / 92; Pulse 75bpm; Resp 24bpm; Pulse Ox 100% RA; tw2 tw2 13:58 08:03 NS 0.9% (30 ml/kg) 30 ml/kg IV at bolus in left wrist tw2 tw2 13:58 09:12 IV Status: Completed infusion; IV Intake: 2300ml tw2 13:58 10:44 Response: No adverse reaction; IV Status: Completed infusion; IV Intake: 2000ml tw2 aj1
--- NOTE | 2019-02-09 09:58 | EDPHYS ---
Physician Documentation [facility] Name: Rafy Blanca Age: 53 yrs Sex: Male : 1965 Arrival Date: 02/09/2019 Time: 07:46 Bed 6 Private MD: ACACIA Physician Fredi Perez HPI: 02/09 09:57 This 53 yrs old Male presents to ER via EMS with complaints of Seizure. [facility] 09:57 Seizure onset: just prior to arrival. Context: the seizure(s) was witnessed, by the [facility] [place] [facility] staff, occurred at a [place] or assisted living facility, occurred while the patient was at rest. Current symptoms: postictal. The patient has experienced similar episodes in the past, a few times. The patient has not recently seen a physician. EMS called out to [place] for patient who was seizing. 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 Seizures initiated soon after that. 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 Patient given versed. Patient postical at this time but maintaining airway . Historical: - Allergies: 07:51 THIOPENIAL; tw2 - Home Meds: 07:51 acetaminophen 325 mg Oral tab 1 tab every 4 hours [Active]; acetaminophen-codeine tw2 300-30 mg Oral tab 1 tab every 4-6 hours [Active]; aspirin 325 mg Oral TbEC 1 tab once daily [Active]; ativan solution [Active]; Cymbalta 20 mg Oral cpDR 1 cap 2 times per day [Active]; ibuprofen 800 mg Oral tab 1 tab 3 times per day [Active]; Miralax 17 gram Oral pwpk 1 packet once daily [Active]; levetiracetam 500 mg Oral tab 1 tab 2 times per day [Active]; Pepcid 20 mg Oral tab 1 tab once daily [Active]; Senokot 8.6 mg Oral tab 1 tabs once daily [Active]; Depakote Sprinkles 125 mg Oral cpSP 4 caps 2 times per day [Active]; - PMHx: 07:51 Seizures; TBI; tw2 - PSHx: 07:51 G-tube; tw2 - Immunization history:: Adult Immunizations. - Social history:: Smoking status: . - Ebola Screening: : Patient denies travel to an Ebola-affected area in the 21 days before illness onset. ROS: 09:57 Unable to obtain ROS due to altered mental status. jr8 Exam: 09:57 Eyes: Pupils equal round and reactive to light. Sluggish. Lids and lashes normal. jr8 Conjunctiva and sclera are non-icteric and not injected. Cornea within normal limits. Periorbital areas with no swelling, redness, or edema. ENT: Nares patent. No nasal discharge, no septal abnormalities noted. Tympanic membranes are normal and external auditory canals are clear. Oropharynx with no redness, swelling, or masses, exudates, or evidence of obstruction, uvula midline. Mucous membranes moist. Cardiovascular: Sinus tachycardia with a normal rhythm with a normal S1 and S2. No gallops, murmurs, or rubs. Normal PMI, no JVD. No pulse deficits. Respiratory: Lungs have equal breath sounds bilaterally, clear to auscultation and percussion. No rales, rhonchi or wheezes noted. No increased work of breathing, no retractions or nasal flaring. Abdomen/GI: Soft with no distension or external signs of trauma. Active bowel sounds in all quadrants Skin: Warm, dry with normal turgor. Normal color with no rashes, no lesions, and no evidence of cellulitis. MS/ Extremity: Pulses equal, no cyanosis. Neurovascular intact. Contracted Neuro: Patient altered. Postictal. Not alert to person, place, time, event Vital Signs: 07:48 BP 75 / 51; Pulse 123; Resp 25; Temp 99.2; Pulse Ox 94% on 100% Non-rebreather mask; tw2 07:48 Weight 77.11 kg (R); tw2 08:27 BP 84 / 68; Pulse 93; Resp 12; Temp 98.7(C); Pulse Ox 100% on R/A; tw2 09:17 BP 119 / 80; Pulse 86; Resp 24; Temp 98.1(C); Pulse Ox 100% on R/A; tw2 10:00 BP 102 / 82; Pulse 86; Resp 17; Pulse Ox 99% on R/A; aj1 10:43 BP 107 / 96; Pulse 79; Resp 15; Temp 98.6(C); Pulse Ox 100% on R/A; aj1 11:32 BP 104 / 79; Pulse 74; Resp 22; Temp 98.8(C); Pulse Ox 100% on R/A; tw2 12:30 BP 93 / 69; Pulse 84; Resp 27; Temp 98.7(C); Pulse Ox 100% on R/A; tw2 13:57 BP 106 / 92; Pulse 75; Resp 24; Temp 98.9(C); Pulse Ox 100% on R/A; tw2 14:59 BP 108 / 88; Pulse 82; Resp 24; Temp 99.1(C); Pulse Ox 98% on R/A; tw2 16:00 BP 106 / 75; Pulse 75; Resp 22; Pulse Ox 98% on R/A; tw2 17:00 BP 114 / 72; Pulse 89; Resp 17; Temp 98.9(C); Pulse Ox 97% ; tw2 18:00 BP 101 / 58; Pulse 91; Resp 19; Temp 98.9(C); Pulse Ox 99% on R/A; tw2 19:05 BP 122 / 85; Pulse 96; Resp 25; Temp 99.1(C); Pulse Ox 97% on R/A; ak1 [place] Coma Score: 07:49 Eye Response: to pain(2). Verbal Response: incomprehensible(2). Motor Response: tw2 withdraws from pain(4). Total: 8. MDM: 07:49 Patient medically screened. jr8 09:56 Data reviewed: vital signs, nurses notes, lab test result(s), EKG, radiologic studies, jr8 plain films. Data interpreted: Pulse oximetry: on room air is 100 %. Interpretation: normal. Counseling: I had a detailed discussion with the patient and/or guardian regarding: the historical points, exam findings, and any diagnostic results supporting the discharge/admit diagnosis, lab results, radiology results, the need for further work-up and treatment in the hospital. Physician consultation: Aaron Roman was called at 09:56, was contacted at 09:56, regarding admission, to the ICU, consult, patient's condition, and will see patient in ED. 02/09 07:48 Order name: Basic Metabolic Panel; Complete Time: 08:41 jr8 02/09 07:48 Order name: Blood Culture Adult (2) jr8 02/09 07:48 Order name: CBC with Diff; Complete Time: 10:45 jr8 02/09 07:48 Order name: Ckmb; Complete Time: 08:41 8 02/09 07:48 Order name: CPK; Complete Time: 08:41 02/09 07:48 Order name: Lactate; Complete Time: 09:01 02/09 07:48 Order name: LFT's; Complete Time: 08:41 8 02/09 07:48 Order name: Lipase; Complete Time: 08:41 02/09 07:48 Order name: Procalcitonin; Complete Time: 09:01 02/09 07:48 Order name: Protime (+inr); Complete Time: 08:41 02/09 07:48 Order name: Ptt, Activated; Complete Time: 08:41 02/09 07:48 Order name: Troponin (emerg Dept Use Only); Complete Time: 08:41 02/09 07:48 Order name: Urine Microscopic Only; Complete Time: 09:27 8 02/09 07:48 Order name: Depakote; Complete Time: 08:41 8 02/09 07:48 Order name: Chest Single View XRAY; Complete Time: 09:01 8 02/09 07:56 Order name: NOVA; Complete Time: 10:45 tw2 02/09 08:07 Order name: Urine Dipstick--Ancillary (enter results); Complete Time: 08:41 gm 02/09 08:22 Order name: CBC Smear Scan; Complete Time: 10:45 EDMS 02/09 08:42 Order name: EKG; Complete Time: 08:43 gm 02/09 09:25 Order name: Urine Culture EDMS 02/09 10:51 Order name: Social Service Consult EDMS 02/09 11:39 Order name: Lactate Sepsis 2 HR Follow-up; Complete Time: 11:45 EDMS 02/09 13:55 Order name: Glucometer Result Nova tw2 02/09 14:06 Order name: Glucose, Ancillary Testing; Complete Time: 14:15 EDMS 02/09 20:03 Order name: ABG Arterial Blood Gas EDMS 02/09 07:48 Order name: Accucheck; Complete Time: 08:05 jr8 02/09 07:48 Order name: Cardiac monitoring; Complete Time: 07:53 jr8 02/09 07:48 Order name: EKG - Nurse/Tech; Complete Time: 08:29 02/09 07:48 Order name: IV Saline Lock - Large Bore; Complete Time: 07:52 02/09 07:48 Order name: Labs collected and sent; Complete Time: 07:52 02/09 07:48 Order name: O2 Per Protocol; Complete Time: 07:52 02/09 07:48 Order name: O2 Sat Monitoring; Complete Time: 07:53 02/09 07:48 Order name: Urine Dipstick-Ancillary (obtain specimen); Complete Time: 08:17 Administered Medications: 08:03 Drug: NS 0.9% (30 ml/kg) 30 ml/kg {Note: 2000 ml NS .} Route: IV; Rate: bolus; Site: tw2 left wrist; 10:45 Follow up: Response: No adverse reaction; IV Status: Completed infusion; IV Intake: tw2 2000ml 08:06 Drug: Cefepime 1 grams Route: IVPB; Rate: 200 ml/hr; Infused Over: 30 mins; Site: left tw2 wrist; 08:33 Follow up: Response: No adverse reaction; IV Status: Completed infusion tw2 09:12 Follow up: IV Status: Completed infusion; IV Intake: 100ml ch 08:27 Drug: Keppra 1000 mg Route: IV; Rate: calculated rate; Site: right antecubital; tw2 09:12 Follow up: IV Status: Completed infusion; IV Intake: 250ml ch 09:45 Follow up: Response: No adverse reaction; IV Status: Completed infusion aj1 08:37 Drug: vancoMYCIN 1 grams Route: IVPB; Infused Over: 2 hrs; Site: left antecubital; tw2 10:44 Follow up: Response: No adverse reaction; IV Status: Completed infusion aj1 13:56 Drug: D5-NS 1000 ml Route: IV; Rate: 75 ml/hr; Site: left wrist; tw2 19:06 Follow up: IV Status: Infusion continued upon admission ak1 Disposition: 02/10 07:52 Co-signature as Attending Physician, Fredi Perez MD I agree with the assessment and caden plan of care. Disposition: 02/09/19 09:57 Hospitalization ordered by Aaron Roman for Inpatient Admission. Preliminary diagnosis are Epilepsy and recurrent seizures, Dehydration, Hypotension, Sepsis. - Bed requested for Intensive Care Unit. - Status is Inpatient Admission. ak1 - Condition is Fair. - Problem is new. - Symptoms have improved. UTI on Admission? No Signatures: Dispatcher [employer] [facility] Fredi Perez MD MD cha Smirch, Shelby, RN RN Rambo Martinez, TENZIN PA jr8 Jacqueline Harp RN RN ak1 Suzy Agarwal RN RN tw2 Frida Spain Rahel Travis RN Rosetta Olivarez RN aj1 Corrections: (The following items were deleted from the chart) 02/09 08:05 07:49 Chest Single View+[email or web address] ordered. EDMI EDMI 15:14 09:57 Hospitalization Ordered by Aaron Roman for Inpatient Admission. Preliminary diagnosis is Epilepsy and recurrent seizures; Dehydration; Hypotension; Sepsis. Bed requested for Intensive Care Unit. Status is Inpatient Admission. Condition is Fair. Problem is new. Symptoms have improved. UTI on Admission? No. jr8 18:33 15:14 02/09/2019 09:57 Hospitalization Ordered by Aaron Roman for Inpatient Admission. Preliminary diagnosis is Epilepsy and recurrent seizures; Dehydration; Hypotension; Sepsis. Bed requested for [facility] ER HOLD. Status is Inpatient Admission. Condition is Fair. Problem is new. Symptoms have improved. UTI on Admission? No. ss 20:03 18:33 02/09/2019 09:57 Hospitalization Ordered by Aaron Roman for Inpatient ak1 Admission. Preliminary diagnosis is Epilepsy and recurrent seizures; Dehydration; Hypotension; Sepsis. Bed requested for Intensive Care Unit. Status is Inpatient Admission. Condition is Fair. Problem is new. Symptoms have improved. UTI on Admission? No.
[2019-02-09 10:06] LABS: Blood Morphology Comment NOT SEEN (NOT SEEN); Platelet Estimate ADEQ; Urine White Blood Cell Casts OK
--- NOTE | 2019-02-09 10:39 | P.HP ---
Certification for Inpatient With expected LOS: >2 Midnights Patient will require the following post-hospital care: [facility] Practitioner: I am a practitioner with admitting privileges, knowledge of patient current condition, hospital course, and medical plan of care. Services: Services provided to patient in accordance with Admission requirements found in Title 42 Section 412.3 of the Code of Federal Regulations Patient History Date of Service: 02/11/19 Reason for admission: Seizures History of Present Illness: 53-year-old male with a history of traumatic brain injury and seizure disorder was transferred from snf to the emergency department because he had seizure episodes since this morning. long term staff also reports patient had a fever. He was given Versed for the seizures. Patient was unresponsive on arrival per ED note. He was arousable but confused during my examination. Blood work in the ED showed severe lactic acidosis, hyponatremia and mild leukocytosis. UA shows mild evidence of UTI Chest x-ray demonstrated no acute disease. EKG showed sinus tachycardia. His blood pressure noted to be soft. Patient meets criteria for sepsis, source of sepsis unknown. He was given 1000 mg of Keppra IV for the seizures. No seizures noted in the ED. Patient is admitted for further management. Allergies thiopental sodium [From Pentothal] Allergy (Verified 09/10/18 08:34) Anaphylaxis Home medications list reviewed: Yes Home Medications: Sennosides [Senna Laxative] 8.6 mg PO DAILY 06/13/14 Polyethylene Glycol 3350 [Miralax] 17 gm PO DAILY #30 powd.pack 09/22/14 Acetaminophen 1 tab PO DAILY 08/27/15 Acetaminophen with Codeine [Tylenol with-Codeine #3 Tablet] 30 - 300 mg PO Q4HR PRN 08/27/15 Duloxetine HCl [Cymbalta] 20 mg PO BID 08/27/15 Aspirin 325 mg PO DAILY #30 tablet 08/29/15 Famotidine [Pepcid*] 20 mg PO DAILY 09/10/18 Ibuprofen 800 mg PO Q8H PRN 01/06/19 Divalproex Sodium 500 mg PO BID #60 tablet. 01/10/19 Lorazepam [Ativan] 0.5 mg PO DAILY #1 tablet 01/10/19 Oseltamivir [Tamiflu*] 75 mg PO BID #4 cap 01/10/19 levETIRAcetam [Keppra*] 750 mg PO BID 30 Days #60 tab 02/11/19 levoFLOXacin [Levaquin] 500 mg PO DAILY 5 Days #5 tab 02/11/19 - Past Medical/Surgical History Diabetic: No -: subarachnoid hemorrhage -: TBI -: dysphagia -: dementia -: right sided hemiplegia -: barrets esph -: r side contractures -: G Tube -: Trach -: correct R foot alignment sx - Social History Alcohol use: No CD- Drugs: No Caffeine use: Yes Review of Systems is unable to be obtained (Due to altered mental status) Physical Examination - Physical Exam General: In no apparent distress, Other (Drowsy) HEENT: Normocephalic, PERRLA, Mucous membr. moist/pink Neck: Supple, JVD not distended Respiratory: Clear to auscultation bilaterally, Normal air movement Cardiovascular: Normal S1 S2, No murmurs Capillary refill: <2 Seconds Gastrointestinal: Normal bowel sounds, Soft and benign, Non-distended, No ascites, No tenderness Musculoskeletal: No clubbing, No swelling, Contractures (Upper extremities.) Integumentary: No rashes Neurological: Other (Moves all extremities spontaneously.) Lymphatics: No axilla or inguinal lymphadenopathy - Studies Laboratory Data (last 24 hrs) 02/09/19 07:50: PT 11.9, INR 1.01, APTT 27.1 02/09/19 07:50: WBC 12.0 H, Hgb 14.5, Hct 43.3, Plt Count 205 02/09/19 07:50: Sodium 132 L, Potassium 3.9, BUN 7, Creatinine 1.13, Glucose 119 H, Total Bilirubin 0.2, AST 12 L, ALT 26, Alkaline Phosphatase 83, Lipase 116 Assessment and Plan - Problems (Diagnosis) (1) Sepsis Current Visit: Yes Status: Acute (2) Lactic acid acidosis Current Visit: Yes Status: Acute (3) UTI (urinary tract infection) Current Visit: Yes Status: Acute (4) Dysphagia Current Visit: Yes Status: Acute (5) Seizures Current Visit: No Status: Acute (6) Metabolic acidosis Current Visit: Yes Status: Acute (7) Acute renal failure Current Visit: Yes Status: Acute (8) Septic shock Current Visit: Yes Status: Acute - Plan Admit to ICU Sepsis protocol initiated IV vancomycin and cefepime Serial lactate levels IV hydration with normal saline Blood cultures drawn in the ED. Follow urine culture and blood cultures. Status post loading dose Keppra. Suspect breakthrough seizures secondary to fever/sepsis Continue home antiepileptics-Keppra and Depakote. 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 Diet as tolerated. - Advance Directives Does patient have a Living Will: Yes Does patient have a Durable POA for Healthcare: No
[2019-02-09] MEDS ORDERED: D5 0.45 NS 1,000 ML IV ONE (13:46)
[2019-02-09] MEDS ORDERED: levETIRAcetam 750 MG in NA CHLORIDE 0.9% 100 ML IV SCH (19:21)
[2019-02-09] MEDS ORDERED: ACETAMINOPHEN 500 MG TAB PO PRN (19:21)
[2019-02-09] MEDS ORDERED: ONDANSETRON 4 MG/2 ML VIAL IV PRN (19:21)
[2019-02-09] MEDS ORDERED: ALBUTEROL 2.5 MG/3 ML NEB SOL NEB PRN (19:21)
[2019-02-09] MEDS ORDERED: CEFEPIME 1 GM/10 ML SYR IV SCH (19:21)
[2019-02-09] MEDS ORDERED: NA CHLORIDE 0.9% 500 ML IV ONE (19:21)
[2019-02-09] MEDS: HEPARIN 5000 UNIT/ML 1 ML VIAL SQ SCH (19:21)
[2019-02-09 20:02] LABS: Blood Gas Oxyhemoglobin 95.4 % (94-97)
[2019-02-09] MEDS ORDERED: VANCOMYCIN 1 GM/VIAL ONE (20:55)
[2019-02-09] MEDS ORDERED: LEVETIRACETAM 500 MG/5 ML VIAL IV ONE ×2 (21:35→22:01)
[2019-02-09] MEDS: VANCOMYCIN 1.25 GM in NA CHLORIDE 0.9% 250 ML IVPB SCH (21:45)
[2019-02-09] MEDS ORDERED: NA CHLORIDE 0.9% 100 ML ONE (21:59)
[2019-02-09] MEDS ORDERED: NA CHLORIDE 0.9% 250 ML ONE (21:59)
[2019-02-10] MEDS: DIVALPROEX NA 125 MG CAP PO SCH ×3 (00:45→20:29)
[2019-02-10] MEDS: HEPARIN 5000 UNIT/ML 1 ML VIAL SQ SCH ×3 (01:01→17:00)
[2019-02-10] MEDS: NA CHLORIDE 0.9% 1,000 ML IV SCH ×2 (01:37→22:43)
[2019-02-10 05:41] LABS: BUN Blood Urea Nitrogen 6 mg/dL (7-18); Bicarbonate 21 mmol/L (21-32); Glucose Level 90 mg/dL (74-106); HDL Cholesterol 60 mg/dL (40-60); LDL Cholesterol, Calculated 84 (<130); Magnesium 1.9 mg/dL (1.8-2.4); Potassium 3.9 mmol/L (3.5-5.1); Sodium Level 134 mmol/L (136-145)
[2019-02-10 05:52] LABS: Absolute Lymphocytes (CBC) 1.2 K/uL (0.7-4.9); Basophils % 0.4 % (0-1.3); Hematocrit 36.7 % (39.6-49.0); Lymphocytes % 13.2 % (15.3-44.8); MPV 9.2 fL (7.6-11.3); RBC Red Blood Cell Count 4.08 M/uL (4.33-5.43)
[2019-02-10 06:48] VITALS: BMI 23.0
[2019-02-10] MEDS ORDERED: IBUPROFEN 400 MG TAB PO PRN (08:01)
--- NOTE | 2019-02-10 08:13 | P.PN ---
Subjective Date of Service: 02/10/19 Chief Complaint: Seizures The patient is doing much better today. No seizures weakness since hospitalization. He has also been afebrile. He has been tolerating diet but need to feed slowly. Physical Examination - Vital Signs Temperature: 99.3 F Blood Pressure: 101/68 Pulse: 73 Respirations: 13 Pulse Ox (%): 96 - Physical Exam General: In no apparent distress, Cooperative HEENT: PERRLA Neck: Supple, JVD not distended Respiratory: Clear to auscultation bilaterally, Normal air movement Cardiovascular: No edema, Normal pulses, Regular rate/rhythm, Normal S1 S2 Capillary refill: <2 Seconds Gastrointestinal: Normal bowel sounds, Soft and benign, Non-distended Musculoskeletal: Other (Contracted and atrophic right right upper extremity.) Integumentary: No rashes Neurological: Other (Right upper extremity weakness), Abnormal speech - Studies Laboratory Data (last 24 hrs) 02/09/19 07:50: PT 11.9, INR 1.01, APTT 27.1 02/09/19 07:50: WBC 12.0 H, Hgb 14.5, Hct 43.3, Plt Count 205 02/09/19 07:50: Sodium 132 L, Potassium 3.9, BUN 7, Creatinine 1.13, Glucose 119 H, Total Bilirubin 0.2, AST 12 L, ALT 26, Alkaline Phosphatase 83, Lipase 116 Assessment And Plan - Current Problems (Diagnosis) (1) Sepsis Current Visit: Yes Status: Acute (2) Lactic acid acidosis Current Visit: Yes Status: Acute (3) UTI (urinary tract infection) Current Visit: Yes Status: Acute (4) Dysphagia Current Visit: Yes Status: Acute (5) Seizures Current Visit: No Status: Acute (6) Metabolic acidosis Current Visit: Yes Status: Acute (7) Acute renal failure Current Visit: Yes Status: Acute - Plan Continue IV vancomycin and cefepime Continue IV normal saline Follow urine culture and blood cultures. Discontinue antibiotics if no growth after 48 hours. Status post loading dose Keppra in the ED yesterday. Breakthrough seizures secondary to fever/sepsis Valproate level within normal Check Keppra level. Continue home antiepileptics-Keppra and Depakote. 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 Diet as tolerated. Transfer to medical floor.
[2019-02-10] MEDS ORDERED: CEFEPIME 1 GM/10 ML SYR IV SCH (09:00)
[2019-02-10] MEDS: FAMOTIDINE 20 MG TAB PO SCH (10:13)
[2019-02-10] MEDS: ASPIRIN 325 MG TAB PO SCH (10:13)
[2019-02-10] MEDS: VANCOMYCIN 1.25 GM in NA CHLORIDE 0.9% 250 ML IVPB SCH ×2 (10:13→20:30)
[2019-02-10] MEDS: levETIRAcetam 750 MG in NA CHLORIDE 0.9% 100 ML IV SCH ×2 (10:13→20:31)
[2019-02-10] MEDS: CEFEPIME/SWI 1gm 10 ML IV SCH ×2 (10:14→17:01)
[2019-02-10] MEDS: DULOXETINE 20 MG CAP PO SCH ×2 (10:15→20:30)
[2019-02-10] MEDS: SENOSIDES 8.6 MG TAB PO SCH (10:16)
[2019-02-10] MEDS: POLYETHYL GLY 3350 17 GM/DOSE PO SCH (10:16)
[2019-02-10] MEDS ORDERED: LORazepam 2 MG/ML VIAL IV ONE (18:00)
[2019-02-11] MEDS: CEFEPIME/SWI 1gm 10 ML IV SCH ×2 (00:23→08:47)
[2019-02-11] MEDS: HEPARIN 5000 UNIT/ML 1 ML VIAL SQ SCH ×2 (00:23→08:55)
[2019-02-11] MEDS: NA CHLORIDE 0.9% 1,000 ML IV SCH ×2 (01:21→09:37)
[2019-02-11 07:17] LABS: Absolute Lymphocytes (CBC) 1.9 K/uL (0.7-4.9); Basophils % 0.6 % (0-1.3); Hematocrit 35.8 % (39.6-49.0); MPV 8.2 fL (7.6-11.3); RBC Red Blood Cell Count 3.96 M/uL (4.33-5.43)
[2019-02-11 07:28] LABS: BUN Blood Urea Nitrogen 5 mg/dL (7-18); Bicarbonate 25 mmol/L (21-32); Glucose Level 84 mg/dL (74-106); Potassium 3.7 mmol/L (3.5-5.1); Sodium Level 131 mmol/L (136-145)
[2019-02-11 08:13] VITALS: O2SAT 98
[2019-02-11] MEDS: DULOXETINE 20 MG CAP PO SCH (08:45)
[2019-02-11] MEDS: POLYETHYL GLY 3350 17 GM/DOSE PO SCH (08:45)
[2019-02-11] MEDS: ASPIRIN 325 MG TAB PO SCH (08:45)
[2019-02-11] MEDS: SENOSIDES 8.6 MG TAB PO SCH (08:46)
[2019-02-11] MEDS: FAMOTIDINE 20 MG TAB PO SCH (08:46)
[2019-02-11 09:26] LABS: Blood Morphology Comment NOT SEEN (NOT SEEN); Platelet Estimate ADEQ
[2019-02-11] MEDS: levETIRAcetam 750 MG in NA CHLORIDE 0.9% 100 ML IV SCH (09:36)
[2019-02-11] MEDS: VANCOMYCIN 1.25 GM in NA CHLORIDE 0.9% 250 ML IVPB SCH (09:36)
--- NOTE | 2019-02-11 11:09 | P.DS ---
Admission Date: 02/09/19 Discharge Date: 02/11/19 Disposition: TRANSFER TO CORRECTION Discharge Condition: FAIR Reason for Admission: Seizures Consultations: None Procedures: None - Problems (1) Sepsis Current Visit: Yes Status: Acute (2) Lactic acid acidosis Current Visit: Yes Status: Acute (3) UTI (urinary tract infection) Current Visit: Yes Status: Acute (4) Dysphagia Current Visit: Yes Status: Acute (5) Seizures Current Visit: No Status: Acute (6) Metabolic acidosis Current Visit: Yes Status: Acute (7) Acute renal failure Current Visit: Yes Status: Acute Brief History of Present Illness: 53-year-old male with a history of traumatic brain injury and seizure disorder was transferred from long term to the emergency department because he had seizure episodes. [facility] staff also reports patient had a fever. He was given Versed to control the seizures. Patient was unresponsive on arrival per ED note. He was arousable but confused during my examination. Blood work in the ED showed severe lactic acidosis, hyponatremia and mild leukocytosis. UA shows mild evidence of UTI Chest x-ray demonstrated no acute disease. EKG showed sinus tachycardia. His blood pressure noted to be soft. Patient met criteria for sepsis, source of sepsis unknown. He was given 1000 mg of Keppra IV for the seizures. No seizures noted in the ED. Patient was admitted for further management. Hospital Course: Patient initially admitted to the ICU for close monitoring. He was treated with IV vancomycin and cefepime. He was also placed on IV Keppra 750 mg b.i.d. and continue his home dose Depakote. He had no more seizure episodes. The metabolic acidosis, lactic acidosis and leukocytosis resolved. He was afebrile during the hospital stay. His UA suggested mild evidence of UTI. Urine culture and blood cultures yielded no growth. Patient probably had breakthrough seizures secondary to fever. He is prescribed broad-spectrum antibiotics- Levaquin to complete treatment for UTI. His antiepileptics are resumed on discharge. Vital Signs/Physical Exam: Temp Pulse Resp BP Pulse Ox 98.4 F 102 H 18 144/70 H 97 02/11/19 08:00 02/11/19 08:00 02/11/19 08:00 02/11/19 08:00 02/11/19 08:00 General: In no apparent distress, Cooperative HEENT: Mucous membr. moist/pink Neck: Supple, JVD not distended Respiratory: Clear to auscultation bilaterally, Normal air movement Cardiovascular: No edema, Normal pulses, Regular rate/rhythm, Normal S1 S2, No murmurs Capillary refill: <2 Seconds Gastrointestinal: Normal bowel sounds, Soft and benign, Non-distended, No tenderness Musculoskeletal: No swelling Integumentary: No rashes (Left) Neurological: Other (Right-sided weakness and contracture of right upper extremity.) Laboratory Data at Discharge: WBC 6.2 K/uL (4.3-10.9) D 02/11/19 06:50 Hgb 12.6 g/dL (13.6-17.9) L 02/11/19 06:50 Hct 35.8 % (39.6-49.0) L 02/11/19 06:50 Plt Count 141 K/uL (152-406) L D 02/11/19 06:50 PT 11.9 SECONDS (9.5-12.5) 02/09/19 07:50 INR 1.01 02/09/19 07:50 APTT 27.1 SECONDS (24.3-36.9) 02/09/19 07:50 Sodium 131 mmol/L (136-145) L 02/11/19 06:50 Potassium 3.7 mmol/L (3.5-5.1) 02/11/19 06:50 BUN 5 mg/dL (7-18) L 02/11/19 06:50 Creatinine 0.62 mg/dL (0.55-1.3) 02/11/19 06:50 Glucose 84 mg/dL (74-106) 02/11/19 06:50 Phosphorus 3.0 mg/dL (2.5-4.9) 02/10/19 05:05 Magnesium 1.9 mg/dL (1.8-2.4) 02/10/19 05:05 Total Bilirubin 0.2 mg/dL (0.2-1.0) 02/09/19 07:50 AST 12 U/L (15-37) L 02/09/19 07:50 ALT 26 U/L (12-78) 02/09/19 07:50 Alkaline Phosphatase 83 U/L (45-117) 02/09/19 07:50 Triglycerides 77 mg/dL (<150) 02/10/19 05:05 Cholesterol 159 mg/dL (<200) 02/10/19 05:05 HDL Cholesterol 60 mg/dL (40-60) 02/10/19 05:05 Cholesterol/HDL Ratio 2.65 02/10/19 05:05 Lipase 116 U/L (73-393) 02/09/19 07:50 Home Medications: Sennosides [Senna Laxative] 8.6 mg PO DAILY 06/13/14 Polyethylene Glycol 3350 [Miralax] 17 gm PO DAILY #30 powd.pack 09/22/14 Acetaminophen 1 tab PO DAILY 08/27/15 Acetaminophen with Codeine [Tylenol with-Codeine #3 Tablet] 30 - 300 mg PO Q4HR PRN 08/27/15 Duloxetine HCl [Cymbalta] 20 mg PO BID 08/27/15 Aspirin 325 mg PO DAILY #30 tablet 08/29/15 Famotidine [Pepcid*] 20 mg PO DAILY 09/10/18 Ibuprofen 800 mg PO Q8H PRN 01/06/19 Divalproex Sodium 500 mg PO BID #60 tablet. 01/10/19 Lorazepam [Ativan] 0.5 mg PO DAILY #1 tablet 01/10/19 Oseltamivir [Tamiflu*] 75 mg PO BID #4 cap 01/10/19 levETIRAcetam [Keppra*] 750 mg PO BID 30 Days #60 tab 02/11/19 levoFLOXacin [Levaquin] 500 mg PO DAILY 5 Days #5 tab 02/11/19 New Medications: levETIRAcetam [Keppra*] 750 mg PO BID 30 Days #60 tab levoFLOXacin [Levaquin] 500 mg PO DAILY 5 Days #5 tab Diet: Regular Activity: Fall precautions Time spent managing pt's care (in minutes): 35
[2019-02-11] MEDS: DIVALPROEX NA 125 MG CAP PO SCH (11:12)
[2019-02-11] MEDS ORDERED: INFLUENZA VACCINE (for 3y+) 0.5 ML DOSE IMVAC ONE (13:00)
[2019-02-11 14:01] VITALS: BP 158/98; TEMP 97.5
== END 2019-02-11 15:01 | DRG 871 ==
LOC: ER 07:45 → ERHOLD 10:50 → 3RD-ICU 19:33 → 4TH 02-10 11:45
PROVIDERS: ADMIT Internal Medicine; ATTEND Internal Medicine
DX: A41.9 Sepsis, unspecified organism (principal); R65.21 Severe sepsis with septic shock; N39.0 Urinary tract infection, site not specified; N17.9 Acute kidney failure, unspecified; E87.2 Acidosis; E87.1 Hypo-osmolality and hyponatremia; R13.10 Dysphagia, unspecified; G40.909 Epilepsy, unspecified, not intractable, without status epilepticus; R00.0 Tachycardia, unspecified; Z87.820 Personal history of traumatic brain injury
CPT/HCPCS: 36415; 51702; 71045; 80048; 80061; 80076; 80164; 80177; 80202; 81003; 81015; 82550; 82553; 82805; 82962; 83605; 83690; 83735; 84100; 84145; 84484; 85025; 85610; 85730; 87040; 87086; 87088; 90471; 92610; 93005; 94760; 96365; 96367; 96368; 99285; J0692; J1644; J1953; J3370; J7030; J7799; Q2035

== ENCOUNTER 2020-10-26 20:24 | Emergency (ER) | payer OTHER ==
[2020-10-26] MEDS ORDERED: NA CHLORIDE 0.9% 1,000 ML ONE ×2 (21:38→23:52)
[2020-10-26] MEDS ORDERED: NA CHLORIDE 0.9% 100 ML ONE (21:47)
[2020-10-26] MEDS ORDERED: LEVETIRACETAM 500 MG/5 ML VIAL IV ONE (21:47)
[2020-10-26 21:49] LABS: Absolute Lymphocytes (CBC) 0.9 K/uL (0.7-4.9); Basophils % 0.2 % (0-1.3); Hematocrit 38.5 % (39.6-49.0); RBC Red Blood Cell Count 4.12 M/uL (4.33-5.43)
[2020-10-26 21:55] LABS: Protime INR 0.98
[2020-10-26 22:08] LABS: ALT/SGPT 23 U/L (12-78); AST/SGOT 15 U/L (15-37); Albumin 3.7 g/dL (3.4-5.0); Alkaline Phosphatase 62 U/L (45-117); BUN Blood Urea Nitrogen 14 mg/dL (7-18); Bicarbonate 28 mmol/L (21-32); Bilirubin Direct < 0.1 mg/dL (0-0.2); Bilirubin Total 0.2 mg/dL (0.2-1.0); Glucose Level 118 mg/dL (74-106); Potassium 4.5 mmol/L (3.5-5.1); Sodium Level 136 mmol/L (136-145)
[2020-10-27 00:57] LABS: Urine Blood 2+ (Negative); Urine Glucose Negative (Negative); Urine Protein Negative (Negative); Urine pH 7.5 (5.0-7.0)
[2020-10-27] MEDS ORDERED: CEFTRIAXONE/SWI 1gm 1 GM/10 ML SYR ONE (01:22)
[2020-10-27 01:33] LABS: Barbiturates NEGATIVE (NEGATIVE); Benzodiazepines NEGATIVE (NEGATIVE); Cocaine NEGATIVE (NEGATIVE); METHAMPHETAM NEGATIVE (NEGATIVE); Methadone NEGATIVE (NEGATIVE); Opiates NEGATIVE (NEGATIVE); Phencyclidine NEGATIVE (NEGATIVE); THC Cannibis NEGATIVE (NEGATIVE)
--- NOTE | 2020-10-27 03:01 | ER ---
Nurse's Notes [facility] Name: Rafy Blanca Age: 55 yrs Sex: Male : 1965 Arrival Date: 10/26/2020 Time: 20:41 Bed 8 Private MD: Diagnosis: Epilepsy and recurrent seizures;Urinary tract infection, site not specified Presentation: 10/26 20:45 Chief complaint: EMS states: they were toned out by long term for report of pt bb having had a seizure, the first seizure was this morning and was witnessed but approx 90 mins ago he had another one which was not witnessed. Coronavirus screen: At this time, the client does not indicate any symptoms associated with coronavirus-19. Ebola Screen: No symptoms or risks identified at this time. Initial Sepsis Screen: Does the patient meet any 2 criteria? No. Patient's initial sepsis screen is negative. Does the patient have a suspected source of infection? No. Patient's initial sepsis screen is negative. Risk Assessment: Do you want to hurt yourself or someone else? Patient reports no desire to harm self or others. Onset of symptoms was October 26, 2020. 20:45 Method Of Arrival: EMS: [facility] bb 20:45 Acuity: SHONDA 3 bb Historical: - Allergies: 21:01 THIOPENIAL; bb - PMHx: 21:01 Seizures; TBI; bb - Immunization history:: Adult Immunizations unknown. - Social history:: Smoking status: unknown. Screenin:03 Abuse screen: Denies threats or abuse. Nutritional screening: No deficits noted. bb Tuberculosis screening: No symptoms or risk factors identified. Fall Risk None identified. Assessment: 21:03 General: Appears in no apparent distress. slender, Behavior is calm, cooperative. Pain: bb Denies pain. Neuro: Level of Consciousness is awake, alert, obeys commands, Oriented to person. Cardiovascular: Heart tones S1 S2 present Patient's skin is warm and dry. Respiratory: Airway is patent Respiratory effort is even, unlabored, Respiratory pattern is regular. GI: No signs and/or symptoms were reported involving the gastrointestinal system. Derm: Skin is dry, Skin is pale, Skin temperature is warm. Musculoskeletal: Capillary refill < 3 seconds. 22:29 Reassessment: pt is alert and oriented to name, IV site intact, patent with fluids bb infusing awaiting diagnostic results. 23:58 Reassessment: pt is alert and oriented to name, resp unlabored, IV site intact, patent bb with fluids infusing. 10/27 00:00 Reassessment: Patient and/or family updated on plan of care and expected duration. Pain ea level reassessed. Pt alert and oriented to self. 02:15 Reassessment: pt awake and alert oriented to person, resp unlabored, IV site intact. bb 03:10 Reassessment: Patient and/or family updated on plan of care and expected duration. Pain ea level reassessed. Report called to receiving nurse at [facility]. Awaiting for transportation back to facility. Vital Signs: 10/26 20:45 BP 140 / 102; Pulse 125; Resp 16 S; Temp 98.8(O); Pulse Ox 99% on R/A; Weight 63.5 kg bb (R); 22:30 BP 145 / 97; Pulse 106; Resp 16 S; Pulse Ox 98% on R/A; bb 23:58 BP 149 / 117; Pulse 107; Resp 16 S; Pulse Ox 97% on R/A; bb 10/27 02:14 BP 145 / 101; Pulse 103; Resp 16 S; Pulse Ox 96% on R/A; bb 03:11 BP 147 / 94; Pulse 99; Resp 16; Pulse Ox 98% ; ea 03:22 Temp 99.8(O); bb ED Course: 10/26 20:41 Patient arrived in ED. mw2 20:51 Rik Fisher MD is Attending Physician. mh7 20:58 Yuliya Parks RN is Primary Nurse. bb 21:00 Triage completed. bb 21:01 Arm band placed on Patient placed in an exam room, on a stretcher, on manager monitoring, bb on pulse oximetry, Patient seizure precautions initiated. 21:03 Patient has correct armband on for positive identification. Call light in reach. Side bb rails up X2. Seizure precautions initiated. 21:03 Inserted saline lock: 20 gauge in left hand, using aseptic technique. bb 10/27 00:59 Urine collected: straight cath specimen, cloudy. bb 03:11 No provider procedures requiring assistance completed. ea 03:30 IV discontinued, intact, bleeding controlled, No redness/swelling at site. Pressure ea dressing applied. Administered Medications: 10/26 21:31 Drug: NS 0.9% 1000 ml Route: IV; Rate: 1000 ml; Site: left hand; bb 22:33 Follow up: IV Status: Completed infusion; IV Intake: 1000ml bb 21:32 Drug: Keppra (levETIRAcetam) 1000 mg Route: IV; Rate: per protocol; Site: left hand; ea 22:00 Follow up: IV Status: Completed infusion; IV Intake: 100ml bb 23:33 Drug: NS 0.9% 1000 ml Route: IV; Rate: 1000 ml; Site: left antecubital; ea 10/27 00:40 Follow up: IV Status: Completed infusion; IV Intake: 1000ml bb 01:00 Drug: Rocephin (cefTRIAXone) 1 grams Route: IV; Rate: per protocol; Site: left hand; bb 03:30 Follow up: IV Status: Completed infusion ea 03:30 Drug: Tylenol 650 mg Route: PO; ea 03:34 Follow up: Response: No adverse reaction ea 03:34 CANCELLED (Other Intervention Used): Tylenol 1000 mg PO once ea Intake: 10/26 22:00 IV: 100ml; Total: 100ml. bb : IV: 1000ml; Total: 1100ml. bb 10/27 00:40 IV: 1000ml; Total: 2100ml. Outcome: 03:00 Discharge ordered by mh7 03:34 Discharged to long term. Report called to Receiving nurse [facility] at facility for ea transportation home 03:34 Condition: stable 03:34 Discharge instructions given to long term, Instructed on discharge instructions, follow up and referral plans. medication usage, Demonstrated understanding of instructions, follow-up care, medications, Prescriptions given X 1. 03:35 Patient left the ED. ea Signatures: Yuliya Parks RN RN Lois Jimenez RN RN Jaxson Mcclelland mw2 Rik Fisher MD MD mh7 Corrections: (The following items were deleted from the chart) 03:12 03:11 BP 147 / 94; Pulse 101bpm; Resp 16bpm; Pulse Ox 96%; ea ea
--- NOTE | 2020-10-27 03:01 | EDPHYS ---
Physician Documentation [facility] Name: Rafy Blanca Age: 55 yrs Sex: Male : 1965 Arrival Date: 10/26/2020 Time: 20:41 Bed 8 Private MD: ED Physician Rik Fisher HPI: 10/26 21:46 This 55 yrs old Male presents to ER via EMS with complaints of Seizure. mh7 21:46 The patient presents with a history of multiple seizures, a total of 2, after having a mh7 possible seizure episode, no tonic-clonic activity was appreciated, no post-ictal period is described. Character of seizure(s): Loss of consciousness: it is not known if the patient experienced loss of consciousness, Motor activity: the motor activity is unknown, Incontinence: none, Apnea: the patient did not experience apnea, Circulation: the patient did not experience evidence of pulse disturbance, Eye movements: are unknown. Seizure onset: this morning, today. Context: the seizure(s) was witnessed, by the fdc staff, occurred at a fdc or assisted living facility, occurred while the patient was sitting, Contributing factors: none. Seizure Hx: Original onset: longstanding. Associated injury: The patient did not suffer any apparent associated injury. EMS care: none. Current symptoms: Currently, the patient is not experiencing any symptoms, the patient feels back to baseline, no decreased level of consciousness, no confusion, no dysphasia, no headache, no paralysis, no visual changes. Per EMS NH stated that patient had a witnessed seizure this morning. They think he possibly had another seizure this evening that was unwitnessed. There was no reported post ictal state.. Historical: - Allergies: 21:01 THIOPENIAL; bb - PMHx: 21:01 Seizures; TBI; bb - Immunization history:: Adult Immunizations unknown. - Social history:: Smoking status: unknown. ROS: 21:46 Constitutional: Negative for fever, chills, and weight loss, Eyes: Negative for injury, mh7 pain, redness, and discharge, ENT: Negative for injury, pain, and discharge, Neck: Negative for injury, pain, and swelling, Cardiovascular: Negative for chest pain, palpitations, and edema, Respiratory: Negative for shortness of breath, cough, wheezing, and pleuritic chest pain, Abdomen/GI: Negative for abdominal pain, nausea, vomiting, diarrhea, and constipation, Back: Negative for injury and pain, : Negative for injury, bleeding, discharge, and swelling, MS/Extremity: Negative for injury and deformity, Skin: Negative for injury, rash, and discoloration, Psych: Negative for depression, anxiety, suicide ideation, homicidal ideation, and hallucinations, Allergy/Immunology: Negative for hives, rash, and allergies, Endocrine: Negative for neck swelling, polydipsia, polyuria, polyphagia, and marked weight changes, Hematologic/Lymphatic: Negative for swollen nodes, abnormal bleeding, and unusual bruising. Exam: 21:46 Constitutional: This is a well developed, well nourished patient who is awake, alert, mh7 and in no acute distress. Head/Face: Normocephalic, atraumatic. Eyes: Pupils equal round and reactive to light, extra-ocular motions intact. Lids and lashes normal. Conjunctiva and sclera are non-icteric and not injected. Cornea within normal limits. Periorbital areas with no swelling, redness, or edema. Neck: Trachea midline, no thyromegaly or masses palpated, and no cervical lymphadenopathy. Supple, full range of motion without nuchal rigidity, or vertebral point tenderness. No Meningismus. Chest/axilla: Normal chest wall appearance and motion. Nontender with no deformity. No lesions are appreciated. 21:46 Respiratory: Lungs have equal breath sounds bilaterally, clear to auscultation and percussion. No rales, rhonchi or wheezes noted. No increased work of breathing, no retractions or nasal flaring. Abdomen/GI: Soft, non-tender, with normal bowel sounds. No distension or tympany. No guarding or rebound. No evidence of tenderness throughout. Back: No spinal tenderness. No costovertebral tenderness. Full range of motion. Skin: Warm, dry with normal turgor. Normal color with no rashes, no lesions, and no evidence of cellulitis. MS/ Extremity: Pulses equal, no cyanosis. Neurovascular intact. Full, normal range of motion. 21:46 Cardiovascular: Rate: tachycardic, Rhythm: regular, Pulses: no pulse deficits are appreciated, Heart sounds: normal, normal S1and S2, Edema: is not appreciated, JVD: is not appreciated. 21:46 Neuro: Orientation: no acute changes, per EMS, Mentation: no acute changes, per EMS, Memory: no acute changes, per EMS, Cranial nerves: no acute changes, Cerebellar function: no acute changes, Motor: no acute changes, Sensation: no acute changes, Gait: not tested. seizure activity, is not displayed by the patient, Abnormal movements: there are no abnormal movements. Vital Signs: 20:45 BP 140 / 102; Pulse 125; Resp 16 S; Temp 98.8(O); Pulse Ox 99% on R/A; Weight 63.5 kg bb (R); 22:30 BP 145 / 97; Pulse 106; Resp 16 S; Pulse Ox 98% on R/A; bb 23:58 BP 149 / 117; Pulse 107; Resp 16 S; Pulse Ox 97% on R/A; bb 10/27 02:14 BP 145 / 101; Pulse 103; Resp 16 S; Pulse Ox 96% on R/A; bb 03:11 BP 147 / 94; Pulse 99; Resp 16; Pulse Ox 98% ; ea 03:22 Temp 99.8(O); bb MDM: 02:58 Differential diagnosis: drug overdose, seizure, Pseudoseizure, infection. Data [facility] reviewed: vital signs, nurses notes, EMS record, fdc records, lab test result(s), CBC, electrolytes, urinalysis, EKG. Data interpreted: Pulse oximetry: on room air is 96 %. Interpretation: normal. Counseling: I had a detailed discussion with the patient and/or guardian regarding: the historical points, exam findings, and any diagnostic results supporting the discharge/admit diagnosis, the presence of at least one elevated blood pressure reading (>120/80) during this emergency department visit, lab results, the need for outpatient follow up, to return to the emergency department if symptoms worsen or persist or if there are any questions or concerns that arise at home. Response to treatment: the patient's symptoms have resolved after treatment, the patient's blood pressure is in an acceptable range, mental status has returned to baseline, the patient no longer shows bradycardia, the patient is not short of breath, the patient is not tachycardic, the patient's pain is gone, the patient's temperature has normalized. 03:00 Patient medically screened. [facility] 10/26 21:09 Order name: Acetaminophen [facility] 10/26 21:09 Order name: Basic Metabolic Panel [facility] 10/26 21:09 Order name: CBC with Diff; Complete Time: 22:45 [facility] 10/26 21:09 Order name: ETOH Level; Complete Time: 22:45 [facility] 10/26 21:09 Order name: Hepatic Function; Complete Time: 22:45 [facility] 10/26 21:09 Order name: PT-INR; Complete Time: 22:45 [facility] 10/26 21:09 Order name: Ptt, Activated; Complete Time: 22:45 [facility] 10/26 21:09 Order name: Salicylate; Complete Time: 22:45 [facility] 10/26 21:09 Order name: Urine Drug Screen [facility] 10/26 21:09 Order name: Acetaminophen Level; Complete Time: :45 [facility] 10/26 21:09 Order name: Basic Metabolic Panel; Complete Time: :45 [facility] 10/27 00:57 Order name: Urine Dipstick-Ancillary [facility] 10/27 00:59 Order name: Urine Culture [facility] 10/26 21:09 Order name: EKG; Complete Time: 21:09 [facility] 10/26 21:09 Order name: EKG - Nurse/Tech; Complete Time: 21:31 [facility] 10/26 21:09 Order name: IV Saline Lock; Complete Time: 21:12 [facility] 10/26 21:09 Order name: Labs collected and sent; Complete Time: 21:31 [facility] 10/26 21:09 Order name: Urine Dipstick-Ancillary (obtain specimen); Complete Time: 01:49 7 Administered Medications: 10/26 21:31 Drug: NS 0.9% 1000 ml Route: IV; Rate: 1000 ml; Site: left hand; bb 22:33 Follow up: IV Status: Completed infusion; IV Intake: 1000ml bb 21:32 Drug: Keppra (levETIRAcetam) 1000 mg Route: IV; Rate: per protocol; Site: left hand; ea 22:00 Follow up: IV Status: Completed infusion; IV Intake: 100ml bb 23:33 Drug: NS 0.9% 1000 ml Route: IV; Rate: 1000 ml; Site: left antecubital; ea 10/27 00:40 Follow up: IV Status: Completed infusion; IV Intake: 1000ml bb 01:00 Drug: Rocephin (cefTRIAXone) 1 grams Route: IV; Rate: per protocol; Site: left hand; bb 03:30 Follow up: IV Status: Completed infusion ea :30 Drug: Tylenol 650 mg Route: PO; ea :34 Follow up: Response: No adverse reaction ea :34 CANCELLED (Other Intervention Used): Tylenol 1000 mg PO once ea Disposition: 10/27/20 03:00 Discharged to Home. Impression: Epilepsy and recurrent seizures, Urinary tract infection, site not specified. - Condition is Stable. - Discharge Instructions: Urinary Tract Infection, Adult, [id number], Seizure, Adult, [id number]. - Prescriptions for Keflex 500 mg Oral Capsule - take 1 capsule by ORAL route every 12 hours for 10 days; 20 capsule. - Medication Reconciliation Form, Thank You Letter, Antibiotic Education, Prescription Opioid Use form. - Follow up: Private Physician; When: 1 - 2 days; Reason: Worsening of condition, Recheck today's complaints, Continuance of care, Re-evaluation by your physician. - Problem is an acute exacerbation. - Symptoms have improved. Signatures: Dispatcher [employer] EDYuliya Villa RN RN Lois Jimenez RN RN Rik Rice MD MD mh7 Corrections: (The following items were deleted from the chart) 10/26 21:12 21:09 Suicide Screening ([place]) ordered. [facility] 10/27 03:34 03:24 Tylenol 1000 mg PO once ordered. ea :34 03:34 Tylenol 1000 mg PO once ordered. ea 03:35 03:00 10/27/2020 03:00 Discharged to Home. Impression: Epilepsy and recurrent seizures; ea Urinary tract infection, site not specified. Condition is Stable. Forms are Medication Reconciliation Form, Thank You Letter, Antibiotic Education, Prescription Opioid Use. Follow up: Private Physician; When: 1 - 2 days; Reason: Worsening of condition, Recheck today's complaints, Continuance of care, Re-evaluation by your physician. Problem is an acute exacerbation. Symptoms have improved. mh7
[2020-10-27] MEDS ORDERED: ACETAMINOPHEN 325 MG TABLET ONE (03:46)
[2020-10-27 03:49] VITALS: BP 147/94; O2SAT 98
[2020-10-27 03:50] VITALS: TEMP 99.8
--- NOTE | 2020-10-27 06:56 | EKG ---
Test Date: 2020-10-26 Test Time: 21:23:25 [place]: BLAKE MEASUREMENT RESULTS: Intervals: Rate: 124 WY: 126 QRSD: 62 QT: 264 QTc: 379 [place]: P: 58 WY: 126 QRS: 52 T: -18 INTERPRETIVE STATEMENTS: Sinus tachycardia ST & T wave abnormality, consider inferolateral ischemia Abnormal ECG Compared to ECG 02/09/2019 08:31:09 ST (T wave) deviation now present Possible ischemia now present Electronically Signed On 10-27-20 06:56:11 CDT by Gildardo Valerio
== END 2020-10-27 03:35 | disposition home or self-care (01) ==
LOC: ER 20:24
DX: N39.0 Urinary tract infection, site not specified (principal); Z87.820 Personal history of traumatic brain injury; Z88.8 Allergy status to other drugs, medicaments and biological substances
CPT/HCPCS: 93005; 87088; 85025; 87086; 80048; 36415; 80320; 80329 ×2; 85610; 80076; 85730; 87077; 87186; 81003; 80307; J1953; J0696; J7030 ×2; 96361; 96365; 96366; 96367; 99284

== ENCOUNTER → 2023-06-30 | Emergency (ER) | payer OTHER ==
[~2023-06-30] MED LIST: MOXIFLOXACIN HCL 0.5% 3ML OPTH OPTH ONE
--- NOTE | 2023-06-30 09:26 | EDPHYS ---
Physician Documentation [facility] Name: Rafy Blanca Age: 58 yrs Sex: Male : 1965 Arrival Date: 06/30/2023 Time: 08:58 Bed 15 Private MD: ED Physician Garo Boyle HPI: 06/30 09:21 This 58 yrs old Male presents to ER via EMS with complaints of bilateral eye redness sp3 and discharge. 09:21 58-year-old male with history of dementia, depression, hypertension, hemiplegia from [facility] skilled nursing presents to the ED with chief complaint bilateral eye drainage and redness. Patient denies any headache, blurry vision, temporal pain, fever, eye pain, double vision, or any other ocular signs or symptoms. Review of systems otherwise negative for headache, neck pain, chest pain, shortness of breath, URI symptoms, abdominal pain, nausea, vomiting, diarrhea, rash, known sick contacts, travel history, or any other signs or symptoms at this time.. Historical: - Allergies: 09:07 THIOPENIAL; ld1 - PMHx: 09:07 Seizures; TBI; Dementia; Depressive disorder; Hypertensive disorder; hemiplegia; ld1 - Immunization history:: Adult Immunizations up to date. - Social history:: Smoking status: Patient denies any tobacco usage or history of. Patient/guardian denies using alcohol. ROS: 09:22 Constitutional: Negative for fever, chills, and weight loss, ENT: Negative for injury, sp3 pain, and discharge, Neck: Negative for injury, pain, and swelling, Cardiovascular: Negative for chest pain, palpitations, and edema, Respiratory: Negative for shortness of breath, cough, wheezing, and pleuritic chest pain, Abdomen/GI: Negative for abdominal pain, nausea, vomiting, diarrhea, and constipation, Back: Negative for injury and pain, 09:22 All other systems are negative, Exam: 09:23 Constitutional: This is a well developed, well nourished patient who is awake, alert, sp3 and in no acute distress. Head/Face: Normocephalic, atraumatic. ENT: Nares patent. No nasal discharge, no septal abnormalities noted. External auditory canals are clear. Oropharynx with no redness, swelling, or masses, exudates, or evidence of obstruction, uvula midline. Mucous membranes moist. Neck: Trachea midline, no thyromegaly or masses palpated, and no cervical lymphadenopathy. Supple, full range of motion without nuchal rigidity, or vertebral point tenderness. No Meningismus. Chest/axilla: Normal chest wall appearance and motion. Nontender with no deformity. No lesions are appreciated. Cardiovascular: Regular rate and rhythm with a normal S1 and S2. No gallops, murmurs, or rubs. Normal PMI, no JVD. No pulse deficits. Respiratory: Lungs have equal breath sounds bilaterally, clear to auscultation and percussion. No rales, rhonchi or wheezes noted. No increased work of breathing, no retractions or nasal flaring. 09:23 Eyes: Bilateral eye erythema and drainage consistent with conjunctivitis. Mild subconjunctival hemorrhage bilaterally as well. Anterior chambers clear. Grossly eye pressures are normal using palpation. Patient notes no visual changes, double vision or other ocular symptoms. Extraocular movements are intact. . Vital Signs: 09:06 BP 129 / 98; Pulse 84; Resp 18; Temp 98.2(TE); Pulse Ox 100% on R/A; Weight 75 kg; ld1 Height 5 ft. 8 in. ; Pain 0/10; 09:06 Body Mass Index 25.14 (75.00 kg, 172.72 cm) ld1 09:06 Pain Scale: Adult ld1 MDM: 09:10 Patient medically screened. sp3 09:25 Data reviewed: vital signs, nurses notes, EMS record, old medical records. ED course: sp3 58-year-old male with bilateral conjunctivitis bacterial versus viral. I am not highly suspicious for sepsis, orbital cellulitis, meningitis, or other infection. Will treat with Vigamox in the ED and discharged home on Vigamox prescription with follow-up by skilled nursing/primary care physician.. Administered Medications: 09:45 Drug: Vigamox Ophthalmic Drops 0.5 % 2 drops Ophthalmic in both eyes once Route: iw Ophthalmic; Site: both eyes; Disposition Summary: 06/30/23 09:26 Discharge Ordered Notes: Location: Home sp3 Condition: Stable sp3 Diagnosis - Bilateral conjunctivitis sp3 Followup: sp3 - With: Private Physician - When: Upon discharge from the Emergency Department - Reason: Continuance of care Discharge Instructions: - Discharge Summary Sheet sp3 - Bacterial Conjunctivitis, Adult sp3 Forms: - Medication Reconciliation Form sp3 - Thank You Letter sp3 - Antibiotic Education sp3 - Prescription Opioid Use sp3 - Patient Portal Instructions sp3 - Leadership Thank You Letter sp3 Prescriptions: - Vigamox 0.5 % Ophthalmic Drops - instill 1 drop OPHTHALMIC route every 8 hours for 7 days; 5 milliliter; sp3 Refills: 0, Product Selection Permitted Signatures: Marianna Gastelum RN RN iw Crista Cordova RN RN ld1 Garo Boyle MD MD sp3
--- NOTE | 2023-06-30 09:26 | ER ---
Nurse's Notes [facility] Name: Rafy Blanca Age: 58 yrs Sex: Male : 1965 Arrival Date: 06/30/2023 Time: 08:58 Bed 15 Private MD: Diagnosis: Bilateral conjunctivitis Presentation: 06/30 09:06 Chief complaint: EMS states: toned out to [place] for SOTO eye infections X 1 week. ld1 Coronavirus screen: At this time, the client does not indicate any symptoms associated with coronavirus-19. Ebola Screen: No symptoms or risks identified at this time. Initial Sepsis Screen: Does the patient meet any 2 criteria? No. Patient's initial sepsis screen is negative. Does the patient have a suspected source of infection? No. Patient's initial sepsis screen is negative. Risk Assessment: Do you want to hurt yourself or someone else? Patient reports no desire to harm self or others. Onset of symptoms was June 30, 2023. 09:06 Method Of Arrival: EMS: [facility] ld1 09:06 Acuity: SHONDA 4 ld1 Triage Assessment: 09:07 General: Appears in no apparent distress. comfortable, Behavior is calm, cooperative, ld1 appropriate for age. Pain: Denies pain. EENT: Eyes SOTO redness to eyes. Neuro: Level of Consciousness is awake, alert, Oriented to person. Cardiovascular: Capillary refill < 3 seconds Patient's skin is warm and dry. Respiratory: Airway is patent Respiratory effort is even, unlabored. GI: Abdomen is flat, non-distended. : No signs and/or symptoms were reported regarding the genitourinary system. Derm: No signs and/or symptoms reported regarding the dermatologic system. Musculoskeletal: No signs and/or symptoms reported regarding the musculoskeletal system. Historical: - Allergies: 09:07 THIOPENIAL; ld1 - PMHx: 09:07 Seizures; TBI; Dementia; Depressive disorder; Hypertensive disorder; hemiplegia; ld1 - Immunization history:: Adult Immunizations up to date. - Social history:: Smoking status: Patient denies any tobacco usage or history of. Patient/guardian denies using alcohol. Screenin:24 [facility] ED Fall Risk Assessment (Adult) Score/Fall Risk Level 3 or more points = High iw Risk Oriented to surroundings, Maintained a safe environment, Educated pt \T\ family on fall prevention, incl call for assistance when getting out of bed, Hourly rounding (assess needs \T\ fall precautionary measures) done, Used ambulatory aids as needed (educated on \T\ assisted with), Remained with patient while ambulating. Abuse screen: Denies threats or abuse. Denies injuries from another. Nutritional screening: No deficits noted. Tuberculosis screening: No symptoms or risk factors identified. Assessment: 09:21 General: Appears in no apparent distress. comfortable, Behavior is calm, cooperative, iw appropriate for age. Pain: Denies pain. Neuro: Level of Consciousness is awake, alert, obeys commands, Oriented to person. EENT: Sclera/Cornea are reddened in both eyes. 10:02 Reassessment: Call placed to Lillian at [facility], advised patient has been iw discharged, given ophthalmic gtt and received prescription for them also. Vital Signs: 09:06 BP 129 / 98; Pulse 84; Resp 18; Temp 98.2(TE); Pulse Ox 100% on R/A; Weight 75 kg; ld1 Height 5 ft. 8 in. ; Pain 0/10; 09:06 Body Mass Index 25.14 (75.00 kg, 172.72 cm) ld1 09:06 Pain Scale: Adult ld1 ED Course: 09:05 Patient arrived in ED. bd 09:06 Crista Cordova, KENYON is Primary Nurse. ld1 09:07 Triage completed. ld1 09:07 Arm band placed on right wrist. ld1 09:10 Garo Boyle MD is Attending Physician. sp3 09:16 Marianna Gastelum, RN is Primary Nurse. iw 09:25 Patient has correct armband on for positive identification. Bed in low position. Call iw light in reach. Side rails up X 1. Provided Education on: call light, fall precautions. 10:40 No provider procedures requiring assistance completed. Patient did not have IV access nj1 during this emergency room visit. 10:42 Marianna Gastelum, KENYON is Primary Nurse. iw Administered Medications: 09:45 Drug: Vigamox Ophthalmic Drops 0.5 % 2 drops Ophthalmic in both eyes once Route: iw Ophthalmic; Site: both eyes; Medication: 10:40 VIS not applicable for this client. nj1 Outcome: 09:26 Discharge ordered by . sp3 10:40 Discharged to [facility]. Report called to nurse Lillian [email or web address] 10:40 Condition: stable 10:40 Discharge instructions given to [facility], Instructed on discharge instructions, follow up and referral plans. medication usage, Demonstrated understanding of instructions, follow-up care, medications, Prescriptions given X 1, 10:42 Patient left the ED. Signatures: Nancy Marshall Irene RN RN Crista Cordova RN RN ld1 Garo Boyle MD MD sp3 Milka Rodriguez RN RN nj1 Corrections: (The following items were deleted from the chart) 12:28 No provider procedures requiring assistance completed. nj1 nj1 12:28 Patient did not have IV access during this emergency room visit. nj1 nj1
[2023-06-30 10:58] VITALS: BP 129/98; TEMP 98.2; O2SAT 100
== END ==
LOC: ER 08:58
DX: H10.9 Unspecified conjunctivitis (principal); Z88.8 Allergy status to other drugs, medicaments and biological substances